=== PATIENT | female | born 1970 | race Caucasian/White ===

== ENCOUNTER 2020-03-10 12:06 | Inpatient (IN) | payer OTHER ==
[2020-03-10] MEDS ORDERED: Sodium Chloride 0.9% 1,000 ML IV SCH (12:30)
--- NOTE | 2020-03-10 12:33 | EDM.PDOC ---
ED HPI GENERAL MEDICAL PROBLEM - General Chief Complaint: Lower Extremity Injury/Pain Stated Complaint: leg swelling, drainage Time Seen by Provider: 03/10/20 12:22 Source of Information: Reports: Patient History Limitations: Reports: No Limitations - History of Present Illness INITIAL COMMENTS - FREE TEXT/NARRATIVE: Patient to the emergency department complaining of increased redness and swelling to both lower extremities the left worse than right. The patient was seen 2 weeks ago and started on antibiotic and antifungal medication. The patient does have chronic lymphedema to both lower extremities. The patient advises since Wednesday the symptoms have become more worse. The patient denies any chest pain pressure heaviness denies any palpitations irregular heartbeat d enies any calf pain. The patient denies any ear, nose, throat symptoms denies any chest pain or shortness of breath denies any abdominal pain no nausea vomiting denies any fever chills Onset: Gradual Duration: Week(s): (Symptoms over the past 2 weeks) Location: Reports: Lower Extremity, Left, Lower Extremity, Right Quality: Reports: Ache Severity: Moderate Improves with: Reports: None Worsens with: Reports: Movement (Symptoms worse with walking) Context: Reports: Other (Patient does have poor vascular circulation and chronic lymphedema of both lower extremities) Associated Symptoms: Denies: Chest Pain, Fever/Chills, Nausea/Vomiting, Shortness of Breath, Weakness Treatments ESTHETICIAN: Reports: Other (see below) (Patient has been on antibiotics and antifungal medications for 2 weeks) Left Lower Leg Pain Score (Numeric/FACES): 7 - Related Data Allergies Allergy/AdvReac Type Severity Reaction Status Date / Time azithromycin [From Zithromax] Allergy Intermediate Diarrhea Verified 03/10/20 12:09 Penicillins Allergy Intermediate Hives Verified 03/10/20 12:09 strawberry Allergy Intermediate Mouth Sores Verified 03/10/20 12:09 Sulfa (Sulfonamide Allergy Intermediate Hives Verified 03/10/20 12:09 Antibiotics) calamine Allergy Blisters Verified 03/10/20 12:32 clindamycin Allergy Rash Verified 03/10/20 12:09 latex Allergy Blisters Verified 03/10/20 12:32 shellfish Allergy Severe Anaphylactic Uncoded 03/10/20 12:09 Shock nuts Allergy Intermediate Mouth Sores Uncoded 03/10/20 12:09 Home Meds: Home Meds Albuterol [IJD: Ventolin HFA] 1 - 2 puff INH Q4H PRN 01/14/16 [History] Albuterol/Ipratropium [DuoNeb 3.0-0.5 MG/3 ML] 3 ml NEB Q4HRRT PRN 01/14/16 [History] Aspirin [Halfprin] 81 mg PO DAILY 01/14/16 [History] Furosemide [Lasix] 40 mg PO BID 01/14/16 [History] Simvastatin 20 mg PO BEDTIME 01/14/16 [History] estradioL [Estradiol] 1 mg PO DAILY 01/14/16 [History] rOPINIRole HCl [Requip] 1 mg PO BID 01/14/16 [History] rOPINIRole HCl [Ropinirole HCl] 4 mg PO BEDTIME 01/14/16 [History] Ferrous Sulfate [Iron] 325 mg PO DAILY 01/23/16 [History] Pantoprazole Sodium 40 mg PO DAILY 01/23/16 [History] Glucosamine/Chondroitn/C/Steve [Glucosamine-Chondr Complex] 1 each PO DAILY 02/16/19 [History] Pregabalin [Lyrica] 75 mg PO BID 02/16/19 [History] Gabapentin [Neurontin] 100 mg PO BID 08/28/19 [History] Gabapentin [Neurontin] 300 mg PO BEDTIME 08/28/19 [History] Past Medical History - Infectious Disease History Infectious Disease History: Reports: None - Past Surgical History HEENT Surgical History: Reports: Eye Surgery Female Surgical History: Reports: D&C, Hysterectomy Musculoskeletal Surgical History: Reports: Arthroscopic Knee Social & Family History - Tobacco Use Smoking Status *Q: Never Smoker - Caffeine Use Caffeine Use: Reports: Soda - Recreational Drug Use Recreational Drug Use: No Review of Systems - Review of Systems Review Of Systems: See Below Constitutional: Reports: No Symptoms. Denies: Chills, Fever Ears: Reports: No Symptoms Nose: Reports: No Symptoms Mouth/Throat: Reports: No Symptoms Respiratory: Reports: No Symptoms. Denies: Shortness of Breath Cardiovascular: Reports: No Symptoms. Denies: Chest Pain GI/Abdominal: Reports: No Symptoms. Denies: Abdominal Pain, Nausea, Vomiting Genitourinary: Reports: No Symptoms Musculoskeletal: Reports: Muscle Pain Skin: Reports: Erythema, Wound Neurological: Denies: Numbness, Tingling Psychiatric: Reports: No Symptoms ED EXAM, GENERAL - Physical Exam Exam: See Below Exam Limited By: No Limitations General Appearance: Alert, WD/WN, No Apparent Distress Ears: Normal External Exam Nose: Normal Inspection Throat/Mouth: Normal Inspection, Normal Voice, No Airway Compromise Head: Atraumatic, Normocephalic Neck: Normal Inspection, Supple, Non-Tender, Full Range of Motion Respiratory/Chest: No Respiratory Distress, Lungs Clear, Normal Breath Sounds, Chest Non-Tender Cardiovascular: Regular Rate, Rhythm Peripheral Pulses: 1+: Posterior Tibial (L) (positive with a doppler), Posterior Tibial (R) (positive with a doppler), 2+: Radial (L), Radial (R) GI/Abdominal: Soft, Non-Tender, Other (obese) Back Exam: Normal Inspection, Full Range of Motion Extremities: Normal Range of Motion, Normal Capillary Refill, Redness, Other (Significant lymphedema to both lower extremities). No: Janet's Sign Neurological: Alert, Oriented, Normal Cognition, No Motor/Sensory Deficits Psychiatric: Normal Affect, Normal Mood Skin Exam: Warm, Dry, Normal Color, Other (Open areas to both lower extremities mainly the left) Course - Vital Signs Text/Narrative:: The patient was evaluated in the emergency department CBC and general chemistri es are essentially negative lactic acid is normal. CRP is mildly elevated. As the patient has failed outpatient treatment, the patient will be admitted observation where she will have her legs elevated and wrapped with Tony wraps she will have dressings applied to her lower extremities before the Tony wraps. See the nursing notes for details. The patient will also be given Rocephin 2 g IV now and 1 g every 24 hours. The patient will also be given Lasix 40 mg IV as she does take 40 mg p.o. at home routinely. The patient will have lab work redrawn in the morning and further assessed in the morning and a disposition and changes to the treatment plan will be made at that time. Last Recorded V/S: Last Vital Signs Temp 36.8 C 03/10/20 12:07 Pulse 96 03/10/20 12:07 Resp 16 03/10/20 12:07 BP 163/82 H 03/10/20 12:07 Pulse Ox 99 03/10/20 12:07 - Orders/Labs/Meds Orders: Active Orders 24 hr Category Date Time Status Patient Status Manage Transfer [TRANSFER] Routine ADT 03/10/20 13:37 Active CULTURE BLOOD [BC] Stat Lab 03/10/20 12:42 Received CULTURE BLOOD [BC] Stat Lab 03/10/20 13:00 Received CULTURE WOUND [RM] Stat Lab 03/10/20 12:25 Ordered UA W/GAYLA RFLX IF INDICATED [URIN] Stat Lab 03/10/20 12:26 Ordered Sodium Chloride 0.9% [Normal Saline] 1,000 ml Med 03/10/20 12:30 Active IV ASDIRECTED cefTRIAXone [Rocephin] Med 03/11/20 14:00 Ordered 1 gm IVPUSH Q24H Blood Culture x2 Reflex Set [OM.PC] Stat Oth 03/10/20 12:26 Ordered Resuscitation Status Routine Resus Stat 03/10/20 13:41 Ordered Medication Orders Ceftriaxone Sodium (Rocephin) 1 gm IVPUSH Q24H [facility] Sodium Chloride (Normal Saline) 1,000 mls @ 75 mls/hr IV ASDIRECTED [facility] Last Admin: 03/10/20 12:46 Dose: 75 mls/hr Documented by: GWEN Labs: Laboratory Tests 03/10/20 03/10/20 03/10/20 Range/Units 12:42 12:42 12:42 WBC 6.3 (5.0-10.0) 10^3/uL RBC 4.92 (4.00-5.50) 10^6/uL Hgb 15.0 (12.0-16.0) g/dL Hct 44.5 (37.0-47.0) % MCV 90.4 (82.0-94.0) fL MCH 30.5 (27.0-32.0) pg MCHC 33.7 (33.0-38.0) g/dL RDW Coeff of Debi 12.9 (11.0-15.0) % Plt Count 305 (150-400) 10^3/uL Add Manual Diff Yes Neutrophils % (Manual) 47 (35-85) % Lymphocytes % (Manual) 38 (21-55) % Monocytes % (Manual) 4 (2-12) % Eosinophils % (Manual) 11 H (0-5) % Absolute Neutrophils 2.96 (1.80-7.00) 10^3/uL Lymphocytes # (Manual) 2.39 (1.00-4.80) 10^3/uL Monocytes # (Manual) 0.25 (0.00-0.80) 10^3/uL Eosinophils # (Manual) 0.69 H (0.00-0.45) 10^3/uL Sodium 143 (136-145) mEq/L Potassium 3.8 (3.5-5.0) mEq/L Chloride 105 (98-106) mEq/L Carbon Dioxide 29 (21-32) mmol/L BUN 23 H (7-18) mg/dL Creatinine 1.0 (0.6-1.0) mg/dL Est Cr Clr Drug Dosing 55.68 mL/min Estimated GFR (MDRD) 59 L (>=60) mL/min Glucose 151 H (75-99) mg/dL Lactic Acid 1.6 (0.4-2.0) mmol/L Calcium 8.5 (8.4-10.1) mg/dL Total Bilirubin 0.2 (0.0-1.0) mg/dL AST 33 (15-37) U/L ALT 44 (12-78) U/L Alkaline Phosphatase 92 (46-116) U/L C-Reactive Protein 1.7 H (0.2-0.8) mg/dL Total Protein 6.6 (6.4-8.2) g/dL Albumin 3.1 L (3.4-5.0) g/dL Meds: Medications Generic Name Dose Route Start Last Admin Trade Name Freq PRN Reason Stop Dose Admin Ceftriaxone Sodium 1 gm 03/11/20 14:00 Rocephin IVPUSH Q24H [facility] Sodium Chloride 1,000 mls @ 75 mls/hr 03/10/20 12:30 03/10/20 12:46 Normal Saline IV 75 mls/hr ASDIRECTED [facility] Administration Discontinued Medications Generic Name Dose Route Start Last Admin Trade Name Freq PRN Reason Stop Dose Admin Ceftriaxone Sodium 2 gm 03/10/20 13:46 Rocephin IVPUSH 03/10/20 13:47 ONETIME ONE Departure - Departure Time of Disposition: 13:49 Disposition: Refer to Observation Condition: Good Clinical Impression: Cellulitis of both lower extremities, Failure of outpatient treatment, Chronic acquired lymphedema - Discharge Information *PRESCRIPTION DRUG MONITORING PROGRAM REVIEWED*: Not Applicable *COPY OF PRESCRIPTION DRUG MONITORING REPORT IN PATIENT NATA: Not Applicable Referrals: PCP,Unknown [Primary Care Provider] - Forms: ED Department Discharge Sepsis Event Note (ED) - Evaluation Sepsis Screening Result: No Definite Risk - Focused Exam Vital Signs: Vital Signs Temp Pulse Resp BP Pulse Ox 03/10/20 12:07 36.8 C 96 16 163/82 H 99 - Problem List & Annotations (1) Cellulitis of both lower extremities SNOMED Code(s): 647927838 Code(s): L03.115 - CELLULITIS OF RIGHT LOWER LIMB; L03.116 - CELLULITIS OF LEFT LOWER LIMB Status: Acute Priority: High Current Visit: Yes (2) Chronic acquired lymphedema SNOMED Code(s): 35820493 Code(s): I89.0 - LYMPHEDEMA, NOT ELSEWHERE CLASSIFIED Status: Acute Priority: High Current Visit: Yes (3) Failure of outpatient treatment SNOMED Code(s): 152747778 Code(s): Z78.9 - OTHER SPECIFIED HEALTH STATUS Status: Acute Priority: Medium Current Visit: Yes - Problem List Review Problem List Initiated/Reviewed/Updated: Yes - My Orders Last 24 Hours: My Active Orders 03/10/20 12:25 CULTURE WOUND [RM] Stat 03/10/20 12:26 UA W/GAYLA RFLX IF INDICATED [URIN] Stat Blood Culture x2 Reflex Set [OM.PC] Stat 03/10/20 12:30 Sodium Chloride 0.9% [Normal Saline] 1,000 ml IV ASDIRECTED 03/10/20 12:42 CULTURE BLOOD [BC] Stat 03/10/20 13:00 CULTURE BLOOD [BC] Stat 03/10/20 13:37 Patient Status Manage Transfer [TRANSFER] Routine 03/10/20 13:41 Resuscitation Status Routine 03/11/20 14:00 cefTRIAXone [Rocephin] 1 gm IVPUSH Q24H - Assessment/Plan Admission H&P: Please use this note as an admission H&P Last 24 Hours: My Active Orders 03/10/20 12:25 CULTURE WOUND [RM] Stat 03/10/20 12:26 UA W/GAYLA RFLX IF INDICATED [URIN] Stat Blood Culture x2 Reflex Set [OM.PC] Stat 03/10/20 12:30 Sodium Chloride 0.9% [Normal Saline] 1,000 ml IV ASDIRECTED 03/10/20 12:42 CULTURE BLOOD [BC] Stat 03/10/20 13:00 CULTURE BLOOD [BC] Stat 03/10/20 13:37 Patient Status Manage Transfer [TRANSFER] Routine 03/10/20 13:41 Resuscitation Status Routine 03/11/20 14:00 cefTRIAXone [Rocephin] 1 gm IVPUSH Q24H Plan: The patient's past medical story, past surgical history, social history and past family medical history is reviewed see the nursing notes for complete details
[2020-03-10] MEDS ORDERED: cefTRIAXone 2 GM Vial IVPUSH ONE (13:46)
[2020-03-10] MEDS ORDERED: Morphine 4 MG/ML VIAL IVPUSH PRN (13:54)
[2020-03-10] MEDS: Sodium Chloride 0.9% 1,000 ML IV SCH (14:05)
[2020-03-10] MEDS ORDERED: Albuterol/Ipratropium 3.0-0.5 MG/3 ML Neb Soln NEB PRN (14:15)
[2020-03-10] MEDS ORDERED: Albuterol 8 GM Inhaler INH PRN (14:15)
[2020-03-10] MEDS ORDERED: Sodium Chloride 0.9% 10 ML Syringe FLUSH PRN (14:15)
[2020-03-10] MEDS: Furosemide 40 MG/4 ML VIAL IVPUSH SCH (14:43)
[2020-03-10] MEDS: Acetaminophen/HYDROcodone 325-5 MG Tab PO PRN ×2 (14:56→19:36)
[2020-03-10] MEDS: Gabapentin 100 MG Cap **OWN MED PO SCH ×2 (18:02→19:31)
[2020-03-10] MEDS: ROPINIROLE 4 MG PO SCH (19:30)
[2020-03-10] MEDS: Simvastatin 20 MG Tab **OWN MED PO SCH (19:32)
[2020-03-10] MEDS: PREGABALIN 75 MG PO SCH (19:32)
[2020-03-11] MEDS: Acetaminophen/HYDROcodone 325-5 MG Tab PO PRN ×4 (00:44→22:04)
[2020-03-11] MEDS: Sodium Chloride 0.9% 1,000 ML IV SCH ×2 (00:47→19:34)
[2020-03-11] MEDS: Furosemide 40 MG/4 ML VIAL IVPUSH SCH ×2 (02:14→14:24)
[2020-03-11] MEDS ORDERED: [UNRECOGNIZED DRUG - OTHER] PO SCH (08:00)
[2020-03-11] MEDS ORDERED: ESCITALOPRAM 10 MG PO SCH (08:00)
[2020-03-11 08:04] LABS: CHLORIDE,CL 106 mEq/L (98-106); SODIUM,NA 142 mEq/L (136-145)
[2020-03-11] MEDS: Gabapentin 100 MG Cap **OWN MED PO SCH ×3 (08:06→19:22)
[2020-03-11] MEDS: ESTRADIOL 1 MG PO SCH (08:06)
[2020-03-11] MEDS: PREGABALIN 75 MG PO SCH ×2 (08:07→19:23)
[2020-03-11] MEDS: Pantoprazole 40 MG Tab.CR PO SCH (08:08)
[2020-03-11] MEDS: Aspirin 81 MG Tab.EC PO SCH (08:15)
[2020-03-11] MEDS: Ferrous Sulfate 324 MG Tab.EC PO SCH (08:18)
[2020-03-11] MEDS ORDERED: Enoxaparin 40 MG/0.4 ML Syringe SUBCUT SCH (09:00)
--- NOTE | 2020-03-11 10:30 | PCM.PN ---
- General Info Date of Service: 03/11/20 Admission Dx/Problem (Free Text): Cellulitis bilateral lower extremities Functional Status: Reports: Pain Controlled (has increased discomfort with palpation of the left lower leg), Tolerating Diet, Ambulating - Review of Systems General: Denies: Fever HEENT: Reports: No Symptoms Pulmonary: Reports: No Symptoms Cardiovascular: Reports: No Symptoms Gastrointestinal: Reports: No Symptoms Musculoskeletal: Reports: Leg Pain Skin: Reports: Other (open ulcerated areas to left leg) Neurological: Reports: No Symptoms - Patient Data Vitals - Most Recent: Last Vital Signs Temp 97.3 F 03/11/20 07:57 Pulse 77 03/11/20 07:57 Resp 18 03/11/20 07:57 BP 141/61 H 03/11/20 07:57 Pulse Ox 98 03/11/20 07:57 Weight - Most Recent: 350 lb 6.4 oz I&O - Last 24 Hours: Intake & Output 03/10/20 03/11/20 03/11/20 22:59 06:59 14:59 Intake Total 803 Balance 803 Lab Results Last 24 Hours: Laboratory Results - last 24 hr 03/10/20 03/10/20 03/10/20 Range/Units 12:42 12:42 12:42 WBC 6.3 (5.0-10.0) 10^3/uL RBC 4.92 (4.00-5.50) 10^6/uL Hgb 15.0 (12.0-16.0) g/dL Hct 44.5 (37.0-47.0) % MCV 90.4 (82.0-94.0) fL MCH 30.5 (27.0-32.0) pg MCHC 33.7 (33.0-38.0) g/dL RDW Coeff of Debi 12.9 (11.0-15.0) % Plt Count 305 (150-400) 10^3/uL Neut % (Auto) (35-85) % Lymph % (Auto) (10-55) % [place] % (Auto) (0-16) % Eos % (Auto) (0-5) % Baso % (Auto) (0-3) % Neut # (Auto) (1.80-7.00) 10^3/uL Lymph # (Auto) (1.00-4.80) 10^3/uL [place] # (Auto) (0.00-0.80) 10^3/uL Eos # (Auto) (0.00-0.45) 10^3/uL Baso # (Auto) 10^3/uL Add Manual Diff Yes Neutrophils % (Manual) 47 (35-85) % Lymphocytes % (Manual) 38 (21-55) % Monocytes % (Manual) 4 (2-12) % Eosinophils % (Manual) 11 H (0-5) % Absolute Neutrophils 2.96 (1.80-7.00) 10^3/uL Lymphocytes # (Manual) 2.39 (1.00-4.80) 10^3/uL Monocytes # (Manual) 0.25 (0.00-0.80) 10^3/uL Eosinophils # (Manual) 0.69 H (0.00-0.45) 10^3/uL Sodium 143 (136-145) mEq/L Potassium 3.8 (3.5-5.0) mEq/L Chloride 105 (98-106) mEq/L Carbon Dioxide 29 (21-32) mmol/L BUN 23 H (7-18) mg/dL Creatinine 1.0 (0.6-1.0) mg/dL Est Cr Clr Drug Dosing 55.68 mL/min Estimated GFR (MDRD) 59 L (>=60) mL/min Glucose 151 H (75-99) mg/dL Lactic Acid 1.6 (0.4-2.0) mmol/L Calcium 8.5 (8.4-10.1) mg/dL Magnesium (1.8-2.4) mg/dL Total Bilirubin 0.2 (0.0-1.0) mg/dL AST 33 (15-37) U/L ALT 44 (12-78) U/L Alkaline Phosphatase 92 (46-116) U/L C-Reactive Protein 1.7 H (0.2-0.8) mg/dL Total Protein 6.6 (6.4-8.2) g/dL Albumin 3.1 L (3.4-5.0) g/dL Urine Color (YELLOW) Urine Appearance (CLEAR) Urine pH (4.5-8.0) Ur Specific [place] (1.003-1.020) Urine Protein (NEGATIVE) mg/dL Urine Glucose (UA) (NEGATIVE) mg/dL Urine Ketones (NEGATIVE) mg/dL Urine Occult Blood (NEGATIVE) Urine Nitrite (NEGATIVE) Urine Bilirubin (NEGATIVE) Urine Urobilinogen (0.2-1.0) EU/dL Ur Leukocyte Esterase (NEGATIVE) 03/10/20 03/11/20 03/11/20 Range/Units 14:00 07:50 07:50 WBC 6.4 (5.0-10.0) 10^3/uL RBC 4.41 (4.00-5.50) 10^6/uL Hgb 13.4 (12.0-16.0) g/dL Hct 40.8 (37.0-47.0) % MCV 92.5 (82.0-94.0) fL MCH 30.4 (27.0-32.0) pg MCHC 32.8 L (33.0-38.0) g/dL RDW Coeff of Debi 13.2 (11.0-15.0) % Plt Count 280 (150-400) 10^3/uL Neut % (Auto) 49.3 (35-85) % Lymph % (Auto) 31.8 (10-55) % [place] % (Auto) 8.8 (0-16) % Eos % (Auto) 9.6 H (0-5) % Baso % (Auto) 0.5 (0-3) % Neut # (Auto) 3.14 (1.80-7.00) 10^3/uL Lymph # (Auto) 2.02 (1.00-4.80) 10^3/uL [place] # (Auto) 0.56 (0.00-0.80) 10^3/uL Eos # (Auto) 0.61 H (0.00-0.45) 10^3/uL Baso # (Auto) 0.03 10^3/uL Add Manual Diff Neutrophils % (Manual) (35-85) % Lymphocytes % (Manual) (21-55) % Monocytes % (Manual) (2-12) % Eosinophils % (Manual) (0-5) % Absolute Neutrophils (1.80-7.00) 10^3/uL Lymphocytes # (Manual) (1.00-4.80) 10^3/uL Monocytes # (Manual) (0.00-0.80) 10^3/uL Eosinophils # (Manual) (0.00-0.45) 10^3/uL Sodium 142 (136-145) mEq/L Potassium 3.5 (3.5-5.0) mEq/L Chloride 106 (98-106) mEq/L Carbon Dioxide 30 (21-32) mmol/L BUN 19 H (7-18) mg/dL Creatinine 0.9 (0.6-1.0) mg/dL Est Cr Clr Drug Dosing 61.86 mL/min Estimated GFR (MDRD) > 60 (>=60) mL/min Glucose 140 H (75-99) mg/dL Lactic Acid (0.4-2.0) mmol/L Calcium 7.8 L (8.4-10.1) mg/dL Magnesium 2.0 (1.8-2.4) mg/dL Total Bilirubin (0.0-1.0) mg/dL AST (15-37) U/L ALT (12-78) U/L Alkaline Phosphatase (46-116) U/L C-Reactive Protein (0.2-0.8) mg/dL Total Protein (6.4-8.2) g/dL Albumin (3.4-5.0) g/dL Urine Color Dark yellow (YELLOW) Urine Appearance Slightly cloudy (CLEAR) Urine pH 6.5 (4.5-8.0) Ur Specific [place] 1.025 H (1.003-1.020) Urine Protein Negative (NEGATIVE) mg/dL Urine Glucose (UA) Negative (NEGATIVE) mg/dL Urine Ketones Negative (NEGATIVE) mg/dL Urine Occult Blood Negative (NEGATIVE) Urine Nitrite Negative (NEGATIVE) Urine Bilirubin Negative (NEGATIVE) Urine Urobilinogen 0.2 (0.2-1.0) EU/dL Ur Leukocyte Esterase Negative (NEGATIVE) Terry Results Last 24 Hours: Microbiology 03/10/20 14:00 Wound Culture - Preliminary Leg, Left Gram Positive Cocci Gram Negative Rods Med Orders - Current: Current Medications Hydrocodone Bitart/Acetaminophen ([place] 325-5 Mg) 1 tab PO Q4H PRN PRN Reason: Pain (moderate 4-6) Last Admin: 03/11/20 00:44 Dose: 1 tab Documented by: Albuterol (Ventolin Hfa) 1 - 2 gm INH Q4H PRN PRN Reason: Shortness of Breath Albuterol/Ipratropium (Duoneb 3.0-0.5 Mg/3 Ml) 3 ml NEB Q4H PRN PRN Reason: Shortness of Breath Aspirin (Halfprin) 81 mg PO DAILY [facility] Last Admin: 03/11/20 08:15 Dose: 81 mg Documented by: Ceftriaxone Sodium (Rocephin) 1 gm IVPUSH Q24H [facility] Enoxaparin Sodium (Lovenox) 40 mg SUBCUT Q24H [facility] Last Admin: 03/11/20 08:15 Dose: 40 mg Documented by: Estradiol (Estradiol) 1 mg PO DAILY [facility] Last Admin: 03/11/20 08:06 Dose: 1 mg Documented by: Ferrous Sulfate (Ferrous Sulfate) 324 mg PO DAILY [facility] Last Admin: 03/11/20 08:18 Dose: 324 mg Documented by: Furosemide (Lasix) 40 mg IVPUSH Q12H [facility] Last Admin: 03/11/20 02:14 Dose: 40 mg Documented by: Gabapentin (Neurontin) 100 mg PO BID@0800,1500 [facility] Last Admin: 03/11/20 08:06 Dose: 100 mg Documented by: Gabapentin (Neurontin) 300 mg PO BEDTIME [facility] Last Admin: 03/10/20 19:31 Dose: 300 mg Documented by: Sodium Chloride (Normal Saline) 1,000 mls @ 75 mls/hr IV ASDIRECTED [facility] Last Admin: 03/11/20 00:47 Dose: 75 mls/hr Documented by: Vancomycin HCl 1.75 gm/ Premix 350 mls @ 175 mls/hr IV Q12H [facility] Morphine Sulfate (Morphine) 4 mg IVPUSH Q4H PRN PRN Reason: Pain (severe 7-10) Non-Formulary Medication (Glucosamine/Chondroitn/C/Steve [Glucosamine-Chondr Complex]) 1 each PO DAILY [facility] Pregabalin 75 Mg (Caps Own Med) 0 each PO BID [facility] Last Admin: 03/11/20 08:07 Dose: 1 each Documented by: Ropinirole 4 Mg (Own Med) 0 mg PO BEDTIME [facility] Last Admin: 03/10/20 19:30 Dose: 4 mg Documented by: Escitalopram 10 Mg * (*Own Med) 0 each PO 0800 [facility] Last Admin: 03/11/20 08:07 Dose: 1 each Documented by: Pantoprazole Sodium (Protonix) 40 mg PO DAILY [facility] Last Admin: 03/11/20 08:08 Dose: 40 mg Documented by: Simvastatin (Zocor) 20 mg PO BEDTIME [facility] Last Admin: 03/10/20 19:32 Dose: 20 mg Documented by: Sodium Chloride (Saline Flush) 10 ml FLUSH ASDIRECTED PRN PRN Reason: Keep Vein Open Vancomycin HCl (Pharmacy To Dose - Vancomycin) 0 dose .XX ASDIRECTED [facility] Discontinued Medications Ceftriaxone Sodium (Rocephin) 2 gm IVPUSH ONETIME ONE Stop: 03/10/20 13:47 Last Admin: 03/10/20 13:54 Dose: 2 gm Documented by: Ceftriaxone Sodium (Rocephin) 1 gm IVPUSH Q24H [facility] Sodium Chloride (Normal Saline) 1,000 mls @ 75 mls/hr IV ASDIRECTED [facility] Last Admin: 03/10/20 12:46 Dose: 75 mls/hr Documented by: Ropinirole 2 Mg Tabs (Own Med) 0 each PO 0800,1200 [facility] - Exam General: Alert, Oriented HEENT: Mucous Membr. Moist/[place] Neck: Supple Lungs: Clear to Auscultation, Normal Respiratory Effort Cardiovascular: Regular Rate, Regular Rhythm GI/Abdominal Exam: Normal Bowel Sounds, Soft, Non-Tender Extremities: Pedal Edema, Leg Pain, Increased Warmth, Other (Patient has increased redness, excoriated areas to left posterior leg. Tender with palpation. Has serosanguinous drainage noted. Bandage from right leg not removed but pictures viewed from area show left leg has more concern) Wound/Incisions: Drainage, Erythema Improving Sepsis Event Note - Evaluation Sepsis Screening Result: No Definite Risk - Focused Exam Vital Signs: Vital Signs Temp Pulse Resp BP Pulse Ox 03/11/20 07:57 97.3 F 77 18 141/61 H 98 03/11/20 00:00 97.7 F 90 20 128/56 L 96 Date Exam was Performed: 03/11/20 Time Exam was Performed: 10:23 - Problem List & Annotations (1) Cellulitis of both lower extremities SNOMED Code(s): 736476436 Code(s): L03.115 - CELLULITIS OF RIGHT LOWER LIMB; L03.116 - CELLULITIS OF LEFT LOWER LIMB Status: Acute Priority: High Current Visit: Yes - Problem List Review Problem List Initiated/Reviewed/Updated: Yes - My Orders Last 24 Hours: My Active Orders 03/11/20 09:36 PT Evaluation and Treatment [CONS] Routine 03/11/20 09:45 Pharmacy to Dose - Vancomycin See Dose Instructions .XX ASDIRECTED 03/11/20 11:00 Vancomycin/Water for INJ (PEG) [Vancomycin 2 GM/400 ML Premix] 1.75 gm Premix Bag 1 bag IV Q12H - Assessment Assessment:: Cellulitis of bilateral lower extremities. - Plan Plan:: Patient continues to have discomfort in LLE, especially with any manipulation of leg and dressing change. Does have moderate amount of serosanguinous drainage noted on the bandage. Excoriated, open lesions to posterior leg. Leg is warm to the touch, tender. Very red. No fevers. Labs remain stable, WBC is normal at 6.3. Will have PT look in to ordering pump compression devices that she can utilize at home for the edema in her legs. Add Vancomycin in addition to the Rocephin. Ambulate. Transfer to acute status.
[2020-03-11] MEDS ORDERED: Vancomycin 1.75 GM in Sodium Chloride 0.9% 500 ML IV SCH (12:00)
[2020-03-11] MEDS ORDERED: cefTRIAXone 1 GM Vial IVPUSH SCH (14:00)
[2020-03-11] MEDS: cefTRIAXone 1 GM Vial IVPUSH SCH (14:24)
[2020-03-11] MEDS: ROPINIROLE 4 MG PO SCH (19:23)
[2020-03-11] MEDS: Simvastatin 20 MG Tab **OWN MED PO SCH (19:24)
[2020-03-11] MEDS: Vancomycin 1.75 GM in Sodium Chloride 0.9% 500 ML IV SCH (20:18)
[2020-03-12] MEDS: Ibuprofen 200 MG Tab PO PRN ×2 (00:04→21:27)
[2020-03-12] MEDS ORDERED: Gabapentin 100 MG Cap PO SCH (07:32)
[2020-03-12] MEDS: Furosemide 40 MG/4 ML VIAL IVPUSH SCH ×2 (07:45→15:26)
[2020-03-12] MEDS: ROPINIROLE 2 MG PO SCH ×4 (07:45→14:51)
[2020-03-12] MEDS: Aspirin 81 MG Tab.EC PO SCH (07:48)
[2020-03-12] MEDS: Ferrous Sulfate 324 MG Tab.EC PO SCH (07:49)
[2020-03-12] MEDS: Pregabalin 25 MG Cap PO SCH ×2 (07:49→19:38)
[2020-03-12] MEDS: Gabapentin 100 MG CAP PO SCH ×2 (07:49→14:51)
[2020-03-12] MEDS: ESTRADIOL 1 MG PO SCH (07:53)
[2020-03-12] MEDS: Enoxaparin 40 MG/0.4 ML Syringe SUBCUT SCH (07:53)
[2020-03-12] MEDS: Citalopram 10 MG Tab PO SCH (08:02)
[2020-03-12 08:03] LABS: CHLORIDE,CL 109 mEq/L (98-106); SODIUM,NA 144 mEq/L (136-145)
[2020-03-12] MEDS: Pantoprazole 40 MG Tab.CR PO SCH (08:03)
--- NOTE | 2020-03-12 08:18 | PCM.PN ---
- General Info Date of Service: 03/12/20 Admission Dx/Problem (Free Text): Cellulitis bilateral lower extremities Functional Status: Reports: Pain Controlled, Tolerating Diet, Ambulating - Review of Systems General: Reports: Malaise. Denies: Fever, Weakness, Fatigue HEENT: Reports: No Symptoms Pulmonary: Denies: Shortness of Breath, Cough Cardiovascular: Reports: Edema. Denies: Chest Pain Gastrointestinal: Denies: Abdominal Pain, Nausea, Vomiting Genitourinary: Reports: No Symptoms Musculoskeletal: Reports: Leg Pain Skin: Reports: Other (redness, warmth and drainage noted to legs. tender) Neurological: Reports: No Symptoms - Patient Data Vitals - Most Recent: Last Vital Signs Temp 96.3 F L 03/12/20 04:00 Pulse 83 03/12/20 04:00 Resp 18 03/12/20 04:00 BP 129/58 L 03/12/20 04:00 Pulse Ox 98 03/12/20 04:00 Weight - Most Recent: 350 lb 6.4 oz Lab Results Last 24 Hours: Laboratory Results - last 24 hr 03/12/20 Range/Units 07:30 WBC 5.6 (5.0-10.0) 10^3/uL RBC 4.25 (4.00-5.50) 10^6/uL Hgb 13.0 (12.0-16.0) g/dL Hct 39.7 (37.0-47.0) % MCV 93.4 (82.0-94.0) fL MCH 30.6 (27.0-32.0) pg MCHC 32.7 L (33.0-38.0) g/dL RDW Coeff of Debi 13.1 (11.0-15.0) % Plt Count 262 (150-400) 10^3/uL Neut % (Auto) 49.0 (35-85) % Lymph % (Auto) 31.9 (10-55) % Zavala % (Auto) 7.7 (0-16) % Eos % (Auto) 10.9 H (0-5) % Baso % (Auto) 0.5 (0-3) % Neut # (Auto) 2.75 (1.80-7.00) 10^3/uL Lymph # (Auto) 1.79 (1.00-4.80) 10^3/uL [place] # (Auto) 0.43 (0.00-0.80) 10^3/uL Eos # (Auto) 0.61 H (0.00-0.45) 10^3/uL Baso # (Auto) 0.03 10^3/uL Terry Results Last 24 Hours: Microbiology 03/10/20 14:00 Wound Culture - Preliminary Leg, Left Streptococcus Group A Gram Negative Rods 03/10/20 13:00 Aerobic Blood Culture - Preliminary Blood - Venous NO GROWTH AFTER 1 DAY Anaerobic Blood Culture - Preliminary NO GROWTH AFTER 1 DAY 03/10/20 12:42 Aerobic Blood Culture - Preliminary Blood - Venous - Lab Draw NO GROWTH AFTER 1 DAY Anaerobic Blood Culture - Preliminary NO GROWTH AFTER 1 DAY Med Orders - Current: Current Medications Hydrocodone Bitart/Acetaminophen ([place] 325-5 Mg) 1 tab PO Q4H PRN PRN Reason: Pain (moderate 4-6) Last Admin: 03/11/20 22:04 Dose: 1 tab Documented by: Albuterol (Ventolin Hfa) 1 - 2 gm INH Q4H PRN PRN Reason: Shortness of Breath Albuterol/Ipratropium (Duoneb 3.0-0.5 Mg/3 Ml) 3 ml NEB Q4H PRN PRN Reason: Shortness of Breath Aspirin (Halfprin) 81 mg PO DAILY [facility] Last Admin: 03/12/20 07:48 Dose: 81 mg Documented by: Ceftriaxone Sodium (Rocephin) 1 gm IVPUSH Q24H [facility] Last Admin: 03/11/20 14:24 Dose: 1 gm Documented by: Citalopram Hydrobromide (Celexa) 20 mg PO DAILY [facility] Last Admin: 03/12/20 08:02 Dose: 20 mg Documented by: Enoxaparin Sodium (Lovenox) 40 mg SUBCUT DAILY [facility] Last Admin: 03/12/20 07:53 Dose: 40 mg Documented by: Estradiol (Estradiol) 1 mg PO DAILY [facility] Last Admin: 03/12/20 07:53 Dose: 1 mg Documented by: Ferrous Sulfate (Ferrous Sulfate) 324 mg PO DAILY [facility] Last Admin: 03/12/20 07:49 Dose: 324 mg Documented by: Furosemide (Lasix) 40 mg IVPUSH BID@0800,1400 [facility] Last Admin: 03/12/20 07:45 Dose: 40 mg Documented by: Gabapentin (Neurontin) 100 mg PO BID@0800,1500 [facility] Last Admin: 03/12/20 07:49 Dose: 100 mg Documented by: Gabapentin (Neurontin) 300 mg PO BEDTIME [facility] Hydroxyzine HCl (Atarax) 50 mg PO Q8H PRN PRN Reason: Itching Sodium Chloride (Normal Saline) 1,000 mls @ 75 mls/hr IV ASDIRECTED [facility] Last Admin: 03/11/20 19:34 Dose: 75 mls/hr Documented by: Vancomycin HCl 1.75 gm/ Sodium (Chloride) 500 mls @ 250 mls/hr IV BID [facility] Last Admin: 03/11/20 20:18 Dose: 250 mls/hr Documented by: Ibuprofen (Motrin) 600 mg PO Q6H PRN PRN Reason: Pain (moderate 4-6) Last Admin: 03/12/20 00:04 Dose: 600 mg Documented by: Morphine Sulfate (Morphine) 4 mg IVPUSH Q4H PRN PRN Reason: Pain (severe 7-10) Glucosamine/Chondroitn/C/Steve [ Glucosamine-Chondr Complex] 1 each PO DAILY [facility] Ropinirole 4 Mg (Own Med) 0 mg PO BEDTIME [facility] Last Admin: 03/11/20 19:23 Dose: 4 mg Documented by: Pantoprazole Sodium (Protonix) 40 mg PO DAILY [facility] Last Admin: 03/12/20 08:03 Dose: 40 mg Documented by: Pregabalin (Lyrica) 75 mg PO BID [facility] Last Admin: 03/12/20 07:49 Dose: 75 mg Documented by: Simvastatin (Zocor) 20 mg PO BEDTIME [facility] Last Admin: 03/11/20 19:24 Dose: 20 mg Documented by: Sodium Chloride (Saline Flush) 10 ml FLUSH ASDIRECTED PRN PRN Reason: Keep Vein Open Vancomycin HCl (Pharmacy To Dose - Vancomycin) 0 dose .XX ASDIRECTED [facility] Discontinued Medications Ceftriaxone Sodium (Rocephin) 2 gm IVPUSH ONETIME ONE Stop: 03/10/20 13:47 Last Admin: 03/10/20 13:54 Dose: 2 gm Documented by: Ceftriaxone Sodium (Rocephin) 1 gm IVPUSH Q24H [facility] Enoxaparin Sodium (Lovenox) 40 mg SUBCUT Q24H [facility] Last Admin: 03/11/20 08:15 Dose: 40 mg Documented by: Furosemide (Lasix) 40 mg IVPUSH Q12H [facility] Last Admin: 03/11/20 02:14 Dose: 40 mg Documented by: Gabapentin (Neurontin) 100 mg PO BID@0800,1500 [facility] Last Admin: 03/11/20 14:24 Dose: 100 mg Documented by: Gabapentin (Neurontin) 300 mg PO BEDTIME [facility] Last Admin: 03/11/20 19:22 Dose: 300 mg Documented by: Sodium Chloride (Normal Saline) 1,000 mls @ 75 mls/hr IV ASDIRECTED [facility] Last Admin: 03/10/20 12:46 Dose: 75 mls/hr Documented by: Vancomycin HCl 1.75 gm/ Premix 350 mls @ 175 mls/hr IV Q12H [facility] Last Admin: 03/11/20 11:30 Dose: Not Given Documented by: Vancomycin HCl 1.75 gm/ Sodium (Chloride) 500 mls @ 250 mls/hr IV Q12H [facility] Last Admin: 03/11/20 11:58 Dose: 250 mls/hr Documented by: Pregabalin 75 Mg (Caps Own Med) 0 each PO BID [facility] Last Admin: 03/11/20 19:23 Dose: 1 each Documented by: Ropinirole 2 Mg Tabs (Own Med) 0 each PO 0800,1200 [facility] Escitalopram 10 Mg * (*Own Med) 0 each PO 0800 [facility] Last Admin: 03/11/20 08:07 Dose: 1 each Documented by: - Exam General: Alert, Oriented HEENT: Mucous Membr. Moist/[place] Neck: Supple Lungs: Clear to Auscultation, Normal Respiratory Effort Cardiovascular: Regular Rate, Regular Rhythm GI/Abdominal Exam: Normal Bowel Sounds, Soft, Non-Tender Extremities: Pedal Edema (3+ edema to LLE, 2+ RLE), Increased Warmth, Redness (redness continues to left lower leg but has improved in regards to excoriation to the wounds. Less swelling. brick tender. Serosanguinous drainage noted on bandage. RLE is laura in color, minimal drainage. Swelling significantly better.) Sepsis Event Note - Evaluation Sepsis Screening Result: No Definite Risk - Focused Exam Vital Signs: Vital Signs Temp Pulse Resp BP Pulse Ox 03/12/20 04:00 96.3 F L 83 18 129/58 L 98 03/11/20 23:46 98.1 F 88 16 137/65 98 Date Exam was Performed: 03/12/20 Time Exam was Performed: 10:35 - Problem List & Annotations (1) Cellulitis of both lower extremities SNOMED Code(s): 021212680 Code(s): L03.115 - CELLULITIS OF RIGHT LOWER LIMB; L03.116 - CELLULITIS OF LEFT LOWER LIMB Status: Acute Priority: High Current Visit: Yes - Problem List Review Problem List Initiated/Reviewed/Updated: Yes - My Orders Last 24 Hours: My Active Orders 03/11/20 09:36 PT Evaluation and Treatment [CONS] Routine 03/11/20 09:45 Pharmacy to Dose - Vancomycin See Dose Instructions .XX ASDIRECTED 03/11/20 10:30 Patient Status [ADT] Routine 03/11/20 14:26 hydrOXYzine HCL [Atarax] 50 mg PO Q8H PRN 03/12/20 05:11 BASIC METABOLIC PANEL,BMP [CHEM] AM C-REACTIVE PROTEIN [CHEM] AM - Assessment Assessment:: Cellulitis of bilateral lower extremities. - Plan Plan:: Patient continues to have discomfort in LLE, especially with any manipulation of leg and dressing change. Does have moderate amount of serosanguinous drainage noted on the bandage. Excoriated, open lesions to posterior leg. Leg is warm to the touch, tender. Very red. No fevers. Labs remain stable, WBC is normal at 6.3. Will have PT look in to ordering pump compression devices that she can utilize at home for the edema in her legs. Add Vancomycin in addition to the Rocephin. Ambulate. Transfer to acute status. 03-12-2020 Patient's legs showing improvement. Has less swelling in both, less redness to left lower extremity and appears less excoriated. Continues to have open areas with drainage. RLE is much improved. Minimal open areas. Both legs are warm to the touch. Afebrile. WBC remains normal at 5.6. CRP 2.2. PT did evaluate yesterday and plans to order pump compression devices. Wound culture shows group A strep so will hold Vancomycin. Awaiting sensitivities with gram negative bacteria. Continue Rocephin. Encourage ambulation. Will continue to evaluate daily, inappropriate yet for discharge as failed outpatient oral meds and is limited with options due to allergies.
[2020-03-12] MEDS: Vancomycin 1.75 GM in Sodium Chloride 0.9% 500 ML IV SCH (08:31)
[2020-03-12] MEDS: Acetaminophen/HYDROcodone 325-5 MG Tab PO PRN ×3 (12:23→22:33)
[2020-03-12] MEDS: Sodium Chloride 0.9% 1,000 ML IV SCH (15:24)
[2020-03-12] MEDS: cefTRIAXone 1 GM Vial IVPUSH SCH (15:29)
[2020-03-12] MEDS: ROPINIROLE 4 MG PO SCH (19:37)
[2020-03-12] MEDS: Simvastatin 20 MG Tab PO SCH (19:38)
[2020-03-12] MEDS: Gabapentin 300 MG Cap PO SCH (19:38)
[2020-03-12] MEDS ORDERED: VANCOMYCIN IV SCH (20:00)
[2020-03-12] MEDS ORDERED: [UNRECOGNIZED DRUG - OTHER] IV SCH (20:00)
[2020-03-12] MEDS: hydrOXYzine HCl 25 MG Tab PO PRN (22:33)
[2020-03-13] MEDS: Pantoprazole 40 MG Tab.CR PO SCH (06:41)
[2020-03-13] MEDS: Furosemide 40 MG/4 ML VIAL IVPUSH SCH ×2 (08:22→13:20)
[2020-03-13] MEDS: Ferrous Sulfate 324 MG Tab.EC PO SCH (08:22)
[2020-03-13] MEDS: Citalopram 10 MG Tab PO SCH (08:22)
[2020-03-13] MEDS: Aspirin 81 MG Tab.EC PO SCH (08:22)
[2020-03-13] MEDS: Enoxaparin 40 MG/0.4 ML Syringe SUBCUT SCH (08:22)
[2020-03-13] MEDS: Pregabalin 25 MG Cap PO SCH ×2 (08:22→19:39)
[2020-03-13] MEDS: Gabapentin 100 MG CAP PO SCH ×2 (08:24→14:00)
[2020-03-13] MEDS: ROPINIROLE 2 MG PO SCH ×2 (08:27→14:01)
[2020-03-13] MEDS: ESTRADIOL 1 MG PO SCH (08:28)
[2020-03-13] MEDS: cefTRIAXone 1 GM Vial IVPUSH SCH (13:20)
[2020-03-13] MEDS: Acetaminophen/HYDROcodone 325-5 MG Tab PO PRN ×2 (13:59→19:39)
[2020-03-13] MEDS: Gabapentin 300 MG Cap PO SCH (19:39)
[2020-03-13] MEDS: ROPINIROLE 4 MG PO SCH (19:40)
[2020-03-13] MEDS: Simvastatin 20 MG Tab PO SCH (19:40)
[2020-03-13] MEDS: hydrOXYzine HCl 25 MG Tab PO PRN (19:51)
--- NOTE | 2020-03-13 20:48 | PCM.PN ---
- General Info Date of Service: 03/13/20 Admission Dx/Problem (Free Text): Cellulitis bilateral lower extremities Functional Status: Reports: Pain Controlled, Tolerating Diet, Ambulating - Review of Systems General: Reports: Malaise. Denies: Fever, Weakness, Fatigue HEENT: Reports: No Symptoms Pulmonary: Reports: Cough. Denies: Shortness of Breath Cardiovascular: Reports: Edema. Denies: Chest Pain, Lightheadedness Gastrointestinal: Denies: Abdominal Pain, Nausea, Vomiting Genitourinary: Reports: No Symptoms Musculoskeletal: Reports: No Symptoms Skin: Reports: Other (laura color skin to legs) Neurological: Reports: No Symptoms - Patient Data Vitals - Most Recent: Last Vital Signs Temp 96.5 F L 03/13/20 20:00 Pulse 68 03/13/20 20:00 Resp 18 03/13/20 20:00 BP 141/72 H 03/13/20 20:00 Pulse Ox 96 03/13/20 20:00 Weight - Most Recent: 350 lb 6.4 oz Terry Results Last 24 Hours: Microbiology 03/10/20 13:00 Aerobic Blood Culture - Preliminary Blood - Venous NO GROWTH AFTER 3 DAYS Anaerobic Blood Culture - Preliminary NO GROWTH AFTER 3 DAYS 03/10/20 12:42 Aerobic Blood Culture - Preliminary Blood - Venous - Lab Draw NO GROWTH AFTER 3 DAYS Anaerobic Blood Culture - Preliminary NO GROWTH AFTER 3 DAYS Med Orders - Current: Current Medications Hydrocodone Bitart/Acetaminophen ([place] 325-5 Mg) 1 tab PO Q4H PRN PRN Reason: Pain (moderate 4-6) Last Admin: 03/13/20 19:39 Dose: 1 tab Documented by: Albuterol (Ventolin Hfa) 1 - 2 gm INH Q4H PRN PRN Reason: Shortness of Breath Albuterol/Ipratropium (Duoneb 3.0-0.5 Mg/3 Ml) 3 ml NEB Q4H PRN PRN Reason: Shortness of Breath Aspirin (Halfprin) 81 mg PO DAILY [facility] Last Admin: 03/13/20 08:22 Dose: 81 mg Documented by: Ceftriaxone Sodium (Rocephin) 1 gm IVPUSH Q24H [facility] Last Admin: 03/13/20 13:20 Dose: 1 gm Documented by: Citalopram Hydrobromide (Celexa) 20 mg PO DAILY [facility] Last Admin: 03/13/20 08:22 Dose: 20 mg Documented by: Enoxaparin Sodium (Lovenox) 40 mg SUBCUT DAILY [facility] Last Admin: 03/13/20 08:22 Dose: 40 mg Documented by: Estradiol (Estradiol) 1 mg PO DAILY [facility] Last Admin: 03/13/20 08:28 Dose: 1 mg Documented by: Ferrous Sulfate (Ferrous Sulfate) 324 mg PO DAILY [facility] Last Admin: 03/13/20 08:22 Dose: 324 mg Documented by: Furosemide (Lasix) 40 mg IVPUSH BID@0800,1400 [facility] Last Admin: 03/13/20 13:20 Dose: 40 mg Documented by: Gabapentin (Neurontin) 100 mg PO BID@0800,1500 [facility] Last Admin: 03/13/20 14:00 Dose: 100 mg Documented by: Gabapentin (Neurontin) 300 mg PO BEDTIME [facility] Last Admin: 03/13/20 19:39 Dose: 300 mg Documented by: Hydroxyzine HCl (Atarax) 50 mg PO Q8H PRN PRN Reason: Itching Last Admin: 03/13/20 19:51 Dose: 50 mg Documented by: Ibuprofen (Motrin) 600 mg PO Q6H PRN PRN Reason: Pain (moderate 4-6) Last Admin: 03/12/20 21:27 Dose: 600 mg Documented by: Morphine Sulfate (Morphine) 4 mg IVPUSH Q4H PRN PRN Reason: Pain (severe 7-10) Glucosamine/Chondroitn/C/Steve [ Glucosamine-Chondr Complex] 1 each PO DAILY [facility] Ropinirole 4 Mg Tab (Own Med) 0 mg PO BEDTIME [facility] Last Admin: 03/13/20 19:40 Dose: 4 mg Documented by: Ropinirole 2 Mg Tabs (Own Med) 0 each PO BID@0800,1400 [facility] Last Admin: 03/13/20 14:01 Dose: 2 each Documented by: Pantoprazole Sodium (Protonix) 40 mg PO DAILY@0700 [facility] Last Admin: 03/13/20 06:41 Dose: 40 mg Documented by: Pregabalin (Lyrica) 75 mg PO BID [facility] Last Admin: 03/13/20 19:39 Dose: 75 mg Documented by: Simvastatin (Zocor) 20 mg PO BEDTIME [facility] Last Admin: 03/13/20 19:40 Dose: 20 mg Documented by: Sodium Chloride (Saline Flush) 10 ml FLUSH ASDIRECTED PRN PRN Reason: Keep Vein Open Discontinued Medications Ceftriaxone Sodium (Rocephin) 2 gm IVPUSH ONETIME ONE Stop: 03/10/20 13:47 Last Admin: 03/10/20 13:54 Dose: 2 gm Documented by: Ceftriaxone Sodium (Rocephin) 1 gm IVPUSH Q24H [facility] Enoxaparin Sodium (Lovenox) 40 mg SUBCUT Q24H [facility] Last Admin: 03/11/20 08:15 Dose: 40 mg Documented by: Furosemide (Lasix) 40 mg IVPUSH Q12H [facility] Last Admin: 03/11/20 02:14 Dose: 40 mg Documented by: Gabapentin (Neurontin) 100 mg PO BID@0800,1500 [facility] Last Admin: 03/11/20 14:24 Dose: 100 mg Documented by: Gabapentin (Neurontin) 300 mg PO BEDTIME [facility] Last Admin: 03/11/20 19:22 Dose: 300 mg Documented by: Gabapentin (Neurontin) 300 mg PO BEDTIME [facility] Sodium Chloride (Normal Saline) 1,000 mls @ 75 mls/hr IV ASDIRECTED [facility] Last Admin: 03/10/20 12:46 Dose: 75 mls/hr Documented by: Sodium Chloride (Normal Saline) 1,000 mls @ 75 mls/hr IV ASDIRECTED [facility] Last Admin: 03/12/20 15:24 Dose: 75 mls/hr Documented by: Vancomycin HCl 1.75 gm/ Premix 350 mls @ 175 mls/hr IV Q12H [facility] Last Admin: 03/11/20 11:30 Dose: Not Given Documented by: Vancomycin HCl 1.75 gm/ Sodium (Chloride) 500 mls @ 250 mls/hr IV Q12H [facility] Last Admin: 03/11/20 11:58 Dose: 250 mls/hr Documented by: Vancomycin HCl 1.75 gm/ Sodium (Chloride) 500 mls @ 250 mls/hr IV BID [facility] Last Admin: 03/12/20 08:31 Dose: Not Given Documented by: Pregabalin 75 Mg (Caps Own Med) 0 each PO BID [facility] Last Admin: 03/11/20 19:23 Dose: 1 each Documented by: Ropinirole 2 Mg Tabs (Own Med) 0 each PO 0800,1200 [facility] Last Admin: 03/12/20 14:49 Dose: Not Given Documented by: Escitalopram 10 Mg * (*Own Med) 0 each PO 0800 [facility] Last Admin: 03/11/20 08:07 Dose: 1 each Documented by: Pantoprazole Sodium (Protonix) 40 mg PO DAILY [facility] Last Admin: 03/12/20 08:03 Dose: 40 mg Documented by: Simvastatin (Zocor) 20 mg PO BEDTIME [facility] Last Admin: 03/11/20 19:24 Dose: 20 mg Documented by: Vancomycin HCl (Pharmacy To Dose - Vancomycin) 0 dose .XX ASDIRECTED [facility] - Exam General: Alert, Oriented HEENT: Mucous Membr. Moist/[place] Neck: Supple Lungs: Clear to Auscultation, Normal Respiratory Effort Cardiovascular: Regular Rate, Regular Rhythm GI/Abdominal Exam: Normal Bowel Sounds, Soft, Non-Tender Extremities: Pedal Edema, Other (open areas to posterior left calf are much less excoriated, less drainage noted. Significant improvement in edema of legs as is elevating daily.) Skin: Warm, Dry Wound/Incisions: Healing Well, Erythema Improving Neurological: No New Focal Deficit Sepsis Event Note - Evaluation Sepsis Screening Result: No Definite Risk - Focused Exam Vital Signs: Vital Signs Temp Pulse Resp BP Pulse Ox 03/13/20 20:00 96.5 F L 68 18 141/72 H 96 03/13/20 16:00 97.7 F 72 18 136/62 97 03/13/20 12:00 97.2 F 84 18 114/52 L 97 Date Exam was Performed: 03/13/20 Time Exam was Performed: 20:41 - Problem List & Annotations (1) Cellulitis of both lower extremities SNOMED Code(s): 991288009 Code(s): L03.115 - CELLULITIS OF RIGHT LOWER LIMB; L03.116 - CELLULITIS OF LEFT LOWER LIMB Status: Acute Priority: High Current Visit: Yes - Problem List Review Problem List Initiated/Reviewed/Updated: Yes - Assessment Assessment:: Cellulitis of bilateral lower extremities. - Plan Plan:: Patient continues to have discomfort in LLE, especially with any manipulation of leg and dressing change. Does have moderate amount of serosanguinous drainage noted on the bandage. Excoriated, open lesions to posterior leg. Leg is warm to the touch, tender. Very red. No fevers. Labs remain stable, WBC is normal at 6.3. Will have PT look in to ordering pump compression devices that she can utilize at home for the edema in her legs. Add Vancomycin in addition to the Rocephin. Ambulate. Transfer to acute status. 03-12-2020 Patient's legs showing improvement. Has less swelling in both, less redness to left lower extremity and appears less excoriated. Continues to have open areas with drainage. RLE is much improved. Minimal open areas. Both legs are warm to the touch. Afebrile. WBC remains normal at 5.6. CRP 2.2. PT did evaluate yesterday and plans to order pump compression devices. Wound culture shows group A strep so will hold Vancomycin. Awaiting sensitivities with gram negative bacteria. Continue Rocephin. Encourage ambulation. Will continue to evaluate daily, inappropriate yet for discharge as failed outpatient oral meds and is limited with options due to allergies. 03-13-2020 Patient continues to have improvement of the edema and drainage of her lower legs. Left leg is much less excoriated with less drainage than on admit. Edema is much improved as has been elevating legs through stay. Appetite is good. Afebrile. wound culture did grow out A Baumanii Haemolyticus, sensitive to Rocephin. Will continue with IV Rocephin. Will plan for IV outpatient antibiotic therapy, likely discharge home tomorrow as she is showing improvement.
[2020-03-13] MEDS: Ibuprofen 200 MG Tab PO PRN (22:30)
[2020-03-14] MEDS: Furosemide 40 MG/4 ML VIAL IVPUSH SCH (08:01)
[2020-03-14] MEDS: Pantoprazole 40 MG Tab.CR PO SCH (08:01)
[2020-03-14] MEDS: Pregabalin 25 MG Cap PO SCH (08:01)
[2020-03-14] MEDS: Gabapentin 100 MG CAP PO SCH (08:01)
[2020-03-14] MEDS: Aspirin 81 MG Tab.EC PO SCH (08:01)
[2020-03-14] MEDS: Ferrous Sulfate 324 MG Tab.EC PO SCH (08:01)
[2020-03-14] MEDS: Citalopram 10 MG Tab PO SCH (08:01)
[2020-03-14] MEDS: ROPINIROLE 2 MG PO SCH (08:02)
[2020-03-14] MEDS: ESTRADIOL 1 MG PO SCH (08:02)
[2020-03-14] MEDS: Enoxaparin 40 MG/0.4 ML Syringe SUBCUT SCH (08:02)
[2020-03-14 08:52] VITALS: BP 132/55; PULSE 72
--- NOTE | 2020-03-14 09:15 | PCM.DCSUM1 ---
Discharge Summary - Hospital Course Free Text/Narrative:: Barbara is a 49 year old female who presented to ER with complaints of increased swelling, redness and discomfort to her lower legs Has chronic history of lymphedema in her legs, has had cellulitis multiple times. Was recently treated with Cephalexin but symptoms are worsening over the last 2 days. Admits left leg is worse than right. Does try to elevate legs at home but has not seen improvement. She denied fever. Does have a fair amount of discomfort. Does apply wraps to her legs at home due to all the drainage. Culture taken of wounds, labs all essentially normal with CRP being mildly high. Admitted for observation for IV antibiotics and wound care. Diagnosis: Stroke: No Modified Sperry Scale: No Symptoms at All Modified Sperry Scale Score: 0 - Discharge Data Discharge Date: 03/14/20 Discharge Disposition: Home, Self-Care 01 Condition: Fair - Referral to Home Health Primary Care Physician: TONY Ferris - Discharge Diagnosis/Problem(s) (1) Cellulitis of both lower extremities SNOMED Code(s): 343347796 ICD Code: L03.115 - CELLULITIS OF RIGHT LOWER LIMB; L03.116 - CELLULITIS OF LEFT LOWER LIMB Status: Acute Priority: High - Patient Summary/Data Complications: none Consults: Consultations 03/11/20 09:36 PT Evaluation and Treatment [CONS] Routine Hospital Course: Patient is showing improvement. Legs are less swollen in the am and if she is compliant with being in bed. Does like to sit in the recliner with her legs down and then develops more edema and pressure to her legs. Drainage and excoriation of open sores has improved. We did initially add Vancomycin for gram positive coverage but final culture received showed a gram positive strep and A Baumannii/Haemolyticus sensitive to Rocephin so Vanco was stopped. Physical therapy was ordered for pump compression stockings but they are unable to provide this care and patient would need to acquire these with wound care. Labs have remained normal. Is ambulating and tolerating dressing changes much better now. Patient will return daily for IV Rocephin for the next 5 days. Follow up with Ariane in clinic. - Patient Instructions Diet: Usual Diet as Tolerated Activity: As Tolerated - Discharge Plan *PRESCRIPTION DRUG MONITORING PROGRAM REVIEWED*: Not Applicable *COPY OF PRESCRIPTION DRUG MONITORING REPORT IN PATIENT NATA: Not Applicable Home Medications: Home Meds Albuterol [IJD: Ventolin HFA] 1 - 2 puff INH Q4H PRN 01/14/16 [History] Albuterol/Ipratropium [DuoNeb 3.0-0.5 MG/3 ML] 3 ml NEB Q4HRRT PRN 01/14/16 [History] Aspirin [Halfprin] 81 mg PO DAILY 01/14/16 [History] Furosemide [Lasix] 40 mg PO BID 01/14/16 [History] Simvastatin 20 mg PO BEDTIME 01/14/16 [History] estradioL [Estradiol] 1 mg PO DAILY 01/14/16 [History] rOPINIRole HCl [Ropinirole HCl] 4 mg PO BEDTIME 01/14/16 [History] Ferrous Sulfate [Iron] 325 mg PO DAILY 01/23/16 [History] Pantoprazole Sodium 40 mg PO DAILY 01/23/16 [History] Glucosamine/Chondroitn/C/Steve [Glucosamine-Chondr Complex] 1 each PO DAILY 02/16/19 [History] Pregabalin [Lyrica] 75 mg PO BID 02/16/19 [History] Escitalopram [Lexapro] 10 mg PO DAILY 03/10/20 [History] Gabapentin [Neurontin] 100 mg PO ASDIRECTED 03/10/20 [History] hydrOXYzine HCL [Hydroxyzine HCl] 50 mg PO TID PRN 03/10/20 [History] rOPINIRole [Requip] 0.5 tab PO ASDIRECTED 03/10/20 [History] Forms: ED Department Discharge Referrals: Apple Mae PA [Primary Care Provider] - (Hospital follow up in one week with ariane) - Discharge Summary/Plan Comment DC Time >30 min.: No - General Info Date of Service: 03/14/20 Admission Dx/Problem (Free Text: Cellulitis bilateral lower extremities Functional Status: Reports: Pain Controlled, Tolerating Diet, Ambulating - Review of Systems General: Reports: Malaise. Denies: Fever, Weakness, Fatigue HEENT: Reports: No Symptoms Pulmonary: Reports: Cough. Denies: Shortness of Breath Cardiovascular: Reports: Edema. Denies: Chest Pain, Lightheadedness Gastrointestinal: Denies: Abdominal Pain, Nausea, Vomiting Genitourinary: Reports: No Symptoms Musculoskeletal: Reports: No Symptoms Skin: Reports: Other (redness, drainage from legs.) Neurological: Reports: No Symptoms - Patient Data Vitals - Most Recent: Last Vital Signs Temp 98.1 F 03/14/20 08:00 Pulse 72 03/14/20 08:00 Resp 18 03/14/20 08:00 BP 132/55 L 03/14/20 08:00 Pulse Ox 97 03/14/20 08:00 Weight - Most Recent: 350 lb 6.4 oz GAYLA Results - Last 24 hrs: Microbiology 03/10/20 13:00 Aerobic Blood Culture - Preliminary Blood - Venous NO GROWTH AFTER 3 DAYS Anaerobic Blood Culture - Preliminary NO GROWTH AFTER 3 DAYS 03/10/20 12:42 Aerobic Blood Culture - Preliminary Blood - Venous - Lab Draw NO GROWTH AFTER 3 DAYS Anaerobic Blood Culture - Preliminary NO GROWTH AFTER 3 DAYS Med Orders - Current: Current Medications Hydrocodone Bitart/Acetaminophen (Leblanc 325-5 Mg) 1 tab PO Q4H PRN PRN Reason: Pain (moderate 4-6) Last Admin: 03/13/20 19:39 Dose: 1 tab Documented by: Albuterol (Ventolin Hfa) 1 - 2 gm INH Q4H PRN PRN Reason: Shortness of Breath Albuterol/Ipratropium (Duoneb 3.0-0.5 Mg/3 Ml) 3 ml NEB Q4H PRN PRN Reason: Shortness of Breath Aspirin (Halfprin) 81 mg PO DAILY [facility] Last Admin: 03/14/20 08:01 Dose: 81 mg Documented by: Ceftriaxone Sodium (Rocephin) 1 gm IVPUSH Q24H [facility] Last Admin: 03/13/20 13:20 Dose: 1 gm Documented by: Citalopram Hydrobromide (Celexa) 20 mg PO DAILY [facility] Last Admin: 03/14/20 08:01 Dose: 20 mg Documented by: Enoxaparin Sodium (Lovenox) 40 mg SUBCUT DAILY [facility] Last Admin: 03/14/20 08:02 Dose: 40 mg Documented by: Estradiol (Estradiol) 1 mg PO DAILY [facility] Last Admin: 03/14/20 08:02 Dose: 1 mg Documented by: Ferrous Sulfate (Ferrous Sulfate) 324 mg PO DAILY [facility] Last Admin: 03/14/20 08:01 Dose: 324 mg Documented by: Furosemide (Lasix) 40 mg IVPUSH BID@0800,1400 [facility] Last Admin: 03/14/20 08:01 Dose: 40 mg Documented by: Gabapentin (Neurontin) 100 mg PO BID@0800,1500 [facility] Last Admin: 03/14/20 08:01 Dose: 100 mg Documented by: Gabapentin (Neurontin) 300 mg PO BEDTIME [facility] Last Admin: 03/13/20 19:39 Dose: 300 mg Documented by: Hydroxyzine HCl (Atarax) 50 mg PO Q8H PRN PRN Reason: Itching Last Admin: 03/13/20 19:51 Dose: 50 mg Documented by: Ibuprofen (Motrin) 600 mg PO Q6H PRN PRN Reason: Pain (moderate 4-6) Last Admin: 03/13/20 22:30 Dose: 600 mg Documented by: Morphine Sulfate (Morphine) 4 mg IVPUSH Q4H PRN PRN Reason: Pain (severe 7-10) Glucosamine/Chondroitn/C/Steve [ Glucosamine-Chondr Complex] 1 each PO DAILY [facility] Ropinirole 4 Mg Tab (Own Med) 0 mg PO BEDTIME [facility] Last Admin: 03/13/20 19:40 Dose: 4 mg Documented by: Ropinirole 2 Mg Tabs (Own Med) 0 each PO BID@0800,1400 [facility] Last Admin: 03/14/20 08:02 Dose: 2 each Documented by: Pantoprazole Sodium (Protonix) 40 mg PO DAILY@0700 [facility] Last Admin: 03/14/20 08:01 Dose: 40 mg Documented by: Pregabalin (Lyrica) 75 mg PO BID [facility] Last Admin: 03/14/20 08:01 Dose: 75 mg Documented by: Simvastatin (Zocor) 20 mg PO BEDTIME [facility] Last Admin: 03/13/20 19:40 Dose: 20 mg Documented by: Sodium Chloride (Saline Flush) 10 ml FLUSH ASDIRECTED PRN PRN Reason: Keep Vein Open Discontinued Medications Ceftriaxone Sodium (Rocephin) 2 gm IVPUSH ONETIME ONE Stop: 03/10/20 13:47 Last Admin: 03/10/20 13:54 Dose: 2 gm Documented by: Ceftriaxone Sodium (Rocephin) 1 gm IVPUSH Q24H [facility] Enoxaparin Sodium (Lovenox) 40 mg SUBCUT Q24H [facility] Last Admin: 03/11/20 08:15 Dose: 40 mg Documented by: Furosemide (Lasix) 40 mg IVPUSH Q12H [facility] Last Admin: 03/11/20 02:14 Dose: 40 mg Documented by: Gabapentin (Neurontin) 100 mg PO BID@0800,1500 [facility] Last Admin: 03/11/20 14:24 Dose: 100 mg Documented by: Gabapentin (Neurontin) 300 mg PO BEDTIME [facility] Last Admin: 03/11/20 19:22 Dose: 300 mg Documented by: Gabapentin (Neurontin) 300 mg PO BEDTIME [facility] Sodium Chloride (Normal Saline) 1,000 mls @ 75 mls/hr IV ASDIRECTED [facility] Last Admin: 03/10/20 12:46 Dose: 75 mls/hr Documented by: Sodium Chloride (Normal Saline) 1,000 mls @ 75 mls/hr IV ASDIRECTED [facility] Last Admin: 03/12/20 15:24 Dose: 75 mls/hr Documented by: Vancomycin HCl 1.75 gm/ Premix 350 mls @ 175 mls/hr IV Q12H [facility] Last Admin: 03/11/20 11:30 Dose: Not Given Documented by: Vancomycin HCl 1.75 gm/ Sodium (Chloride) 500 mls @ 250 mls/hr IV Q12H [facility] Last Admin: 03/11/20 11:58 Dose: 250 mls/hr Documented by: Vancomycin HCl 1.75 gm/ Sodium (Chloride) 500 mls @ 250 mls/hr IV BID [facility] Last Admin: 03/12/20 08:31 Dose: Not Given Documented by: Pregabalin 75 Mg (Caps Own Med) 0 each PO BID [facility] Last Admin: 03/11/20 19:23 Dose: 1 each Documented by: Ropinirole 2 Mg Tabs (Own Med) 0 each PO 0800,1200 [facility] Last Admin: 03/12/20 14:49 Dose: Not Given Documented by: Escitalopram 10 Mg * (*Own Med) 0 each PO 0800 [facility] Last Admin: 03/11/20 08:07 Dose: 1 each Documented by: Pantoprazole Sodium (Protonix) 40 mg PO DAILY [facility] Last Admin: 03/12/20 08:03 Dose: 40 mg Documented by: Simvastatin (Zocor) 20 mg PO BEDTIME [facility] Last Admin: 03/11/20 19:24 Dose: 20 mg Documented by: Vancomycin HCl (Pharmacy To Dose - Vancomycin) 0 dose .XX ASDIRECTED [facility] - Exam General: Reports: Alert, Oriented HEENT: Reports: Mucous Membr. Moist/[place] Neck: Reports: Supple Lungs: Reports: Clear to Auscultation, Normal Respiratory Effort Cardiovascular: Reports: Regular Rate, Regular Rhythm GI/Abdominal Exam: Normal Bowel Sounds, Soft, Non-Tender Wound/Incisions: Reports: Erythema Improving, Other (less drainage and excoriation to posterior lower legs.) Neurological: Reports: No New Focal Deficit
[2020-03-14] MEDS ORDERED: cefTRIAXone 1 GM Vial IVPUSH ONE (10:27)
== END 2020-03-14 12:10 | disposition home or self-care (01) | DRG 603 ==
LOC: CC.ED 12:06 → CC.MS 13:37 → UNDOADMOB 13:46 → CC.MS 13:46 → OBSVTOIN 03-11 10:30
PROVIDERS: ADMIT Nurse Practitioner; ATTEND Family Medicine
DX: L03.115 Cellulitis of right lower limb (principal); L03.116 Cellulitis of left lower limb; I89.0 Lymphedema, not elsewhere classified; B95.0 Streptococcus, group A, as the cause of diseases classified elsewhere; B96.89 Other specified bacterial agents as the cause of diseases classified elsewhere; Z88.1 Allergy status to other antibiotic agents; Z88.0 Allergy status to penicillin; Z88.2 Allergy status to sulfonamides; Z91.040 Latex allergy status; Z91.013 Allergy to seafood; Z91.018 Allergy to other foods; Z79.82 Long term (current) use of aspirin; Z79.899 Other long term (current) drug therapy
CPT/HCPCS: 36415; 80048; 80053; 81003; 83605; 83735; 85025; 86140; 87040; 87070; 87077; 87186; 96361; 96372; 96374; 99284-25; A9270-GY; G0378; J0696; J1650; J1940; J3370; J7030; J7040

== ENCOUNTER 2020-06-01 19:49 | Inpatient (IN) | payer OTHER ==
--- NOTE | 2020-06-01 20:36 | EDM.PDOC ---
ED HPI GENERAL MEDICAL PROBLEM - General Chief Complaint: General Stated Complaint: Leg Redness Time Seen by Provider: 06/01/20 20:00 Source of Information: Reports: Patient History Limitations: Reports: No Limitations - History of Present Illness INITIAL COMMENTS - FREE TEXT/NARRATIVE: Patient presents to ER with complaints of increased left leg redness and swelling. Has chronic venous stasis, lymphedema in her legs. Has to use xeroform gauze and thick pads as drain continuously every day. Does try to elevate her legs when able but has persistent swelling that is not ever controlled. Has had frequent issues with cellulitis in her legs. Hospitalized several times for this. Has noted mild increased redness in her left leg over the last few days but tonight was much worse. Now notes the redness has extended up her thigh and it has not ever done that before. Legs feels very warm, tight and sore. She had a fever on , was 101.9. Is currently in quarantine as her is on day 6 of Covid 19+. She denies any cough. No shortness of breath, chest congestion. Has had a headache. No loss of appetite or loss of taste or smell. Onset: Gradual Duration: Day(s): Location: Reports: Lower Extremity, Left Quality: Reports: Ache, Dull Severity: Moderate Associated Symptoms: Reports: Fever/Chills, Headaches. Denies: Confusion, Chest Pain, Cough, Loss of Appetite, Nausea/Vomiting, Shortness of Breath, Syncope, Weakness Treatments SERVICE ORDER CLERK: Reports: Acetaminophen l leg Pain Score (Numeric/FACES): 6 - Related Data Allergies Allergy/AdvReac Type Severity Reaction Status Date / Time azithromycin [From Zithromax] Allergy Intermediate Diarrhea Verified 06/01/20 20:06 Penicillins Allergy Intermediate Hives Verified 06/01/20 20:06 strawberry Allergy Intermediate Mouth Sores Verified 06/01/20 20:06 Sulfa (Sulfonamide Allergy Intermediate Hives Verified 06/01/20 20:06 Antibiotics) calamine Allergy Blisters Verified 06/01/20 20:06 clindamycin Allergy Rash Verified 06/01/20 20:06 latex Allergy Blisters Verified 06/01/20 20:06 shellfish Allergy Severe Anaphylactic Uncoded 06/01/20 20:06 Shock nuts Allergy Intermediate Mouth Sores Uncoded 06/01/20 20:06 Home Meds: Home Meds Albuterol [IJD: Ventolin HFA] 1 - 2 puff INH Q4H PRN 01/14/16 [History] Albuterol/Ipratropium [DuoNeb 3.0-0.5 MG/3 ML] 3 ml NEB Q4HRRT PRN 01/14/16 [History] Aspirin [Halfprin] 81 mg PO DAILY 01/14/16 [History] Furosemide [Lasix] 40 mg PO BID 01/14/16 [History] Simvastatin 20 mg PO BEDTIME 01/14/16 [History] estradioL [Estradiol] 1 mg PO DAILY 01/14/16 [History] rOPINIRole HCl [Ropinirole HCl] 4 mg PO BEDTIME 01/14/16 [History] Ferrous Sulfate [Iron] 325 mg PO DAILY 01/23/16 [History] Pantoprazole Sodium 40 mg PO DAILY 01/23/16 [History] Glucosamine/Chondroitn/C/Steve [Glucosamine-Chondr Complex] 1 each PO DAILY 02/16/19 [History] Pregabalin [Lyrica] 75 mg PO BID 02/16/19 [History] Escitalopram [Lexapro] 10 mg PO DAILY 03/10/20 [History] Gabapentin [Neurontin] 100 mg PO ASDIRECTED 03/10/20 [History] hydrOXYzine HCL [Hydroxyzine HCl] 50 mg PO TID PRN 03/10/20 [History] rOPINIRole [Requip] 0.5 tab PO ASDIRECTED 03/10/20 [History] Past Medical History Respiratory History: Reports: Asthma - Infectious Disease History Infectious Disease History: Reports: None - Past Surgical History HEENT Surgical History: Reports: Eye Surgery Female Surgical History: Reports: D&C, Hysterectomy Musculoskeletal Surgical History: Reports: Arthroscopic Knee Social & Family History - Family History Family Medical History: Noncontributory - Tobacco Use Smoking Status *Q: Never Smoker Second Hand Smoke Exposure: No - Caffeine Use Caffeine Use: Reports: Soda Other Caffeine Use: occasional - Recreational Drug Use Recreational Drug Use: No ED ROS GENERAL - Review of Systems Review Of Systems: See Below Constitutional: Reports: Fever, Malaise, Fatigue. Denies: Chills, Weakness, Decreased Appetite HEENT: Denies: Ear Pain, Rhinitis, Sinus Problem, Throat Pain, Vertigo Respiratory: Denies: Shortness of Breath, Cough Cardiovascular: Reports: Edema. Denies: Chest Pain, Lightheadedness Endocrine: Reports: Fatigue GI/Abdominal: Denies: Abdominal Pain, Nausea, Vomiting : Reports: No Symptoms Musculoskeletal: Reports: Leg Pain Skin: Reports: Erythema Neurological: Reports: Headache Psychiatric: Reports: No Symptoms ED EXAM, GENERAL - Physical Exam Exam: See Below Exam Limited By: No Limitations General Appearance: Alert, WD/WN, No Apparent Distress Ears: Normal External Exam, Normal TMs Nose: Normal Inspection, Normal Mucosa, No Blood Throat/Mouth: Normal Inspection, Normal Oropharynx Head: Normocephalic Neck: Normal Inspection, Supple, Non-Tender Respiratory/Chest: No Respiratory Distress, Lungs Clear, Normal Breath Sounds Cardiovascular: Regular Rate, Rhythm GI/Abdominal: Normal Bowel Sounds, Soft, Non-Tender Neurological: Alert, Oriented Skin Exam: Erythema, Increased Warmth, Other (Left leg is red, swollen and has multiple open areas draining serous fluid. Very warm. Redness extends up to the mid thigh. Skin marking placed. ) Course - Vital Signs Last Recorded V/S: Last Vital Signs Temp 97.9 F 06/01/20 19:56 Pulse 92 06/01/20 19:56 Resp 16 06/01/20 19:56 BP 141/71 H 06/01/20 19:56 Pulse Ox 98 06/01/20 19:56 - Orders/Labs/Meds Orders: Active Orders 24 hr Category Date Time Status C-REACTIVE PROTEIN [CHEM] Stat Lab 06/01/20 20:05 Received CULTURE BLOOD [BC] Stat Lab 06/01/20 20:05 Received CULTURE BLOOD [BC] Stat Lab 06/01/20 20:15 Received Blood Culture x2 Reflex Set [OM.PC] Stat Oth 06/01/20 19:31 Ordered Labs: Laboratory Tests 06/01/20 06/01/20 06/01/20 Range/Units 20:05 20:05 20:05 WBC 10.5 H (5.0-10.0) 10^3/uL RBC 4.39 (4.00-5.50) 10^6/uL Hgb 13.5 (12.0-16.0) g/dL Hct 40.1 (37.0-47.0) % MCV 91.3 (82.0-94.0) fL MCH 30.8 (27.0-32.0) pg MCHC 33.7 (33.0-38.0) g/dL RDW Coeff of Debi 13.2 (11.0-15.0) % Plt Count 232 (150-400) 10^3/uL Neut % (Auto) 68.6 (35-85) % Lymph % (Auto) 18.9 (10-55) % Garvin % (Auto) 6.3 (0-16) % Eos % (Auto) 6.1 H (0-5) % Baso % (Auto) 0.1 (0-3) % Neut # (Auto) 7.20 H (1.80-7.00) 10^3/uL Lymph # (Auto) 1.98 (1.00-4.80) 10^3/uL Garvin # (Auto) 0.66 (0.00-0.80) 10^3/uL Eos # (Auto) 0.64 H (0.00-0.45) 10^3/uL Baso # (Auto) 0.01 10^3/uL Sodium 141 (136-145) mEq/L Potassium 3.2 L (3.5-5.0) mEq/L Chloride 104 (98-106) mEq/L Carbon Dioxide 24 (21-32) mmol/L BUN 22 H (7-18) mg/dL Creatinine 1.2 H (0.6-1.0) mg/dL Est Cr Clr Drug Dosing 58.61 mL/min Estimated GFR (MDRD) 48 L (>=60) mL/min Glucose 135 H (75-99) mg/dL Lactic Acid 1.6 (0.4-2.0) mmol/L Calcium 8.1 L (8.4-10.1) mg/dL Magnesium 2.1 (1.8-2.4) mg/dL Total Bilirubin 0.3 (0.0-1.0) mg/dL AST 23 (15-37) U/L ALT 31 (12-78) U/L Alkaline Phosphatase 103 (46-116) U/L Total Protein 6.2 L (6.4-8.2) g/dL Albumin 2.4 L (3.4-5.0) g/dL SARS CoV-2 RNA Rapid KAROL (NEGATIVE) 06/01/20 Range/Units 20:35 WBC (5.0-10.0) 10^3/uL RBC (4.00-5.50) 10^6/uL Hgb (12.0-16.0) g/dL Hct (37.0-47.0) % MCV (82.0-94.0) fL MCH (27.0-32.0) pg MCHC (33.0-38.0) g/dL RDW Coeff of Debi (11.0-15.0) % Plt Count (150-400) 10^3/uL Neut % (Auto) (35-85) % Lymph % (Auto) (10-55) % Garvin % (Auto) (0-16) % Eos % (Auto) (0-5) % Baso % (Auto) (0-3) % Neut # (Auto) (1.80-7.00) 10^3/uL Lymph # (Auto) (1.00-4.80) 10^3/uL Garvin # (Auto) (0.00-0.80) 10^3/uL Eos # (Auto) (0.00-0.45) 10^3/uL Baso # (Auto) 10^3/uL Sodium (136-145) mEq/L Potassium (3.5-5.0) mEq/L Chloride (98-106) mEq/L Carbon Dioxide (21-32) mmol/L BUN (7-18) mg/dL Creatinine (0.6-1.0) mg/dL Est Cr Clr Drug Dosing mL/min Estimated GFR (MDRD) (>=60) mL/min Glucose (75-99) mg/dL Lactic Acid (0.4-2.0) mmol/L Calcium (8.4-10.1) mg/dL Magnesium (1.8-2.4) mg/dL Total Bilirubin (0.0-1.0) mg/dL AST (15-37) U/L ALT (12-78) U/L Alkaline Phosphatase (46-116) U/L Total Protein (6.4-8.2) g/dL Albumin (3.4-5.0) g/dL SARS CoV-2 RNA Rapid KAROL Negative (NEGATIVE) - Re-Assessments/Exams Free Text/Narrative Re-Assessment/Exam: 06/01/20 21:03 Labs reviewed. WBC mildly elevated at 10.5. Potassium 3.2. Creatinine 1.2. Covid test negative. Did contact [facility] call and spoke with Dr. Li in regards to any specific precautions needed if patient in quarantine. As her is on day 6 and she tested negative, does not feel any special precautions are needed while here. Departure - Departure Time of Disposition: 21:05 Disposition: Admitted As Inpatient 65 Condition: Fair Clinical Impression: Cellulitis of left leg - Discharge Information *PRESCRIPTION DRUG MONITORING PROGRAM REVIEWED*: No *COPY OF PRESCRIPTION DRUG MONITORING REPORT IN PATIENT NATA: No Forms: ED Department Discharge Sepsis Event Note (ED) - Evaluation Sepsis Screening Result: No Definite Risk - Focused Exam Vital Signs: Vital Signs Temp Pulse Resp BP Pulse Ox 06/01/20 19:56 97.9 F 92 16 141/71 H 98 - Problem List & Annotations (1) Cellulitis of left leg SNOMED Code(s): 325692899 Code(s): L03.116 - CELLULITIS OF LEFT LOWER LIMB Status: Acute Priority: High Current Visit: Yes (2) Chronic acquired lymphedema SNOMED Code(s): 82542091 Code(s): I89.0 - LYMPHEDEMA, NOT ELSEWHERE CLASSIFIED Status: Acute Priority: High Current Visit: Yes - Problem List Review Problem List Initiated/Reviewed/Updated: Yes - My Orders Last 24 Hours: My Active Orders 06/01/20 19:31 Blood Culture x2 Reflex Set [OM.PC] Stat 06/01/20 20:05 C-REACTIVE PROTEIN [CHEM] Stat CULTURE BLOOD [BC] Stat 06/01/20 20:15 CULTURE BLOOD [BC] Stat - Assessment/Plan Admission H&P: Please use this note as an admission H&P Last 24 Hours: My Active Orders 06/01/20 19:31 Blood Culture x2 Reflex Set [OM.PC] Stat 06/01/20 20:05 C-REACTIVE PROTEIN [CHEM] Stat CULTURE BLOOD [BC] Stat 06/01/20 20:15 CULTURE BLOOD [BC] Stat Assessment:: Cellulitis of LLE Plan: Admit inpatient. Start IV lasix to help control edema in legs. Elevate. As she was sensitive to cephalosporins with admission 3 months ago, will start Rocephin 2 gm IV daily. If needed, will consider adding Vancomycin. Culture obtained. Repeat labs in am. Change bandages as needed.
[2020-06-01] MEDS ORDERED: hydrOXYzine HCl 25 MG Tab PO PRN (21:16)
[2020-06-01] MEDS ORDERED: Albuterol 8 GM Inhaler INH PRN (21:16)
[2020-06-01] MEDS ORDERED: Albuterol/Ipratropium 3.0-0.5 MG/3 ML Neb Soln NEB PRN (21:16)
[2020-06-01] MEDS ORDERED: Ondansetron 4 MG Tab.DIS PO PRN (21:22)
[2020-06-01] MEDS ORDERED: Sodium Chloride 0.9% 10 ML Syringe FLUSH PRN (21:22)
[2020-06-01] MEDS ORDERED: Temazepam 15 MG Cap PO PRN (21:22)
[2020-06-01] MEDS ORDERED: ROPINIROLE PO SCH (21:30)
[2020-06-01] MEDS: Enoxaparin 40 MG/0.4 ML Syringe SUBCUT SCH (22:07)
[2020-06-01] MEDS: cefTRIAXone 2 GM Vial IVPUSH SCH (22:07)
[2020-06-01] MEDS: rOPINIRole 1 MG Tab PO SCH (22:39)
[2020-06-01] MEDS: Pregabalin 25 MG Cap PO SCH (22:41)
[2020-06-01] MEDS: Simvastatin 20 MG Tab PO SCH (22:42)
[2020-06-01] MEDS: Gabapentin 300 MG Cap PO SCH (22:44)
[2020-06-02] MEDS: Acetaminophen 325 MG Tab PO PRN ×3 (04:07→21:27)
[2020-06-02 07:51] LABS: CHLORIDE,CL 104 mEq/L (98-106); SODIUM,NA 135 mEq/L (136-145)
[2020-06-02] MEDS ORDERED: Pregabalin 25 MG Cap PO SCH (08:00)
[2020-06-02] MEDS: Estradiol 1 MG Tab PO SCH (08:01)
[2020-06-02] MEDS: Pregabalin 25 MG Cap PO SCH ×2 (08:02→19:42)
[2020-06-02] MEDS: Aspirin 81 MG Tab.EC PO SCH (08:02)
[2020-06-02] MEDS: Citalopram 10 MG Tab PO SCH (08:03)
[2020-06-02] MEDS: rOPINIRole 1 MG Tab PO SCH ×3 (08:03→19:43)
[2020-06-02] MEDS: Pantoprazole 40 MG Tab.CR PO SCH (08:03)
[2020-06-02] MEDS: Gabapentin 100 MG Cap PO SCH ×2 (08:04→15:40)
[2020-06-02] MEDS: Ferrous Sulfate 324 MG Tab.EC PO SCH (08:04)
--- NOTE | 2020-06-02 11:07 | PCM.PN ---
- General Info Date of Service: 06/02/20 Admission Dx/Problem (Free Text): Cellulitis of LLE Functional Status: Reports: Pain Controlled, Tolerating Diet, Ambulating - Review of Systems General: Reports: Fever, Weakness, Fatigue, Malaise HEENT: Reports: Ear Pain, Headaches, Sinus Congestion, Rhinitis Pulmonary: Denies: Shortness of Breath, Cough Cardiovascular: Reports: Edema. Denies: Chest Pain, Lightheadedness Gastrointestinal: Denies: Abdominal Pain, Nausea, Vomiting Genitourinary: Reports: Other (hesitancy) Musculoskeletal: Reports: Leg Pain Skin: Reports: Other (redness and warmth to left leg) Neurological: Reports: Headache, Weakness - Patient Data Vitals - Most Recent: Last Vital Signs Temp 99.3 F 06/02/20 08:00 Pulse 98 06/02/20 08:00 Resp 18 06/02/20 08:00 BP 142/76 H 06/02/20 08:00 Pulse Ox 98 06/02/20 08:00 Weight - Most Recent: 352 lb I&O - Last 24 Hours: Intake & Output 06/01/20 06/02/20 06/02/20 22:59 06:59 14:59 Intake Total 800 Output Total 400 Balance 400 Lab Results Last 24 Hours: Laboratory Results - last 24 hr 06/01/20 06/01/20 06/01/20 Range/Units 20:05 20:05 20:05 WBC 10.5 H (5.0-10.0) 10^3/uL RBC 4.39 (4.00-5.50) 10^6/uL Hgb 13.5 (12.0-16.0) g/dL Hct 40.1 (37.0-47.0) % MCV 91.3 (82.0-94.0) fL MCH 30.8 (27.0-32.0) pg MCHC 33.7 (33.0-38.0) g/dL RDW Coeff of Debi 13.2 (11.0-15.0) % Plt Count 232 (150-400) 10^3/uL Neut % (Auto) 68.6 (35-85) % Lymph % (Auto) 18.9 (10-55) % [place] % (Auto) 6.3 (0-16) % Eos % (Auto) 6.1 H (0-5) % Baso % (Auto) 0.1 (0-3) % Neut # (Auto) 7.20 H (1.80-7.00) 10^3/uL Lymph # (Auto) 1.98 (1.00-4.80) 10^3/uL [place] # (Auto) 0.66 (0.00-0.80) 10^3/uL Eos # (Auto) 0.64 H (0.00-0.45) 10^3/uL Baso # (Auto) 0.01 10^3/uL Sodium 141 (136-145) mEq/L Potassium 3.2 L (3.5-5.0) mEq/L Chloride 104 (98-106) mEq/L Carbon Dioxide 24 (21-32) mmol/L BUN 22 H (7-18) mg/dL Creatinine 1.2 H (0.6-1.0) mg/dL Est Cr Clr Drug Dosing 58.61 mL/min Estimated GFR (MDRD) 48 L (>=60) mL/min Glucose 135 H (75-99) mg/dL Lactic Acid 1.6 (0.4-2.0) mmol/L Calcium 8.1 L (8.4-10.1) mg/dL Magnesium 2.1 (1.8-2.4) mg/dL Total Bilirubin 0.3 (0.0-1.0) mg/dL AST 23 (15-37) U/L ALT 31 (12-78) U/L Alkaline Phosphatase 103 (46-116) U/L C-Reactive Protein (0.2-0.8) mg/dL Total Protein 6.2 L (6.4-8.2) g/dL Albumin 2.4 L (3.4-5.0) g/dL SARS CoV-2 RNA Rapid KAROL (NEGATIVE) 06/01/20 06/01/20 06/02/20 Range/Units 20:05 20:35 07:25 WBC 9.2 (5.0-10.0) 10^3/uL RBC 4.21 (4.00-5.50) 10^6/uL Hgb 12.8 (12.0-16.0) g/dL Hct 38.3 (37.0-47.0) % MCV 91.0 (82.0-94.0) fL MCH 30.4 (27.0-32.0) pg MCHC 33.4 (33.0-38.0) g/dL RDW Coeff of Debi 13.1 (11.0-15.0) % Plt Count 213 (150-400) 10^3/uL Neut % (Auto) 74.2 (35-85) % Lymph % (Auto) 14.5 (10-55) % Dillon % (Auto) 6.9 (0-16) % Eos % (Auto) 4.2 (0-5) % Baso % (Auto) 0.2 (0-3) % Neut # (Auto) 6.83 (1.80-7.00) 10^3/uL Lymph # (Auto) 1.34 (1.00-4.80) 10^3/uL Dillon # (Auto) 0.64 (0.00-0.80) 10^3/uL Eos # (Auto) 0.39 (0.00-0.45) 10^3/uL Baso # (Auto) 0.02 10^3/uL Sodium (136-145) mEq/L Potassium (3.5-5.0) mEq/L Chloride (98-106) mEq/L Carbon Dioxide (21-32) mmol/L BUN (7-18) mg/dL Creatinine (0.6-1.0) mg/dL Est Cr Clr Drug Dosing mL/min Estimated GFR (MDRD) (>=60) mL/min Glucose (75-99) mg/dL Lactic Acid (0.4-2.0) mmol/L Calcium (8.4-10.1) mg/dL Magnesium (1.8-2.4) mg/dL Total Bilirubin (0.0-1.0) mg/dL AST (15-37) U/L ALT (12-78) U/L Alkaline Phosphatase (46-116) U/L C-Reactive Protein 20.9 H (0.2-0.8) mg/dL Total Protein (6.4-8.2) g/dL Albumin (3.4-5.0) g/dL SARS CoV-2 RNA Rapid KAROL Negative (NEGATIVE) 06/02/20 Range/Units 07:25 WBC (5.0-10.0) 10^3/uL RBC (4.00-5.50) 10^6/uL Hgb (12.0-16.0) g/dL Hct (37.0-47.0) % MCV (82.0-94.0) fL MCH (27.0-32.0) pg MCHC (33.0-38.0) g/dL RDW Coeff of Debi (11.0-15.0) % Plt Count (150-400) 10^3/uL Neut % (Auto) (35-85) % Lymph % (Auto) (10-55) % Dillon % (Auto) (0-16) % Eos % (Auto) (0-5) % Baso % (Auto) (0-3) % Neut # (Auto) (1.80-7.00) 10^3/uL Lymph # (Auto) (1.00-4.80) 10^3/uL Dillon # (Auto) (0.00-0.80) 10^3/uL Eos # (Auto) (0.00-0.45) 10^3/uL Baso # (Auto) 10^3/uL Sodium 135 L (136-145) mEq/L Potassium 3.6 (3.5-5.0) mEq/L Chloride 104 (98-106) mEq/L Carbon Dioxide 23 (21-32) mmol/L BUN 17 (7-18) mg/dL Creatinine 0.8 (0.6-1.0) mg/dL Est Cr Clr Drug Dosing 87.92 mL/min Estimated GFR (MDRD) > 60 (>=60) mL/min Glucose 133 H (75-99) mg/dL Lactic Acid (0.4-2.0) mmol/L Calcium 7.8 L (8.4-10.1) mg/dL Magnesium (1.8-2.4) mg/dL Total Bilirubin (0.0-1.0) mg/dL AST (15-37) U/L ALT (12-78) U/L Alkaline Phosphatase (46-116) U/L C-Reactive Protein 20.8 H (0.2-0.8) mg/dL Total Protein (6.4-8.2) g/dL Albumin (3.4-5.0) g/dL SARS CoV-2 RNA Rapid KAROL (NEGATIVE) Med Orders - Current: Current Medications Acetaminophen (Tylenol) 650 mg PO Q4H PRN PRN Reason: Pain (Mild 1-3)/fever Last Admin: 06/02/20 04:07 Dose: 650 mg Documented by: Albuterol (Ventolin Hfa) 1 - 2 gm INH Q4H PRN PRN Reason: Shortness of Breath Albuterol/Ipratropium (Duoneb 3.0-0.5 Mg/3 Ml) 3 ml NEB Q4H PRN PRN Reason: Shortness of Breath Aspirin (Halfprin) 81 mg PO DAILY [facility] Last Admin: 06/02/20 08:02 Dose: 81 mg Documented by: Ceftriaxone Sodium (Rocephin) 2 gm IVPUSH Q24H [facility] Last Admin: 06/01/20 22:07 Dose: 2 gm Documented by: Citalopram Hydrobromide (Celexa) 10 mg PO DAILY [facility] Last Admin: 06/02/20 08:03 Dose: 10 mg Documented by: Enoxaparin Sodium (Lovenox) 40 mg SUBCUT Q24H [facility] Last Admin: 06/01/20 22:07 Dose: 40 mg Documented by: Estradiol (Estradiol) 1 mg PO DAILY [facility] Last Admin: 06/02/20 08:01 Dose: 1 mg Documented by: Ferrous Sulfate (Ferrous Sulfate) 324 mg PO DAILY [facility] Last Admin: 06/02/20 08:04 Dose: 324 mg Documented by: Gabapentin (Neurontin) 100 mg PO BID@0800,1600 [facility] Last Admin: 06/02/20 08:04 Dose: 100 mg Documented by: Gabapentin (Neurontin) 300 mg PO BEDTIME [facility] Last Admin: 06/01/20 22:44 Dose: 300 mg Documented by: Hydroxyzine HCl (Atarax) 50 mg PO TID PRN PRN Reason: Itching Non-Formulary Medication (Glucosamine/Chondroitn/C/Steve [Glucosamine-Chondr Complex]) 1 each PO DAILY [facility] Non-Formulary Medication (Ropinirole [Requip]) 0.5 tab PO ASDIRECTED [facility] Ondansetron HCl (Zofran Odt) 4 mg PO Q4H PRN PRN Reason: nausea, able to take PO Pantoprazole Sodium (Protonix) 40 mg PO ACBREAKFAST [facility] Last Admin: 06/02/20 08:03 Dose: 40 mg Documented by: Pregabalin (Lyrica) 75 mg PO BID [facility] Last Admin: 06/02/20 08:02 Dose: 75 mg Documented by: Ropinirole HCl (Requip) 1 mg PO BID@0800,1600 [facility] Last Admin: 06/02/20 08:03 Dose: 1 mg Documented by: Ropinirole HCl (Requip) 4 mg PO BEDTIME [facility] Last Admin: 06/01/20 22:39 Dose: 4 mg Documented by: Simvastatin (Zocor) 20 mg PO BEDTIME [facility] Last Admin: 06/01/20 22:42 Dose: 20 mg Documented by: Sodium Chloride (Saline Flush) 10 ml FLUSH ASDIRECTED PRN PRN Reason: Keep Vein Open Temazepam (Restoril) 15 mg PO BEDTIME PRN PRN Reason: Sleep Vancomycin HCl (Pharmacy To Dose - Vancomycin) 1 dose .XX ASDIRECTED [facility] Discontinued Medications Pregabalin (Lyrica) 75 mg PO BID [facility] Ropinirole HCl (Requip) 4 mg PO BEDTIME [facility] Simvastatin (Zocor) 20 mg PO BEDTIME [facility] - Exam General: Alert, Oriented HEENT: Mucous Membr. Moist/[place] Neck: Supple Lungs: Clear to Auscultation, Normal Respiratory Effort Cardiovascular: Regular Rate, Regular Rhythm GI/Abdominal Exam: Normal Bowel Sounds, Soft, Non-Tender Extremities: Pedal Edema (3-4+ edema to lower extremities), Increased Warmth, Redness Wound/Incisions: Erythema, Other (serous drainage noted to left leg. REdness extends up to left thigh. Warm to the touch. ) Sepsis Event Note - Evaluation Sepsis Screening Result: No Definite Risk - Focused Exam Vital Signs: Vital Signs Temp Pulse Resp BP Pulse Ox 06/02/20 08:00 99.3 F 98 18 142/76 H 98 06/02/20 04:00 98.4 F 87 16 129/74 96 06/02/20 00:00 98.4 F 87 16 133/78 98 - Problem List & Annotations (1) Cellulitis of left leg SNOMED Code(s): 611119341 Code(s): L03.116 - CELLULITIS OF LEFT LOWER LIMB Status: Acute Priority: High Current Visit: Yes (2) Chronic acquired lymphedema SNOMED Code(s): 01401047 Code(s): I89.0 - LYMPHEDEMA, NOT ELSEWHERE CLASSIFIED Status: Acute Priority: High Current Visit: Yes - Problem List Review Problem List Initiated/Reviewed/Updated: Yes - My Orders Last 24 Hours: My Active Orders 06/01/20 20:05 CULTURE BLOOD [BC] Stat 06/01/20 20:15 CULTURE BLOOD [BC] Stat 06/01/20 21:00 CULTURE WOUND [RM] Stat 06/01/20 21:10 Resuscitation Status Routine 06/01/20 21:16 Albuterol [Ventolin HFA] 1 - 2 gm INH Q4H PRN Albuterol/Ipratropium [DuoNeb 3.0-0.5 MG/3 ML] 3 ml NEB Q4H PRN hydrOXYzine HCL [Atarax] 50 mg PO TID PRN 06/01/20 21:19 RT Aerosol Therapy [RC] .PRN 06/01/20 21:22 Acetaminophen [TylenoL] 650 mg PO Q4H PRN Enoxaparin [Lovenox] 40 mg SUBCUT Q24H Ondansetron [Zofran ODT] 4 mg PO Q4H PRN Sodium Chloride 0.9% [Saline Flush] 10 ml FLUSH ASDIRECTED PRN Temazepam [Restoril] 15 mg PO BEDTIME PRN 06/01/20 21:22 Patient Status [ADT] Routine Oxygen Therapy [RC] .PRN Up to Chair [RC] .PRN Vital Signs [RC] 0000,0400,0800,1200,1600,2000 PT Evaluation and Treatment [CONS] Routine Saline Lock Insert [OM.PC] Routine 06/01/20 21:30 rOPINIRole [Requip] 0.5 tab PO ASDIRECTED 06/01/20 22:00 cefTRIAXone [Rocephin] 2 gm IVPUSH Q24H 06/01/20 22:14 Pregabalin [Lyrica] 75 mg PO BID Simvastatin [Zocor] 20 mg PO BEDTIME rOPINIRole [Requip] 4 mg PO BEDTIME 06/01/20 22:30 Gabapentin [Neurontin] 300 mg PO BEDTIME 06/02/20 06:07 K Pad [Heat Therapy] [OM.PC] Routine 06/02/20 07:00 Pantoprazole [ProTONIX] 40 mg PO ACBREAKFAST 06/02/20 08:00 Aspirin [Halfprin] 81 mg PO DAILY Citalopram [Celexa] 10 mg PO DAILY Ferrous Sulfate 324 mg PO DAILY Gabapentin [Neurontin] 100 mg PO BID@0800,1600 Glucosamine/Chondroitn/C/Steve [Glucosamine-Chondr Complex] 1 each PO DAILY estradioL 1 mg PO DAILY rOPINIRole [Requip] 1 mg PO BID@0800,1600 06/02/20 10:45 Pharmacy to Dose - Vancomycin 1 dose .XX ASDIRECTED - Assessment Assessment:: LLE Cellulitis - Plan Plan:: Patient's leg unchanged since last evening. Continues to be red, warm and draining serous fluid. "does ache". Complains of a headache and sinus congestion today. Did have negative COVID test last night that was negative. Labs today show normal WBC. CRP is still high at 20.8. Low grade temp. 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 Will add Vancomycin this am. Ibuprofen for her headache, Toradol if needed. Repeat labs in am.
[2020-06-02] MEDS ORDERED: Ketorolac 30 MG/ML SDV IVPUSH PRN (11:11)
[2020-06-02] MEDS: Ibuprofen 200 MG Tab PO PRN (11:22)
[2020-06-02] MEDS: Vancomycin/Water for INJ (PEG) 2 GM in Premix Bag 1 BAG IV SCH ×2 (11:25→23:48)
[2020-06-02] MEDS ORDERED: Furosemide 40 MG/4 ML VIAL IVPUSH SCH (12:30)
[2020-06-02] MEDS: Gabapentin 300 MG Cap PO SCH (19:43)
[2020-06-02] MEDS: Simvastatin 20 MG Tab PO SCH (19:44)
[2020-06-02] MEDS ORDERED: rOPINIRole 1 MG Tab PO SCH (20:00)
[2020-06-02] MEDS ORDERED: Simvastatin 20 MG Tab PO SCH (20:00)
[2020-06-02] MEDS: Enoxaparin 40 MG/0.4 ML Syringe SUBCUT SCH (20:40)
[2020-06-02] MEDS: cefTRIAXone 2 GM Vial IVPUSH SCH (21:23)
[2020-06-03] MEDS: Acetaminophen 325 MG Tab PO PRN ×3 (05:53→23:48)
[2020-06-03] MEDS: Pantoprazole 40 MG Tab.CR PO SCH (06:06)
[2020-06-03 07:23] LABS: CHLORIDE,CL 105 mEq/L (98-106); SODIUM,NA 140 mEq/L (136-145)
[2020-06-03] MEDS: Furosemide 40 MG/4 ML VIAL IVPUSH SCH (07:43)
[2020-06-03] MEDS: Pregabalin 25 MG Cap PO SCH ×2 (07:44→19:41)
[2020-06-03] MEDS: Ferrous Sulfate 324 MG Tab.EC PO SCH (07:45)
[2020-06-03] MEDS: Aspirin 81 MG Tab.EC PO SCH (07:45)
[2020-06-03] MEDS: Estradiol 1 MG Tab PO SCH (07:45)
[2020-06-03] MEDS: Gabapentin 100 MG Cap PO SCH ×2 (07:46→15:38)
[2020-06-03] MEDS: Citalopram 10 MG Tab PO SCH (07:46)
[2020-06-03] MEDS: rOPINIRole 1 MG Tab PO SCH ×3 (07:47→19:40)
--- NOTE | 2020-06-03 09:14 | PCM.PN ---
- General Info Date of Service: 06/03/20 Admission Dx/Problem (Free Text): Cellulitis of LLE Functional Status: Reports: Pain Controlled, Tolerating Diet, Ambulating - Review of Systems General: Reports: Fever, Fatigue, Malaise HEENT: Reports: Headaches, Sinus Congestion Pulmonary: Denies: Shortness of Breath, Cough Cardiovascular: Reports: Edema. Denies: Chest Pain, Lightheadedness Gastrointestinal: Denies: Abdominal Pain, Nausea, Vomiting Genitourinary: Reports: No Symptoms Musculoskeletal: Reports: Leg Pain Skin: Reports: Other (redness and warmth to left leg) Neurological: Reports: Headache Psychiatric: Reports: No Symptoms - Patient Data Vitals - Most Recent: Last Vital Signs Temp 99.3 F 06/03/20 07:41 Pulse 79 06/03/20 07:41 Resp 20 06/03/20 07:41 BP 119/62 06/03/20 07:41 Pulse Ox 94 L 06/03/20 07:41 Weight - Most Recent: 352 lb I&O - Last 24 Hours: Intake & Output 06/02/20 06/03/20 06/03/20 22:59 06:59 14:59 Intake Total 640 400 Output Total 1300 1350 Balance -660 -950 Lab Results Last 24 Hours: Laboratory Results - last 24 hr 06/03/20 06/03/20 Range/Units 05:11 05:11 WBC 8.0 (5.0-10.0) 10^3/uL RBC 3.96 L (4.00-5.50) 10^6/uL Hgb 12.1 (12.0-16.0) g/dL Hct 36.5 L (37.0-47.0) % MCV 92.2 (82.0-94.0) fL MCH 30.6 (27.0-32.0) pg MCHC 33.2 (33.0-38.0) g/dL RDW Coeff of Debi 13.2 (11.0-15.0) % Plt Count 229 (150-400) 10^3/uL Neut % (Auto) 66.3 (35-85) % Lymph % (Auto) 16.9 (10-55) % [place] % (Auto) 10.4 (0-16) % Eos % (Auto) 6.1 H (0-5) % Baso % (Auto) 0.3 (0-3) % Neut # (Auto) 5.29 (1.80-7.00) 10^3/uL Lymph # (Auto) 1.35 (1.00-4.80) 10^3/uL [place] # (Auto) 0.83 H (0.00-0.80) 10^3/uL Eos # (Auto) 0.49 H (0.00-0.45) 10^3/uL Baso # (Auto) 0.02 10^3/uL Sodium 140 (136-145) mEq/L Potassium 3.5 (3.5-5.0) mEq/L Chloride 105 (98-106) mEq/L Carbon Dioxide 27 (21-32) mmol/L BUN 17 (7-18) mg/dL Creatinine 0.9 (0.6-1.0) mg/dL Est Cr Clr Drug Dosing 78.15 mL/min Estimated GFR (MDRD) > 60 (>=60) mL/min Glucose 119 H (75-99) mg/dL Calcium 8.0 L (8.4-10.1) mg/dL C-Reactive Protein 20.2 H (0.2-0.8) mg/dL Terry Results Last 24 Hours: Microbiology 06/01/20 20:15 Aerobic Blood Culture - Preliminary Blood - Venous - Lab Draw NO GROWTH AFTER 1 DAY Anaerobic Blood Culture - Preliminary NO GROWTH AFTER 1 DAY 06/01/20 20:05 Aerobic Blood Culture - Preliminary Blood - Venous NO GROWTH AFTER 1 DAY Anaerobic Blood Culture - Preliminary NO GROWTH AFTER 1 DAY Med Orders - Current: Current Medications Acetaminophen (Tylenol) 650 mg PO Q4H PRN PRN Reason: Pain (Mild 1-3)/fever Last Admin: 06/03/20 05:53 Dose: 650 mg Documented by: Albuterol (Ventolin Hfa) 1 - 2 gm INH Q4H PRN PRN Reason: Shortness of Breath Albuterol/Ipratropium (Duoneb 3.0-0.5 Mg/3 Ml) 3 ml NEB Q4H PRN PRN Reason: Shortness of Breath Aspirin (Halfprin) 81 mg PO DAILY [facility] Last Admin: 06/03/20 07:45 Dose: 81 mg Documented by: Ceftriaxone Sodium (Rocephin) 2 gm IVPUSH Q24H [facility] Last Admin: 06/02/20 21:23 Dose: 2 gm Documented by: Citalopram Hydrobromide (Celexa) 10 mg PO DAILY [facility] Last Admin: 06/03/20 07:46 Dose: 10 mg Documented by: Enoxaparin Sodium (Lovenox) 40 mg SUBCUT Q24H [facility] Last Admin: 06/02/20 20:40 Dose: 40 mg Documented by: Estradiol (Estradiol) 1 mg PO DAILY [facility] Last Admin: 06/03/20 07:45 Dose: 1 mg Documented by: Ferrous Sulfate (Ferrous Sulfate) 324 mg PO DAILY [facility] Last Admin: 06/03/20 07:45 Dose: 324 mg Documented by: Furosemide (Lasix) 40 mg IVPUSH Q24H [facility] Last Admin: 06/03/20 07:43 Dose: 40 mg Documented by: Gabapentin (Neurontin) 100 mg PO BID@0800,1600 [facility] Last Admin: 06/03/20 07:46 Dose: 100 mg Documented by: Gabapentin (Neurontin) 300 mg PO BEDTIME [facility] Last Admin: 06/02/20 19:43 Dose: 300 mg Documented by: Hydroxyzine HCl (Atarax) 50 mg PO TID PRN PRN Reason: Itching Vancomycin HCl 2 gm/ Premix 400 mls @ 200 mls/hr IV Q12H [facility] Last Admin: 06/02/20 23:48 Dose: 200 mls/hr Documented by: Ibuprofen (Motrin) 400 mg PO Q6H PRN PRN Reason: Headache Last Admin: 06/02/20 11:22 Dose: 400 mg Documented by: Ketorolac Tromethamine (Toradol) 30 mg IVPUSH Q6H PRN PRN Reason: Headache Stop: 06/07/20 11:12 Last Admin: 06/02/20 22:31 Dose: 30 mg Documented by: Non-Formulary Medication (Glucosamine/Chondroitn/C/Steve [Glucosamine-Chondr Complex]) 1 each PO DAILY [facility] Non-Formulary Medication (Ropinirole [Requip]) 0.5 tab PO ASDIRECTED [facility] Ondansetron HCl (Zofran Odt) 4 mg PO Q4H PRN PRN Reason: nausea, able to take PO Pantoprazole Sodium (Protonix) 40 mg PO ACBREAKFAST [facility] Last Admin: 06/03/20 06:06 Dose: 40 mg Documented by: Pregabalin (Lyrica) 75 mg PO BID [facility] Last Admin: 06/03/20 07:44 Dose: 75 mg Documented by: Ropinirole HCl (Requip) 1 mg PO BID@0800,1600 [facility] Last Admin: 06/03/20 07:47 Dose: 1 mg Documented by: Ropinirole HCl (Requip) 4 mg PO BEDTIME [facility] Last Admin: 06/02/20 19:43 Dose: 4 mg Documented by: Simvastatin (Zocor) 20 mg PO BEDTIME [facility] Last Admin: 06/02/20 19:44 Dose: 20 mg Documented by: Sodium Chloride (Saline Flush) 10 ml FLUSH ASDIRECTED PRN PRN Reason: Keep Vein Open Temazepam (Restoril) 15 mg PO BEDTIME PRN PRN Reason: Sleep Vancomycin HCl (Pharmacy To Dose - Vancomycin) 1 dose .XX ASDIRECTED [facility] Discontinued Medications Furosemide (Lasix) 40 mg IVPUSH Q24H [facility] Last Admin: 06/02/20 12:53 Dose: 40 mg Documented by: Pregabalin (Lyrica) 75 mg PO BID [facility] Ropinirole HCl (Requip) 4 mg PO BEDTIME [facility] Simvastatin (Zocor) 20 mg PO BEDTIME [facility] - Exam General: Alert, Oriented HEENT: Mucous Membr. Moist/[place] Neck: Supple Lungs: Clear to Auscultation, Normal Respiratory Effort Cardiovascular: Regular Rate, Regular Rhythm GI/Abdominal Exam: Normal Bowel Sounds, Soft, Non-Tender Extremities: Pedal Edema (edema 4+ to left leg. Redness extends to left thigh. Warm to the touch), Leg Pain, Increased Warmth, Redness Wound/Incisions: Drainage, Erythema Neurological: No New Focal Deficit Sepsis Event Note - Evaluation Sepsis Screening Result: No Definite Risk - Focused Exam Vital Signs: Vital Signs Temp Pulse Resp BP Pulse Ox 06/03/20 07:41 99.3 F 79 20 119/62 94 L 06/03/20 04:00 99.0 F 80 20 122/60 95 06/03/20 02:24 98.7 F 06/02/20 23:56 101.5 F H 96 20 123/55 L 94 L 06/02/20 22:30 102.4 F H 06/02/20 21:30 101.0 F H - Problem List & Annotations (1) Cellulitis of left leg SNOMED Code(s): 172132872 Code(s): L03.116 - CELLULITIS OF LEFT LOWER LIMB Status: Acute Priority: High Current Visit: Yes (2) Chronic acquired lymphedema SNOMED Code(s): 91161998 Code(s): I89.0 - LYMPHEDEMA, NOT ELSEWHERE CLASSIFIED Status: Acute Priority: High Current Visit: Yes - Problem List Review Problem List Initiated/Reviewed/Updated: Yes - My Orders Last 24 Hours: My Active Orders 06/02/20 10:45 Pharmacy to Dose - Vancomycin 1 dose .XX ASDIRECTED 06/02/20 11:07 Ibuprofen [Motrin] 400 mg PO Q6H PRN 06/02/20 11:11 Ketorolac [Toradol] 30 mg IVPUSH Q6H PRN 06/02/20 12:00 Vancomycin/Water for INJ (PEG) [Vancomycin 2 GM/400 ML Premix] 2 gm Premix Bag 1 bag IV Q12H 06/03/20 08:00 Furosemide [Lasix] 40 mg IVPUSH Q24H 06/04/20 05:11 BASIC METABOLIC PANEL,BMP [CHEM] DAILY C-REACTIVE PROTEIN [CHEM] DAILY CBC WITH AUTO DIFF [HEME] DAILY 06/05/20 05:11 BASIC METABOLIC PANEL,BMP [CHEM] DAILY C-REACTIVE PROTEIN [CHEM] DAILY CBC WITH AUTO DIFF [HEME] DAILY - Assessment Assessment:: LLE Cellulitis - Plan Plan:: Patient's leg unchanged since last evening. Continues to be red, warm and draining serous fluid. "does ache". Complains of a headache and sinus congestion today. Did have negative COVID test last night that was negative. Labs today show normal WBC. CRP is still high at 20.8. Low grade temp. 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 Will add Vancomycin this am. Ibuprofen for her headache, Toradol if needed. Repeat labs in am. 06-03-2020 Patient states leg feeling better this am, less discomfort. Redness is somewhat improved from yesterday in comparison to the skin markings. Still draining a large amount of serous drainage. Edema still 4+. Still complaining of a headache yet. Did spike a fever last night. Patient has been resistant to IV Lasix, concerned about "not getting to the bathroom in time". Explained importance of this for the patient due to significant edema in her legs and inability to control the infection and recurrence of it without reducing the edema. WBC is still normal. CRP high at 20.2. wound culture is negative on day 1. Again talked about the compression devices. had been advised to discuss those with public health after her last admission in February as PT is unable to provide those for her. She admits she had the note but forgot to discuss it with them. Will continue IV vancomycin and Rocephin. Repeat labs in am.
[2020-06-03] MEDS: [UNRECOGNIZED DRUG - OTHER] PO SCH (11:14)
[2020-06-03] MEDS: Vancomycin/Water for INJ (PEG) 2 GM in Premix Bag 1 BAG IV SCH (14:54)
[2020-06-03] MEDS: Simvastatin 20 MG Tab PO SCH (19:42)
[2020-06-03] MEDS: Gabapentin 300 MG Cap PO SCH (19:42)
[2020-06-03] MEDS: cefTRIAXone 2 GM Vial IVPUSH SCH (21:24)
[2020-06-03] MEDS: Enoxaparin 40 MG/0.4 ML Syringe SUBCUT SCH (21:28)
[2020-06-04] MEDS: Vancomycin/Water for INJ (PEG) 2 GM in Premix Bag 1 BAG IV SCH ×2 (02:56→17:14)
[2020-06-04] MEDS: Pantoprazole 40 MG Tab.CR PO SCH (06:34)
[2020-06-04] MEDS: Pregabalin 25 MG Cap PO SCH ×2 (07:34→19:49)
[2020-06-04] MEDS: Aspirin 81 MG Tab.EC PO SCH (07:35)
[2020-06-04] MEDS: Ferrous Sulfate 324 MG Tab.EC PO SCH (07:36)
[2020-06-04] MEDS: rOPINIRole 1 MG Tab PO SCH ×3 (07:36→19:48)
[2020-06-04] MEDS: Citalopram 10 MG Tab PO SCH (07:36)
[2020-06-04] MEDS: Estradiol 1 MG Tab PO SCH (07:36)
[2020-06-04] MEDS: Gabapentin 100 MG Cap PO SCH ×2 (07:37→17:13)
[2020-06-04] MEDS: Furosemide 40 MG/4 ML VIAL IVPUSH SCH (07:37)
[2020-06-04 07:52] LABS: CHLORIDE,CL 105 mEq/L (98-106); SODIUM,NA 140 mEq/L (136-145)
--- NOTE | 2020-06-04 09:19 | PCM.PN ---
- General Info Date of Service: 06/04/20 Admission Dx/Problem (Free Text): Cellulitis of LLE Functional Status: Reports: Pain Controlled, Tolerating Diet, Ambulating, Urinating - Review of Systems General: Reports: Weakness, Malaise. Denies: Fatigue, Chills HEENT: Reports: Headaches. Denies: Sinus Congestion (admits is improved now) Pulmonary: Denies: Shortness of Breath, Cough Cardiovascular: Reports: Edema. Denies: Chest Pain, Lightheadedness Gastrointestinal: Denies: Abdominal Pain, Nausea, Vomiting Genitourinary: Reports: No Symptoms Musculoskeletal: Reports: Leg Pain Skin: Reports: Other (redness, warmth and blistering to left leg) Neurological: Reports: Weakness - Patient Data Vitals - Most Recent: Last Vital Signs Temp 98.8 F 06/04/20 07:32 Pulse 80 06/04/20 07:32 Resp 20 06/04/20 07:32 BP 127/66 06/04/20 07:32 Pulse Ox 96 06/04/20 07:32 Weight - Most Recent: 352 lb I&O - Last 24 Hours: Intake & Output 06/03/20 06/04/20 06/04/20 22:59 06:59 14:59 Intake Total 1400 1000 Output Total 1600 800 Balance -200 200 Lab Results Last 24 Hours: Laboratory Results - last 24 hr 06/04/20 06/04/20 Range/Units 07:20 07:20 WBC 8.2 (5.0-10.0) 10^3/uL RBC 3.89 L (4.00-5.50) 10^6/uL Hgb 11.7 L (12.0-16.0) g/dL Hct 36.0 L (37.0-47.0) % MCV 92.5 (82.0-94.0) fL MCH 30.1 (27.0-32.0) pg MCHC 32.5 L (33.0-38.0) g/dL RDW Coeff of Debi 13.1 (11.0-15.0) % Plt Count 265 (150-400) 10^3/uL Neut % (Auto) 58.5 (35-85) % Lymph % (Auto) 24.1 (10-55) % [place] % (Auto) 11.6 (0-16) % Eos % (Auto) 5.6 H (0-5) % Baso % (Auto) 0.2 (0-3) % Neut # (Auto) 4.79 (1.80-7.00) 10^3/uL Lymph # (Auto) 1.97 (1.00-4.80) 10^3/uL [place] # (Auto) 0.95 H (0.00-0.80) 10^3/uL Eos # (Auto) 0.46 H (0.00-0.45) 10^3/uL Baso # (Auto) 0.02 10^3/uL Sodium 140 (136-145) mEq/L Potassium 3.8 (3.5-5.0) mEq/L Chloride 105 (98-106) mEq/L Carbon Dioxide 27 (21-32) mmol/L BUN 15 (7-18) mg/dL Creatinine 0.8 (0.6-1.0) mg/dL Est Cr Clr Drug Dosing 87.92 mL/min Estimated GFR (MDRD) > 60 (>=60) mL/min Glucose 118 H (75-99) mg/dL Calcium 8.2 L (8.4-10.1) mg/dL C-Reactive Protein 12.6 H (0.2-0.8) mg/dL Terry Results Last 24 Hours: Microbiology 06/01/20 20:15 Aerobic Blood Culture - Preliminary Blood - Venous - Lab Draw NO GROWTH AFTER 2 DAYS Anaerobic Blood Culture - Preliminary NO GROWTH AFTER 2 DAYS 06/01/20 20:05 Aerobic Blood Culture - Preliminary Blood - Venous NO GROWTH AFTER 2 DAYS Anaerobic Blood Culture - Preliminary NO GROWTH AFTER 2 DAYS 06/01/20 21:00 Wound Culture - Preliminary Skin / Skin Scrapings - Leg, Left Gram Negative Rods Streptococcus Group C Gram Positive Cocci Med Orders - Current: Current Medications Acetaminophen (Tylenol) 650 mg PO Q4H PRN PRN Reason: Pain (Mild 1-3)/fever Last Admin: 06/03/20 23:48 Dose: 650 mg Documented by: Albuterol (Ventolin Hfa) 1 - 2 gm INH Q4H PRN PRN Reason: Shortness of Breath Albuterol/Ipratropium (Duoneb 3.0-0.5 Mg/3 Ml) 3 ml NEB Q4H PRN PRN Reason: Shortness of Breath Aspirin (Halfprin) 81 mg PO DAILY [facility] Last Admin: 06/04/20 07:35 Dose: 81 mg Documented by: Ceftriaxone Sodium (Rocephin) 2 gm IVPUSH Q24H [facility] Last Admin: 06/03/20 21:24 Dose: 2 gm Documented by: Citalopram Hydrobromide (Celexa) 10 mg PO DAILY [facility] Last Admin: 06/04/20 07:36 Dose: 10 mg Documented by: Enoxaparin Sodium (Lovenox) 40 mg SUBCUT Q24H [facility] Last Admin: 06/03/20 21:28 Dose: 40 mg Documented by: Estradiol (Estradiol) 1 mg PO DAILY [facility] Last Admin: 06/04/20 07:36 Dose: 1 mg Documented by: Ferrous Sulfate (Ferrous Sulfate) 324 mg PO DAILY [facility] Last Admin: 06/04/20 07:36 Dose: 324 mg Documented by: Furosemide (Lasix) 40 mg IVPUSH Q24H [facility] Last Admin: 06/04/20 07:37 Dose: 40 mg Documented by: Gabapentin (Neurontin) 100 mg PO BID@0800,1600 [facility] Last Admin: 06/04/20 07:37 Dose: 100 mg Documented by: Gabapentin (Neurontin) 300 mg PO BEDTIME [facility] Last Admin: 06/03/20 19:42 Dose: 300 mg Documented by: Hydroxyzine HCl (Atarax) 50 mg PO TID PRN PRN Reason: Itching Vancomycin HCl 2 gm/ Premix 400 mls @ 200 mls/hr IV Q12H [facility] Last Admin: 06/04/20 02:56 Dose: 200 mls/hr Documented by: Ibuprofen (Motrin) 400 mg PO Q6H PRN PRN Reason: Headache Last Admin: 06/02/20 11:22 Dose: 400 mg Documented by: Ketorolac Tromethamine (Toradol) 30 mg IVPUSH Q6H PRN PRN Reason: Headache Stop: 06/07/20 11:12 Last Admin: 06/02/20 22:31 Dose: 30 mg Documented by: Ondansetron HCl (Zofran Odt) 4 mg PO Q4H PRN PRN Reason: nausea, able to take PO Pantoprazole Sodium (Protonix) 40 mg PO ACBREAKFAST [facility] Last Admin: 06/04/20 06:34 Dose: 40 mg Documented by: Pregabalin (Lyrica) 75 mg PO BID [facility] Last Admin: 06/04/20 07:34 Dose: 75 mg Documented by: Ropinirole HCl (Requip) 1 mg PO BID@0800,1600 [facility] Last Admin: 06/04/20 07:36 Dose: 1 mg Documented by: Ropinirole HCl (Requip) 4 mg PO BEDTIME [facility] Last Admin: 06/03/20 19:40 Dose: 4 mg Documented by: Simvastatin (Zocor) 20 mg PO BEDTIME [facility] Last Admin: 06/03/20 19:42 Dose: 20 mg Documented by: Sodium Chloride (Saline Flush) 10 ml FLUSH ASDIRECTED PRN PRN Reason: Keep Vein Open Temazepam (Restoril) 15 mg PO BEDTIME PRN PRN Reason: Sleep Vancomycin HCl (Pharmacy To Dose - Vancomycin) 1 dose .XX ASDIRECTED [facility] Discontinued Medications Furosemide (Lasix) 40 mg IVPUSH Q24H [facility] Last Admin: 06/02/20 12:53 Dose: 40 mg Documented by: Non-Formulary Medication (Glucosamine/Chondroitn/C/Steve [Glucosamine-Chondr Complex]) 1 each PO DAILY [facility] Last Admin: 06/03/20 11:14 Dose: Not Given Documented by: Non-Formulary Medication (Ropinirole [Requip]) 0.5 tab PO ASDIRECTED [facility] Pregabalin (Lyrica) 75 mg PO BID [facility] Ropinirole HCl (Requip) 4 mg PO BEDTIME [facility] Simvastatin (Zocor) 20 mg PO BEDTIME [facility] - Exam General: Alert, Oriented HEENT: Mucous Membr. Moist/[place] Neck: Supple Lungs: Clear to Auscultation, Normal Respiratory Effort Cardiovascular: Regular Rate, Regular Rhythm GI/Abdominal Exam: Normal Bowel Sounds, Soft, Non-Tender Extremities: Leg Pain, Increased Warmth, Redness, Other (Left leg remains red but has improved slightly. Skin is rough, blisters now have formed to the left groin. Edema is improved as she has been more compliant with laying in bed and keeping her legs up. Still draining a large amount of fluid ) Wound/Incisions: Drainage, Erythema Improving Neurological: No New Focal Deficit Sepsis Event Note - Evaluation Sepsis Screening Result: No Definite Risk - Focused Exam Vital Signs: Vital Signs Temp Temp Pulse Pulse Resp BP BP 06/04/20 07:32 98.8 F 80 20 127/66 06/04/20 04:00 97.9 F 80 18 114/53 L 06/04/20 00:00 99.9 F 97 18 126/57 L Pulse Ox 06/04/20 07:32 96 06/04/20 04:00 94 L 06/04/20 00:00 94 L - Problem List & Annotations (1) Cellulitis of left leg SNOMED Code(s): 313534408 Code(s): L03.116 - CELLULITIS OF LEFT LOWER LIMB Status: Acute Priority: High Current Visit: Yes (2) Chronic acquired lymphedema SNOMED Code(s): 21309144 Code(s): I89.0 - LYMPHEDEMA, NOT ELSEWHERE CLASSIFIED Status: Acute Priority: High Current Visit: Yes - Problem List Review Problem List Initiated/Reviewed/Updated: Yes - My Orders Last 24 Hours: My Active Orders 06/05/20 05:11 BASIC METABOLIC PANEL,BMP [CHEM] DAILY C-REACTIVE PROTEIN [CHEM] DAILY CBC WITH AUTO DIFF [HEME] DAILY - Assessment Assessment:: LLE Cellulitis - Plan Plan:: Patient's leg unchanged since last evening. Continues to be red, warm and antonio ining serous fluid. "does ache". Complains of a headache and sinus congestion today. Did have negative COVID test last night that was negative. Labs today show normal WBC. CRP is still high at 20.8. Low grade temp. 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 Will add Vancomycin this am. Ibuprofen for her headache, Toradol if needed. Repeat labs in am. 06-03-2020 Patient states leg feeling better this am, less discomfort. Redness is somewhat improved from yesterday in comparison to the skin markings. Still draining a large amount of serous drainage. Edema still 4+. Still complaining of a headache yet. Did spike a fever last night. Patient has been resistant to IV Lasix, concerned about "not getting to the bathroom in time". Explained importance of this for the patient due to significant edema in her legs and inability to control the infection and recurrence of it without reducing the edema. WBC is still normal. CRP high at 20.2. wound culture is negative on day 1. Again talked about the compression devices. had been advised to discuss those with public health after her last admission in February as PT is unable to provide those for her. She admits she had the note but forgot to discuss it with them. Will continue IV vancomycin and Rocephin. Repeat labs in am. 06-04-2020 Patient's leg is slowly improving. She has been more compliant with lying in bed, edema is improved. Upper thigh is noting blisters now. Still remains warm and red. Only low grade fevers the last 24 hours. Labs are improving. WBC normal, CRP down to 12. Culture is growing gram negative rods, gram positive cocci, streptococcus group C. 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 Encouraged to continue to keep legs elevated. Await full culture sensitivities, continue IV Rocephin and Vancomycin at this time.
[2020-06-04] MEDS: Simvastatin 20 MG Tab PO SCH (19:50)
[2020-06-04] MEDS: Gabapentin 300 MG Cap PO SCH (19:50)
[2020-06-04] MEDS: cefTRIAXone 2 GM Vial IVPUSH SCH (21:16)
[2020-06-04] MEDS: Enoxaparin 40 MG/0.4 ML Syringe SUBCUT SCH (21:19)
[2020-06-04] MEDS: Acetaminophen 325 MG Tab PO PRN (23:12)
[2020-06-05] MEDS: Vancomycin/Water for INJ (PEG) 2 GM in Premix Bag 1 BAG IV SCH (03:52)
[2020-06-05] MEDS: Pantoprazole 40 MG Tab.CR PO SCH (06:00)
[2020-06-05 07:27] LABS: CHLORIDE,CL 105 mEq/L (98-106); SODIUM,NA 140 mEq/L (136-145)
[2020-06-05] MEDS: Furosemide 40 MG/4 ML VIAL IVPUSH SCH (07:37)
[2020-06-05] MEDS: Citalopram 10 MG Tab PO SCH (07:37)
[2020-06-05] MEDS: rOPINIRole 1 MG Tab PO SCH ×3 (07:37→19:37)
[2020-06-05] MEDS: Ferrous Sulfate 324 MG Tab.EC PO SCH (07:38)
[2020-06-05] MEDS: Gabapentin 100 MG Cap PO SCH ×2 (07:38→15:35)
[2020-06-05] MEDS: Aspirin 81 MG Tab.EC PO SCH (07:38)
[2020-06-05] MEDS: Pregabalin 25 MG Cap PO SCH ×2 (07:39→19:36)
[2020-06-05] MEDS: Estradiol 1 MG Tab PO SCH (07:39)
[2020-06-05] MEDS: Levofloxacin/Dextrose 5%-Water 500 MG in Premix Bag 1 BAG IV SCH (11:01)
--- NOTE | 2020-06-05 13:41 | PCM.PN ---
- General Info Date of Service: 06/05/20 Admission Dx/Problem (Free Text): Cellulitis of LLE Functional Status: Reports: Pain Controlled, Tolerating Diet, Ambulating - Review of Systems General: Reports: Fever, Weakness, Fatigue, Malaise HEENT: Reports: Headaches Pulmonary: Denies: Shortness of Breath, Cough Cardiovascular: Reports: Edema. Denies: Chest Pain, Lightheadedness Gastrointestinal: Denies: Abdominal Pain, Nausea, Vomiting Genitourinary: Reports: No Symptoms Musculoskeletal: Reports: Leg Pain Skin: Reports: Other (redness, warmth and drainage) Neurological: Reports: Headache - Patient Data Vitals - Most Recent: Last Vital Signs Temp 98.3 F 06/05/20 12:00 Pulse 90 06/05/20 12:00 Resp 20 06/05/20 12:00 BP 139/71 06/05/20 12:00 Pulse Ox 94 L 06/05/20 12:00 Weight - Most Recent: 352 lb I&O - Last 24 Hours: Intake & Output 06/04/20 06/05/20 06/05/20 22:59 06:59 14:59 Intake Total 1400 300 Output Total 400 850 Balance 1000 -550 Lab Results Last 24 Hours: Laboratory Results - last 24 hr 06/04/20 06/05/20 06/05/20 Range/Units 15:30 07:05 07:05 WBC 7.3 (5.0-10.0) 10^3/uL RBC 3.88 L (4.00-5.50) 10^6/uL Hgb 11.9 L (12.0-16.0) g/dL Hct 35.7 L (37.0-47.0) % MCV 92.0 (82.0-94.0) fL MCH 30.7 (27.0-32.0) pg MCHC 33.3 (33.0-38.0) g/dL RDW Coeff of Debi 13.1 (11.0-15.0) % Plt Count 281 (150-400) 10^3/uL Neut % (Auto) 56.7 (35-85) % Lymph % (Auto) 26.9 (10-55) % [place] % (Auto) 10.7 (0-16) % Eos % (Auto) 5.3 H (0-5) % Baso % (Auto) 0.4 (0-3) % Neut # (Auto) 4.14 (1.80-7.00) 10^3/uL Lymph # (Auto) 1.97 (1.00-4.80) 10^3/uL [place] # (Auto) 0.78 (0.00-0.80) 10^3/uL Eos # (Auto) 0.39 (0.00-0.45) 10^3/uL Baso # (Auto) 0.03 10^3/uL Sodium 140 (136-145) mEq/L Potassium 3.7 (3.5-5.0) mEq/L Chloride 105 (98-106) mEq/L Carbon Dioxide 26 (21-32) mmol/L BUN 13 (7-18) mg/dL Creatinine 0.7 (0.6-1.0) mg/dL Est Cr Clr Drug Dosing 100.48 mL/min Estimated GFR (MDRD) > 60 (>=60) mL/min Glucose 129 H (75-99) mg/dL Calcium 8.3 L (8.4-10.1) mg/dL C-Reactive Protein 7.1 H (0.2-0.8) mg/dL Vancomycin Trough 15.3 (10-20) ug/mL Terry Results Last 24 Hours: Microbiology 06/01/20 21:00 Wound Culture - Final Skin / Skin Scrapings - Leg, Left A Baumannii/Haemolyticus Streptococcus Group C Staphylococcus Aureus 06/01/20 20:15 Aerobic Blood Culture - Preliminary Blood - Venous - Lab Draw NO GROWTH AFTER 3 DAYS Anaerobic Blood Culture - Preliminary NO GROWTH AFTER 3 DAYS 06/01/20 20:05 Aerobic Blood Culture - Preliminary Blood - Venous NO GROWTH AFTER 3 DAYS Anaerobic Blood Culture - Preliminary NO GROWTH AFTER 3 DAYS Med Orders - Current: Current Medications Acetaminophen (Tylenol) 650 mg PO Q4H PRN PRN Reason: Pain (Mild 1-3)/fever Last Admin: 06/04/20 23:12 Dose: 650 mg Documented by: Albuterol (Ventolin Hfa) 1 - 2 gm INH Q4H PRN PRN Reason: Shortness of Breath Albuterol/Ipratropium (Duoneb 3.0-0.5 Mg/3 Ml) 3 ml NEB Q4H PRN PRN Reason: Shortness of Breath Aspirin (Halfprin) 81 mg PO DAILY [facility] Last Admin: 06/05/20 07:38 Dose: 81 mg Documented by: Citalopram Hydrobromide (Celexa) 10 mg PO DAILY [facility] Last Admin: 06/05/20 07:37 Dose: 10 mg Documented by: Enoxaparin Sodium (Lovenox) 40 mg SUBCUT Q24H [facility] Last Admin: 06/04/20 21:19 Dose: 40 mg Documented by: Estradiol (Estradiol) 1 mg PO DAILY [facility] Last Admin: 06/05/20 07:39 Dose: 1 mg Documented by: Ferrous Sulfate (Ferrous Sulfate) 324 mg PO DAILY [facility] Last Admin: 06/05/20 07:38 Dose: 324 mg Documented by: Furosemide (Lasix) 40 mg IVPUSH Q24H [facility] Last Admin: 06/05/20 07:37 Dose: 40 mg Documented by: Gabapentin (Neurontin) 100 mg PO BID@0800,1600 [facility] Last Admin: 06/05/20 07:38 Dose: 100 mg Documented by: Gabapentin (Neurontin) 300 mg PO BEDTIME [facility] Last Admin: 06/04/20 19:50 Dose: 300 mg Documented by: Heparin Sodium (Porcine) (Heparin Lock Flush 100 Units/Ml) 300 units FLUSH DAILY PRN PRN Reason: Other Last Admin: 06/05/20 08:48 Dose: 300 units Documented by: Heparin Sodium (Porcine) (Heparin Lock Flush 100 Units/Ml) 300 units FLUSH DAILY@0800 [facility] Last Admin: 06/05/20 11:00 Dose: 300 units Documented by: Hydroxyzine HCl (Atarax) 50 mg PO TID PRN PRN Reason: Itching Levofloxacin/Dextrose 500 mg/ (Premix) 100 mls @ 100 mls/hr IV DAILY@0800 [facility] Last Admin: 06/05/20 11:01 Dose: 100 mls/hr Documented by: Ibuprofen (Motrin) 400 mg PO Q6H PRN PRN Reason: Headache Last Admin: 06/02/20 11:22 Dose: 400 mg Documented by: Ketorolac Tromethamine (Toradol) 30 mg IVPUSH Q6H PRN PRN Reason: Headache Stop: 06/07/20 11:12 Last Admin: 06/02/20 22:31 Dose: 30 mg Documented by: Ondansetron HCl (Zofran Odt) 4 mg PO Q4H PRN PRN Reason: nausea, able to take PO Pantoprazole Sodium (Protonix) 40 mg PO ACBREAKFAST [facility] Last Admin: 06/05/20 06:00 Dose: 40 mg Documented by: Pregabalin (Lyrica) 75 mg PO BID [facility] Last Admin: 06/05/20 07:39 Dose: 75 mg Documented by: Ropinirole HCl (Requip) 1 mg PO BID@0800,1600 [facility] Last Admin: 06/05/20 07:37 Dose: 1 mg Documented by: Ropinirole HCl (Requip) 4 mg PO BEDTIME [facility] Last Admin: 06/04/20 19:48 Dose: 4 mg Documented by: Simvastatin (Zocor) 20 mg PO BEDTIME [facility] Last Admin: 06/04/20 19:50 Dose: 20 mg Documented by: Sodium Chloride (Saline Flush) 10 ml FLUSH ASDIRECTED PRN PRN Reason: Keep Vein Open Temazepam (Restoril) 15 mg PO BEDTIME PRN PRN Reason: Sleep Discontinued Medications Ceftriaxone Sodium (Rocephin) 2 gm IVPUSH Q24H [facility] Last Admin: 06/04/20 21:16 Dose: 2 gm Documented by: Furosemide (Lasix) 40 mg IVPUSH Q24H [facility] Last Admin: 06/02/20 12:53 Dose: 40 mg Documented by: Heparin Sodium (Porcine) (Heparin Lock Flush 100 Units/Ml) 300 units FLUSH 0400,1600 [facility] Last Admin: 06/05/20 03:54 Dose: 300 units Documented by: Vancomycin HCl 2 gm/ Premix 400 mls @ 200 mls/hr IV Q12H [facility] Last Admin: 06/04/20 02:56 Dose: 200 mls/hr Documented by: Vancomycin HCl 2 gm/ Premix 400 mls @ 200 mls/hr IV Q12H [facility] Last Admin: 06/05/20 03:52 Dose: 200 mls/hr Documented by: Non-Formulary Medication (Glucosamine/Chondroitn/C/Steve [Glucosamine-Chondr Complex]) 1 each PO DAILY [facility] Last Admin: 06/03/20 11:14 Dose: Not Given Documented by: Non-Formulary Medication (Ropinirole [Requip]) 0.5 tab PO ASDIRECTED [facility] Pregabalin (Lyrica) 75 mg PO BID [facility] Ropinirole HCl (Requip) 4 mg PO BEDTIME [facility] Simvastatin (Zocor) 20 mg PO BEDTIME [facility] Vancomycin HCl (Pharmacy To Dose - Vancomycin) 1 dose .XX ASDIRECTED [facility] - Exam General: Alert, Oriented HEENT: Mucous Membr. Moist/[place] Neck: Supple Lungs: Clear to Auscultation, Normal Respiratory Effort Cardiovascular: Regular Rate, Regular Rhythm GI/Abdominal Exam: Normal Bowel Sounds, Soft, Non-Tender Extremities: Pedal Edema, Leg Pain, Increased Warmth (patient does continue to have redness to leg, warm to the touch. Is improving. Edema is improved. Still continues to have large amount of serous drainage from leg. ), Redness Wound/Incisions: Drainage, Erythema Improving Neurological: No New Focal Deficit Sepsis Event Note - Evaluation Sepsis Screening Result: No Definite Risk - Focused Exam Vital Signs: Vital Signs Temp Temp Pulse Pulse Resp BP BP 06/05/20 12:00 98.3 F 90 20 139/71 06/05/20 07:43 98.5 F 78 16 129/79 06/05/20 04:00 98.0 F 90 18 135/80 Pulse Ox 06/05/20 12:00 94 L 06/05/20 07:43 95 06/05/20 04:00 95 - Problem List & Annotations (1) Cellulitis of left leg SNOMED Code(s): 925298838 Code(s): L03.116 - CELLULITIS OF LEFT LOWER LIMB Status: Acute Priority: High Current Visit: Yes (2) Chronic acquired lymphedema SNOMED Code(s): 69268608 Code(s): I89.0 - LYMPHEDEMA, NOT ELSEWHERE CLASSIFIED Status: Acute Priority: High Current Visit: Yes - Problem List Review Problem List Initiated/Reviewed/Updated: Yes - My Orders Last 24 Hours: My Active Orders 06/05/20 09:15 Levofloxacin/Dextrose 5%-Water [Levaquin in D5W 500 MG/100 ML] 500 mg Premix Bag 1 bag IV DAILY@0800 06/06/20 05:11 BASIC METABOLIC PANEL,BMP [CHEM] AM C-REACTIVE PROTEIN [CHEM] AM CBC WITH AUTO DIFF [HEME] AM - Assessment Assessment:: LLE Cellulitis - Plan Plan:: Patient's leg unchanged since last evening. Continues to be red, warm and draining serous fluid. "does ache". Complains of a headache and sinus congestion today. Did have negative COVID test last night that was negative. Labs today show normal WBC. CRP is still high at 20.8. Low grade temp. 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 Will add Vancomycin this am. Ibuprofen for her headache, Toradol if needed. Repeat labs in am. 06-03-2020 Patient states leg feeling better this am, less discomfort. Redness is somewhat improved from yesterday in comparison to the skin markings. Still draining a large amount of serous drainage. Edema still 4+. Still complaining of a headache yet. Did spike a fever last night. Patient has been resistant to IV Lasix, concerned about "not getting to the bathroom in time". Explained importance of this for the patient due to significant edema in her legs and inability to control the infection and recurrence of it without reducing the edema. WBC is still normal. CRP high at 20.2. wound culture is negative on day 1. Again talked about the compression devices. had been advised to discuss those with [facility] after her last admission in February as PT is unable to provide those for her. She admits she had the note but forgot to discuss it with them. Will continue IV vancomycin and Rocephin. Repeat labs in am. 06-04-2020 Patient's leg is slowly improving. She has been more compliant with lying in bed, edema is improved. Upper thigh is noting blisters now. Still remains warm and red. Only low grade fevers the last 24 hours. Labs are improving. WBC normal, CRP down to 12. Culture is growing gram negative rods, gram positive cocci, streptococcus group C. Patient will go to [facility] to have a PICC line placed today due to manager speech need of IV antibiotics for this and difficulty maintaining an IV line. Encouraged to continue to keep legs elevated. Await full culture sensitivities, continue IV Rocephin and Vancomycin at this time. 06-05-2020 Patient is resting in chair eating breakfast. Appetite has been good. Low grade temp of 99.8 yesterday afternoon. Overall, leg redness, warmth and swelling have improved. Patient has been advised by myself, nursing staff and PT that she needs to be resting more in the bed and keeping legs elevated versus sitting in the recliner. Labs are improving. WBC is normal, CRP is 7.1. PICC line was placed yesterday in [place]. wound culture grows out A Baumanii Haemolyticus, Streptococcus Group C and staph aureus, all sensitive to Levaquin. Will switch to IV Levaquin daily. Stop Vancomycin and Rocephin. As patient historically has not been compliant at home with her Lasix use and keeping legs elevated to control the edema, do feel it would be best to keep her here to monitor edema status, infection status and continue IV antibiotics. Reevaluate in am.
[2020-06-05] MEDS: Acetaminophen 325 MG Tab PO PRN (17:14)
[2020-06-05] MEDS: Gabapentin 300 MG Cap PO SCH (19:36)
[2020-06-05] MEDS: Simvastatin 20 MG Tab PO SCH (19:37)
[2020-06-05] MEDS: Enoxaparin 40 MG/0.4 ML Syringe SUBCUT SCH (20:38)
[2020-06-05] MEDS: Ibuprofen 200 MG Tab PO PRN (20:39)
[2020-06-06] MEDS: Ibuprofen 200 MG Tab PO PRN (02:27)
[2020-06-06] MEDS: Pantoprazole 40 MG Tab.CR PO SCH (06:13)
[2020-06-06 07:14] LABS: CHLORIDE,CL 107 mEq/L (98-106); SODIUM,NA 142 mEq/L (136-145)
[2020-06-06] MEDS: Pregabalin 25 MG Cap PO SCH (07:43)
[2020-06-06] MEDS: rOPINIRole 1 MG Tab PO SCH (07:44)
[2020-06-06] MEDS: Estradiol 1 MG Tab PO SCH (07:44)
[2020-06-06] MEDS: Aspirin 81 MG Tab.EC PO SCH (07:44)
[2020-06-06] MEDS: Gabapentin 100 MG Cap PO SCH (07:44)
[2020-06-06] MEDS: Furosemide 40 MG/4 ML VIAL IVPUSH SCH (07:44)
[2020-06-06] MEDS: Citalopram 10 MG Tab PO SCH (07:44)
[2020-06-06] MEDS: Ferrous Sulfate 324 MG Tab.EC PO SCH (07:44)
[2020-06-06] MEDS: Levofloxacin/Dextrose 5%-Water 500 MG in Premix Bag 1 BAG IV SCH (07:46)
[2020-06-06 08:44] VITALS: BP 132/57; PULSE 78
--- NOTE | 2020-06-06 11:27 | PCM.DCSUM1 ---
Discharge Summary - Hospital Course Free Text/Narrative:: Barbara is a 49 year old female who presented to ER with complaints of increased redness and warmth to left leg. Has history of venous stasis and has had cellulitis many times. She has had low grade fevers. States noted the redness to get much worse over the course of the day and is spreading up her thigh, which it has not done in the past. Has chronic drainage from her legs. Ongoing chronic edema. Wraps her legs daily. Was hospitalized in February for same. Was advised to have wound care address possibility of compression devices but has not yet done so. WBC 10.5. CRP 20.9. Admitted and started on IV Rocephin as culture in February was sensitive to that. Diagnosis: Stroke: No Modified [place] Scale: No Symptoms at All Modified [place] Scale Score: 0 - Discharge Data Discharge Date: 06/06/20 Discharge Disposition: DC/Tfer W/I Hosp To Swing [facility] Condition: Good - Referral to Home Health Primary Care Physician: TONY Ferris - Discharge Diagnosis/Problem(s) (1) Cellulitis of left leg SNOMED Code(s): 345871794 ICD Code: L03.116 - CELLULITIS OF LEFT LOWER LIMB Status: Acute Priority: High (2) Chronic acquired lymphedema SNOMED Code(s): 37372898 ICD Code: I89.0 - LYMPHEDEMA, NOT ELSEWHERE CLASSIFIED Status: Acute Priority: High - Patient Summary/Data Complications: none Consults: Consultations 06/01/20 21:22 PT Evaluation and Treatment [CONS] Routine Hospital Course: Patient is slowly showing improvement. Leg had significant edema, redness and warmth up to her left groin on admit. Areas of redness are improving, much less warmth and edema is down. Has been strongly encouraged to be in bed with legs elevated versus sitting much of the day in recliner. Continues to have burning sensation to inner left thigh and knee region. Did spike temps up to 101 but has been afebrile now for greater than 24 hours. WBC is normal. CRP is trending down, today 4.5. Did add Vancomycin on day 1 for better gram positive coverage. Culture did show A Baumannii/Haemolyticus, streptococcus group C, staph aureus. Vancomycin and Rocephin stopped as all sensitive for Levaquin. Due to history of noncompliance with Lasix and leg elevation at home, will transfer to [facility] for IV antibiotics and wound cares. - Patient Instructions Diet: Usual Diet as Tolerated Activity: As Tolerated - Discharge Plan *PRESCRIPTION DRUG MONITORING PROGRAM REVIEWED*: No *COPY OF PRESCRIPTION DRUG MONITORING REPORT IN PATIENT NATA: No Home Medications: Home Meds Albuterol [IJD: Ventolin HFA] 1 - 2 puff INH Q4H PRN 01/14/16 [History] Albuterol/Ipratropium [DuoNeb 3.0-0.5 MG/3 ML] 3 ml NEB Q4HRRT PRN 01/14/16 [History] Aspirin [Halfprin] 81 mg PO DAILY 01/14/16 [History] Furosemide [Lasix] 40 mg PO BID 01/14/16 [History] Simvastatin 20 mg PO BEDTIME 01/14/16 [History] estradioL [Estradiol] 1 mg PO DAILY 01/14/16 [History] rOPINIRole HCl [Ropinirole HCl] 4 mg PO BEDTIME 01/14/16 [History] Ferrous Sulfate [Iron] 325 mg PO DAILY 01/23/16 [History] Pantoprazole Sodium 40 mg PO DAILY 01/23/16 [History] Glucosamine/Chondroitn/C/Steve [Glucosamine-Chondr Complex] 1 each PO DAILY 02/16/19 [History] Pregabalin [Lyrica] 75 mg PO BID 02/16/19 [History] Escitalopram [Lexapro] 10 mg PO DAILY 03/10/20 [History] Gabapentin [Neurontin] 100 mg PO ASDIRECTED 03/10/20 [History] hydrOXYzine HCL [Hydroxyzine HCl] 50 mg PO TID PRN 03/10/20 [History] rOPINIRole [Requip] 0.5 tab PO ASDIRECTED 03/10/20 [History] Forms: ED Department Discharge Referrals: Apple Mae PA [Primary Care Provider] - - Discharge Summary/Plan Comment DC Time >30 min.: No - General Info Date of Service: 06/06/20 Admission Dx/Problem (Free Text: Cellulitis of LLE Functional Status: Reports: Pain Controlled, Tolerating Diet, Ambulating - Review of Systems General: Reports: Malaise. Denies: Fever, Chills HEENT: Reports: No Symptoms Pulmonary: Denies: Shortness of Breath, Cough Cardiovascular: Reports: Edema. Denies: Chest Pain, Lightheadedness Gastrointestinal: Denies: Abdominal Pain, Decreased Appetite, Nausea, Vomiting Genitourinary: Reports: No Symptoms Musculoskeletal: Reports: Leg Pain Skin: Reports: Other (redness, open areas with serous drainage ) Neurological: Reports: No Symptoms - Patient Data Vitals - Most Recent: Last Vital Signs Temp 97.3 F 06/06/20 08:00 Pulse 78 06/06/20 08:00 Resp 20 06/06/20 08:00 BP 132/57 L 06/06/20 08:00 Pulse Ox 97 06/06/20 08:00 Weight - Most Recent: 352 lb I&O - Last 24 hours: Intake & Output 06/05/20 06/06/20 06/06/20 22:59 06:59 14:59 Intake Total 2186 440 Output Total 2500 650 Balance -314 -210 Lab Results - Last 24 hrs: Laboratory Results - last 24 hr 06/06/20 06/06/20 Range/Units 06:55 06:55 WBC 6.3 (5.0-10.0) 10^3/uL RBC 3.84 L (4.00-5.50) 10^6/uL Hgb 11.7 L (12.0-16.0) g/dL Hct 35.7 L (37.0-47.0) % MCV 93.0 (82.0-94.0) fL MCH 30.5 (27.0-32.0) pg MCHC 32.8 L (33.0-38.0) g/dL RDW Coeff of Debi 13.1 (11.0-15.0) % Plt Count 287 (150-400) 10^3/uL Neut % (Auto) 51.9 (35-85) % Lymph % (Auto) 29.9 (10-55) % [place] % (Auto) 11.7 (0-16) % Eos % (Auto) 6.0 H (0-5) % Baso % (Auto) 0.5 (0-3) % Neut # (Auto) 3.28 (1.80-7.00) 10^3/uL Lymph # (Auto) 1.89 (1.00-4.80) 10^3/uL [place] # (Auto) 0.74 (0.00-0.80) 10^3/uL Eos # (Auto) 0.38 (0.00-0.45) 10^3/uL Baso # (Auto) 0.03 10^3/uL Sodium 142 (136-145) mEq/L Potassium 3.8 (3.5-5.0) mEq/L Chloride 107 H (98-106) mEq/L Carbon Dioxide 28 (21-32) mmol/L BUN 14 (7-18) mg/dL Creatinine 0.7 (0.6-1.0) mg/dL Est Cr Clr Drug Dosing 100.48 mL/min Estimated GFR (MDRD) > 60 (>=60) mL/min Glucose 121 H (75-99) mg/dL Calcium 8.2 L (8.4-10.1) mg/dL C-Reactive Protein 4.5 H (0.2-0.8) mg/dL GAYLA Results - Last 24 hrs: Microbiology 06/01/20 20:15 Aerobic Blood Culture - Preliminary Blood - Venous - Lab Draw NO GROWTH AFTER 4 DAYS Anaerobic Blood Culture - Preliminary NO GROWTH AFTER 4 DAYS 06/01/20 20:05 Aerobic Blood Culture - Preliminary Blood - Venous NO GROWTH AFTER 4 DAYS Anaerobic Blood Culture - Preliminary NO GROWTH AFTER 4 DAYS 06/01/20 21:00 Wound Culture - Final Skin / Skin Scrapings - Leg, Left A Baumannii/Haemolyticus Streptococcus Group C Staphylococcus Aureus Med Orders - Current: Current Medications Acetaminophen (Tylenol) 650 mg PO Q4H PRN PRN Reason: Pain (Mild 1-3)/fever Last Admin: 06/05/20 17:14 Dose: 650 mg Documented by: Albuterol (Ventolin Hfa) 1 - 2 gm INH Q4H PRN PRN Reason: Shortness of Breath Albuterol/Ipratropium (Duoneb 3.0-0.5 Mg/3 Ml) 3 ml NEB Q4H PRN PRN Reason: Shortness of Breath Aspirin (Halfprin) 81 mg PO DAILY [facility] Last Admin: 06/06/20 07:44 Dose: 81 mg Documented by: Citalopram Hydrobromide (Celexa) 10 mg PO DAILY [facility] Last Admin: 06/06/20 07:44 Dose: 10 mg Documented by: Enoxaparin Sodium (Lovenox) 40 mg SUBCUT Q24H [facility] Last Admin: 06/05/20 20:38 Dose: 40 mg Documented by: Estradiol (Estradiol) 1 mg PO DAILY [facility] Last Admin: 06/06/20 07:44 Dose: 1 mg Documented by: Ferrous Sulfate (Ferrous Sulfate) 324 mg PO DAILY [facility] Last Admin: 06/06/20 07:44 Dose: 324 mg Documented by: Furosemide (Lasix) 40 mg IVPUSH Q24H [facility] Last Admin: 06/06/20 07:44 Dose: 40 mg Documented by: Gabapentin (Neurontin) 100 mg PO BID@0800,1600 [facility] Last Admin: 06/06/20 07:44 Dose: 100 mg Documented by: Gabapentin (Neurontin) 300 mg PO BEDTIME [facility] Last Admin: 06/05/20 19:36 Dose: 300 mg Documented by: Heparin Sodium (Porcine) (Heparin Lock Flush 100 Units/Ml) 300 units FLUSH DAILY PRN PRN Reason: Other Last Admin: 06/05/20 08:48 Dose: 300 units Documented by: Heparin Sodium (Porcine) (Heparin Lock Flush 100 Units/Ml) 300 units FLUSH DAILY@0800 [facility] Last Admin: 06/06/20 07:45 Dose: 300 units Documented by: Hydroxyzine HCl (Atarax) 50 mg PO TID PRN PRN Reason: Itching Levofloxacin/Dextrose 500 mg/ (Premix) 100 mls @ 100 mls/hr IV DAILY@0800 [facility] Last Admin: 06/06/20 07:46 Dose: 100 mls/hr Documented by: Ibuprofen (Motrin) 400 mg PO Q6H PRN PRN Reason: Headache Last Admin: 06/06/20 02:27 Dose: 400 mg Documented by: Ketorolac Tromethamine (Toradol) 30 mg IVPUSH Q6H PRN PRN Reason: Headache Stop: 06/07/20 11:12 Last Admin: 06/02/20 22:31 Dose: 30 mg Documented by: Ondansetron HCl (Zofran Odt) 4 mg PO Q4H PRN PRN Reason: nausea, able to take PO Pantoprazole Sodium (Protonix) 40 mg PO ACBREAKFAST [facility] Last Admin: 06/06/20 06:13 Dose: 40 mg Documented by: Pregabalin (Lyrica) 75 mg PO BID [facility] Last Admin: 06/06/20 07:43 Dose: 75 mg Documented by: Ropinirole HCl (Requip) 1 mg PO BID@0800,1600 [facility] Last Admin: 06/06/20 07:44 Dose: 1 mg Documented by: Ropinirole HCl (Requip) 4 mg PO BEDTIME [facility] Last Admin: 06/05/20 19:37 Dose: 4 mg Documented by: Simvastatin (Zocor) 20 mg PO BEDTIME [facility] Last Admin: 06/05/20 19:37 Dose: 20 mg Documented by: Sodium Chloride (Saline Flush) 10 ml FLUSH ASDIRECTED PRN PRN Reason: Keep Vein Open Temazepam (Restoril) 15 mg PO BEDTIME PRN PRN Reason: Sleep Discontinued Medications Ceftriaxone Sodium (Rocephin) 2 gm IVPUSH Q24H [facility] Last Admin: 06/04/20 21:16 Dose: 2 gm Documented by: Furosemide (Lasix) 40 mg IVPUSH Q24H [facility] Last Admin: 06/02/20 12:53 Dose: 40 mg Documented by: Heparin Sodium (Porcine) (Heparin Lock Flush 100 Units/Ml) 300 units FLUSH 0400,1600 [facility] Last Admin: 06/05/20 03:54 Dose: 300 units Documented by: Vancomycin HCl 2 gm/ Premix 400 mls @ 200 mls/hr IV Q12H [facility] Last Admin: 06/04/20 02:56 Dose: 200 mls/hr Documented by: Vancomycin HCl 2 gm/ Premix 400 mls @ 200 mls/hr IV Q12H [facility] Last Admin: 06/05/20 03:52 Dose: 200 mls/hr Documented by: Non-Formulary Medication (Glucosamine/Chondroitn/C/Steve [Glucosamine-Chondr Complex]) 1 each PO DAILY [facility] Last Admin: 06/03/20 11:14 Dose: Not Given Documented by: Non-Formulary Medication (Ropinirole [Requip]) 0.5 tab PO ASDIRECTED [facility] Pregabalin (Lyrica) 75 mg PO BID [facility] Ropinirole HCl (Requip) 4 mg PO BEDTIME [facility] Simvastatin (Zocor) 20 mg PO BEDTIME [facility] Vancomycin HCl (Pharmacy To Dose - Vancomycin) 1 dose .XX ASDIRECTED [facility] - Exam General: Reports: Alert, Oriented HEENT: Reports: Mucous Membr. Moist/[place] Neck: Reports: Supple Lungs: Reports: Clear to Auscultation, Normal Respiratory Effort Cardiovascular: Reports: Regular Rate, Regular Rhythm GI/Abdominal Exam: Normal Bowel Sounds, Soft, Non-Tender Extremities: Pedal Edema (edema 3+ to LLE, redness to thigh is improving with less warmth. Continues to drain a large amount of serous drainage. )
== END 2020-06-06 11:29 | disposition swing bed (61) | DRG 603 ==
LOC: CC.ED 19:49 → CC.MS 21:00 → UNDOADMIN 21:00 → CC.MS 21:10
PROVIDERS: ADMIT Physician Assistant Medical; ATTEND Family Medicine
DX: L03.116 Cellulitis of left lower limb (principal); I89.0 Lymphedema, not elsewhere classified; J45.909 Unspecified asthma, uncomplicated; B95.4 Other streptococcus as the cause of diseases classified elsewhere; B96.89 Other specified bacterial agents as the cause of diseases classified elsewhere; R51.9 Headache, unspecified; Z20.828 Contact with and (suspected) exposure to other viral communicable diseases; Z88.1 Allergy status to other antibiotic agents; Z88.0 Allergy status to penicillin; Z88.2 Allergy status to sulfonamides; Z91.040 Latex allergy status; Z91.013 Allergy to seafood; Z91.018 Allergy to other foods; Z79.82 Long term (current) use of aspirin; Z79.899 Other long term (current) drug therapy; Z90.710 Acquired absence of both cervix and uterus; Z91.14 Patient's other noncompliance with medication regimen
CPT/HCPCS: 36415; 80048; 80053; 80202; 83605; 83735; 85025; 86140; 87040; 87070; 87077; 87186; 97161-GP; 97597-GP; 99284; A0425; A0428; A9270-GY; J0696; J1642; J1650; J1885; J1940; J1956; J3370; U0002

== ENCOUNTER 2020-06-06 11:21 | Inpatient (IN) | payer OTHER ==
[2020-06-06] MEDS ORDERED: Albuterol 8 GM Inhaler INH PRN (11:42)
[2020-06-06] MEDS ORDERED: Ketorolac 30 MG/ML SDV IVPUSH PRN (11:42)
[2020-06-06] MEDS ORDERED: Albuterol/Ipratropium 3.0-0.5 MG/3 ML Neb Soln NEB PRN (11:42)
[2020-06-06] MEDS ORDERED: Sodium Chloride 0.9% 10 ML Syringe FLUSH PRN ×2 (11:42)
[2020-06-06] MEDS ORDERED: Acetaminophen 325 MG Tab PO PRN (11:42)
[2020-06-06] MEDS ORDERED: hydrOXYzine HCl 25 MG Tab PO PRN (11:42)
[2020-06-06] MEDS ORDERED: Ondansetron 4 MG Tab.DIS PO PRN (11:42)
[2020-06-06] MEDS: rOPINIRole 1 MG Tab PO SCH ×2 (16:56→19:58)
[2020-06-06] MEDS: Gabapentin 100 MG Cap PO SCH (16:56)
[2020-06-06] MEDS: Pregabalin 25 MG Cap PO SCH (19:59)
[2020-06-06] MEDS: Enoxaparin 40 MG/0.4 ML Syringe SUBCUT SCH (20:00)
[2020-06-06] MEDS: Simvastatin 20 MG Tab PO SCH (20:00)
[2020-06-06] MEDS: Gabapentin 300 MG Cap PO SCH (20:00)
[2020-06-06] MEDS: Temazepam 15 MG Cap PO PRN (22:30)
[2020-06-06] MEDS: Ibuprofen 200 MG Tab PO PRN (22:30)
[2020-06-07] MEDS: Pantoprazole 40 MG Tab.CR PO SCH (06:46)
[2020-06-07] MEDS: Estradiol 1 MG Tab PO SCH (07:49)
[2020-06-07] MEDS: rOPINIRole 1 MG Tab PO SCH ×3 (07:49→19:26)
[2020-06-07] MEDS: Levofloxacin/Dextrose 5%-Water 500 MG in Premix Bag 1 BAG IV SCH (07:49)
[2020-06-07] MEDS: Aspirin 81 MG Tab.EC PO SCH (07:49)
[2020-06-07] MEDS: Citalopram 10 MG Tab PO SCH (07:50)
[2020-06-07] MEDS: Furosemide 40 MG/4 ML VIAL IVPUSH SCH (07:50)
[2020-06-07] MEDS: Gabapentin 100 MG Cap PO SCH ×2 (07:50→16:12)
[2020-06-07] MEDS: Ferrous Sulfate 324 MG Tab.EC PO SCH (07:50)
[2020-06-07] MEDS: Pregabalin 25 MG Cap PO SCH ×2 (07:50→19:26)
[2020-06-07] MEDS: Ibuprofen 200 MG Tab PO PRN (14:11)
[2020-06-07] MEDS: Enoxaparin 40 MG/0.4 ML Syringe SUBCUT SCH (19:26)
[2020-06-07] MEDS: Gabapentin 300 MG Cap PO SCH (19:26)
[2020-06-07] MEDS: Simvastatin 20 MG Tab PO SCH (19:27)
[2020-06-08] MEDS: Temazepam 15 MG Cap PO PRN ×2 (00:08→20:01)
[2020-06-08] MEDS: Ibuprofen 200 MG Tab PO PRN ×3 (00:08→20:00)
[2020-06-08] MEDS: Estradiol 1 MG Tab PO SCH (08:53)
[2020-06-08] MEDS: Pregabalin 25 MG Cap PO SCH ×2 (08:53→19:55)
[2020-06-08] MEDS: Citalopram 10 MG Tab PO SCH (08:53)
[2020-06-08] MEDS: Gabapentin 100 MG Cap PO SCH ×2 (08:53→16:59)
[2020-06-08] MEDS: Aspirin 81 MG Tab.EC PO SCH (08:53)
[2020-06-08] MEDS: rOPINIRole 1 MG Tab PO SCH ×3 (08:54→19:55)
[2020-06-08] MEDS: Ferrous Sulfate 324 MG Tab.EC PO SCH (08:54)
[2020-06-08] MEDS: Pantoprazole 40 MG Tab.CR PO SCH (08:54)
[2020-06-08] MEDS: Furosemide 40 MG/4 ML VIAL IVPUSH SCH (08:55)
[2020-06-08] MEDS: Levofloxacin/Dextrose 5%-Water 500 MG in Premix Bag 1 BAG IV SCH (08:57)
[2020-06-08] MEDS: Enoxaparin 40 MG/0.4 ML Syringe SUBCUT SCH (19:55)
[2020-06-08] MEDS: Simvastatin 20 MG Tab PO SCH (19:55)
[2020-06-08] MEDS: Gabapentin 300 MG Cap PO SCH (19:55)
[2020-06-09] MEDS: Ibuprofen 200 MG Tab PO PRN ×3 (04:17→20:13)
[2020-06-09] MEDS: Furosemide 40 MG/4 ML VIAL IVPUSH SCH (07:43)
[2020-06-09] MEDS: Estradiol 1 MG Tab PO SCH (07:43)
[2020-06-09] MEDS: Ferrous Sulfate 324 MG Tab.EC PO SCH (07:43)
[2020-06-09] MEDS: Pregabalin 25 MG Cap PO SCH ×2 (07:43→19:57)
[2020-06-09] MEDS: Gabapentin 100 MG Cap PO SCH ×2 (07:43→16:34)
[2020-06-09] MEDS: Citalopram 10 MG Tab PO SCH (07:43)
[2020-06-09] MEDS: Aspirin 81 MG Tab.EC PO SCH (07:43)
[2020-06-09] MEDS: Pantoprazole 40 MG Tab.CR PO SCH (07:43)
[2020-06-09] MEDS: rOPINIRole 1 MG Tab PO SCH ×3 (07:43→19:57)
[2020-06-09] MEDS: Levofloxacin/Dextrose 5%-Water 500 MG in Premix Bag 1 BAG IV SCH (07:44)
[2020-06-09] MEDS: Gabapentin 300 MG Cap PO SCH (19:58)
[2020-06-09] MEDS: Enoxaparin 40 MG/0.4 ML Syringe SUBCUT SCH (19:58)
[2020-06-09] MEDS: Simvastatin 20 MG Tab PO SCH (19:58)
[2020-06-09] MEDS: Temazepam 15 MG Cap PO PRN (20:14)
[2020-06-10] MEDS: Ferrous Sulfate 324 MG Tab.EC PO SCH (08:29)
[2020-06-10] MEDS: Pregabalin 25 MG Cap PO SCH ×2 (08:30→19:37)
[2020-06-10] MEDS: Aspirin 81 MG Tab.EC PO SCH (08:30)
[2020-06-10] MEDS: Citalopram 10 MG Tab PO SCH (08:30)
[2020-06-10] MEDS: Gabapentin 100 MG Cap PO SCH ×2 (08:31→16:45)
[2020-06-10] MEDS: Estradiol 1 MG Tab PO SCH (08:32)
[2020-06-10] MEDS: Pantoprazole 40 MG Tab.CR PO SCH (08:32)
[2020-06-10] MEDS: rOPINIRole 1 MG Tab PO SCH ×3 (08:32→19:36)
[2020-06-10] MEDS: Furosemide 40 MG/4 ML VIAL IVPUSH SCH (08:32)
[2020-06-10] MEDS: Levofloxacin/Dextrose 5%-Water 500 MG in Premix Bag 1 BAG IV SCH (08:33)
[2020-06-10] MEDS: Ibuprofen 200 MG Tab PO PRN (16:43)
[2020-06-10] MEDS: Simvastatin 20 MG Tab PO SCH (19:36)
[2020-06-10] MEDS: Gabapentin 300 MG Cap PO SCH (19:36)
[2020-06-10] MEDS: Enoxaparin 40 MG/0.4 ML Syringe SUBCUT SCH (19:37)
[2020-06-10] MEDS: Temazepam 15 MG Cap PO PRN (21:30)
[2020-06-11] MEDS: Ibuprofen 200 MG Tab PO PRN (02:08)
[2020-06-11] MEDS: Furosemide 40 MG/4 ML VIAL IVPUSH SCH (07:57)
[2020-06-11] MEDS: Citalopram 10 MG Tab PO SCH (07:57)
[2020-06-11] MEDS: Estradiol 1 MG Tab PO SCH (07:57)
[2020-06-11] MEDS: Aspirin 81 MG Tab.EC PO SCH (07:57)
[2020-06-11] MEDS: rOPINIRole 1 MG Tab PO SCH (07:57)
[2020-06-11] MEDS: Pantoprazole 40 MG Tab.CR PO SCH (07:57)
[2020-06-11] MEDS: Pregabalin 25 MG Cap PO SCH (07:57)
[2020-06-11] MEDS: Gabapentin 100 MG Cap PO SCH (07:57)
[2020-06-11] MEDS: Levofloxacin/Dextrose 5%-Water 500 MG in Premix Bag 1 BAG IV SCH (07:58)
[2020-06-11] MEDS: Ferrous Sulfate 324 MG Tab.EC PO SCH (07:58)
[2020-06-11 08:02] VITALS: BP 131/69; PULSE 75
--- NOTE | 2020-06-11 21:15 | PCM.DCSUM1 ---
Discharge Summary - Hospital Course Free Text/Narrative:: Barbara is a 49 year old female who initially presented to the ER with complaints of increasing redness, warmth and pain in the left leg. She had noted significant increase in swelling and drainage. Had been experiencing low grade fevers. WBC was mildly elevated at 10.5 on admit to acute, has normalized. CRP did peak at 20.9, has improved a great deal down to 4. Wound culture did grow A Baumaunii/haemolyticus, streptococcus C and staph aureus. Was initially started on Rocephin and Vancomycin. As all strains were covered with Levaquin, switched to IV Levaquin. Due to meds and elevation, her leg has improved significantly. Was transferred to swing bed for ongoing IV antibiotics and wound cares. Diagnosis: Stroke: No Modified [place] Scale: No Symptoms at All Modified [place] Scale Score: 0 - Discharge Data Discharge Date: 06/11/20 Discharge Disposition: Home, Self-Care 01 Condition: Fair - Referral to Home Health Primary Care Physician: Danita Mojica PA-C - Patient Summary/Data Complications: none Consults: Consultations 06/06/20 11:42 PT Evaluation and Treatment [CONS] Routine Hospital Course: Patient has shown significant improvement with her cellulitis. Leg is much less red, less warmth. Edema has improved. Afebrile. CRP has continued to improve. Is ambulating about, tolerating well. Elevating legs to contain edema. Was to [place] to have a PICC line placed and has tolerated well. Will be removed today as we will discharge her home on oral Levaquin. Discussed compression devices again with patient and advised to discuss with her wound care clinic. - Patient Instructions Diet: Usual Diet as Tolerated Activity: As Tolerated - Discharge Plan *PRESCRIPTION DRUG MONITORING PROGRAM REVIEWED*: No *COPY OF PRESCRIPTION DRUG MONITORING REPORT IN PATIENT NATA: No Prescriptions/Med Rec: Levofloxacin [Levaquin] 500 mg PO DAILY #7 tablet Home Medications: Home Meds Albuterol [IJD: Ventolin HFA] 1 - 2 puff INH Q4H PRN 01/14/16 [History] Albuterol/Ipratropium [DuoNeb 3.0-0.5 MG/3 ML] 3 ml NEB Q4HRRT PRN 01/14/16 [History] Aspirin [Halfprin] 81 mg PO DAILY 01/14/16 [History] Furosemide [Lasix] 40 mg PO BID 01/14/16 [History] Simvastatin 20 mg PO BEDTIME 01/14/16 [History] estradioL [Estradiol] 1 mg PO DAILY 01/14/16 [History] rOPINIRole HCl [Ropinirole HCl] 4 mg PO BEDTIME 01/14/16 [History] Ferrous Sulfate [Iron] 325 mg PO DAILY 01/23/16 [History] Pantoprazole Sodium 40 mg PO DAILY 01/23/16 [History] Glucosamine/Chondroitn/C/Steve [Glucosamine-Chondr Complex] 1 each PO DAILY 02/16/19 [History] Pregabalin [Lyrica] 75 mg PO BID 02/16/19 [History] Escitalopram [Lexapro] 10 mg PO DAILY 03/10/20 [History] Gabapentin [Neurontin] 100 mg PO ASDIRECTED 03/10/20 [History] hydrOXYzine HCL [Hydroxyzine HCl] 50 mg PO TID PRN 03/10/20 [History] rOPINIRole [Requip] 0.5 tab PO ASDIRECTED 03/10/20 [History] Levofloxacin [Levaquin] 500 mg PO DAILY #7 tablet 06/11/20 [Rx] Referrals: Apple Mae PA [ED Midlevel Provider] - (Follow up with [facility] in 10 days) - Discharge Summary/Plan Comment DC Time >30 min.: No - General Info Date of Service: 06/11/20 Admission Dx/Problem (Free Text: Cellulitis Functional Status: Reports: Pain Controlled, Ambulating - Review of Systems General: Reports: Malaise. Denies: Fever, Weakness, Fatigue HEENT: Reports: No Symptoms Pulmonary: Denies: Shortness of Breath, Cough Cardiovascular: Reports: Edema. Denies: Chest Pain, Lightheadedness Gastrointestinal: Reports: No Symptoms Genitourinary: Reports: No Symptoms Musculoskeletal: Reports: Leg Pain Skin: Reports: Other (redness, warmth and edema is much improved ) Neurological: Reports: No Symptoms - Patient Data Vitals - Most Recent: Last Vital Signs Temp 98 F 06/11/20 08:00 Pulse 75 06/11/20 08:00 Resp 16 06/11/20 08:00 BP 131/69 06/11/20 08:00 Pulse Ox 95 06/11/20 08:00 Weight - Most Recent: 352 lb Med Orders - Current: Current Medications Discontinued Medications Acetaminophen (Tylenol) 650 mg PO Q4H PRN PRN Reason: Pain (Mild 1-3)/fever Albuterol (Ventolin Hfa) 1 - 2 gm INH Q4H PRN PRN Reason: Shortness of Breath Albuterol/Ipratropium (Duoneb 3.0-0.5 Mg/3 Ml) 3 ml NEB Q4H PRN PRN Reason: Shortness of Breath Aspirin (Halfprin) 81 mg PO DAILY [facility] Last Admin: 06/11/20 07:57 Dose: 81 mg Documented by: Citalopram Hydrobromide (Celexa) 10 mg PO DAILY [facility] Last Admin: 06/11/20 07:57 Dose: 10 mg Documented by: Enoxaparin Sodium (Lovenox) 40 mg SUBCUT DAILY@2000 [facility] Last Admin: 06/10/20 19:37 Dose: 40 mg Documented by: Estradiol (Estradiol) 1 mg PO DAILY [facility] Last Admin: 06/11/20 07:57 Dose: 1 mg Documented by: Ferrous Sulfate (Ferrous Sulfate) 324 mg PO DAILY [facility] Last Admin: 06/11/20 07:58 Dose: 324 mg Documented by: Furosemide (Lasix) 40 mg IVPUSH Q24H [facility] Last Admin: 06/11/20 07:57 Dose: 40 mg Documented by: Gabapentin (Neurontin) 100 mg PO BID@0800,1600 [facility] Last Admin: 06/11/20 07:57 Dose: 100 mg Documented by: Gabapentin (Neurontin) 300 mg PO BEDTIME [facility] Last Admin: 06/10/20 19:36 Dose: 300 mg Documented by: Heparin Sodium (Porcine) (Heparin Lock Flush 100 Units/Ml) 300 units FLUSH DAILY PRN PRN Reason: Other Heparin Sodium (Porcine) (Heparin Lock Flush 100 Units/Ml) 300 units FLUSH DAILY@0800 [facility] Last Admin: 06/11/20 07:58 Dose: 300 units Documented by: Hydroxyzine HCl (Atarax) 50 mg PO TID PRN PRN Reason: Itching Levofloxacin/Dextrose 500 mg/ (Premix) 100 mls @ 100 mls/hr IV DAILY@0800 [facility] Last Admin: 06/11/20 07:58 Dose: 100 mls/hr Documented by: Ibuprofen (Motrin) 400 mg PO Q6H PRN PRN Reason: Headache Last Admin: 06/11/20 02:08 Dose: 400 mg Documented by: Ketorolac Tromethamine (Toradol) 30 mg IVPUSH Q6H PRN PRN Reason: Headache Stop: 06/07/20 11:12 Ondansetron HCl (Zofran Odt) 4 mg PO Q4H PRN PRN Reason: nausea, able to take PO Pantoprazole Sodium (Protonix) 40 mg PO ACBREAKFAST [facility] Last Admin: 06/11/20 07:57 Dose: 40 mg Documented by: Pregabalin (Lyrica) 75 mg PO BID [facility] Last Admin: 06/11/20 07:57 Dose: 75 mg Documented by: Ropinirole HCl (Requip) 1 mg PO BID@0800,1600 [facility] Last Admin: 06/11/20 07:57 Dose: 1 mg Documented by: Ropinirole HCl (Requip) 4 mg PO BEDTIME [facility] Last Admin: 06/10/20 19:36 Dose: 4 mg Documented by: Simvastatin (Zocor) 20 mg PO BEDTIME [facility] Last Admin: 06/10/20 19:36 Dose: 20 mg Documented by: Sodium Chloride (Saline Flush) 10 ml FLUSH ASDIRECTED PRN PRN Reason: Keep Vein Open Sodium Chloride (Saline Flush) 10 ml FLUSH ASDIRECTED PRN PRN Reason: Keep Vein Open Last Admin: 06/10/20 08:32 Dose: 10 ml Documented by: Temazepam (Restoril) 15 mg PO BEDTIME PRN PRN Reason: Sleep Last Admin: 06/10/20 21:30 Dose: 15 mg Documented by: - Exam General: Reports: Alert, Oriented HEENT: Reports: Mucous Membr. Moist/[place] Neck: Reports: Supple Lungs: Reports: Clear to Auscultation, Normal Respiratory Effort Cardiovascular: Reports: Regular Rate, Regular Rhythm GI/Abdominal Exam: Normal Bowel Sounds, Soft, Non-Tender Extremities: Pedal Edema, Leg Pain, Increased Warmth, Redness Skin: Reports: Warm, Dry Neurological: Reports: No New Focal Deficit
== END 2020-06-11 14:10 | disposition home or self-care (01) | DRG 603 ==
LOC: CC.MS 11:23 → UNDOADMIN 11:36
PROVIDERS: ADMIT Physician Assistant Medical; ATTEND Family Medicine
PROC: 02HV33Z Insertion of Infusion Device into Superior Vena Cava, Percutaneous Approach (ICD-10-PCS; principal; 2020-06-06)
DX: L03.116 Cellulitis of left lower limb (principal); I89.0 Lymphedema, not elsewhere classified; Z79.899 Other long term (current) drug therapy; Z79.82 Long term (current) use of aspirin; Z91.19 Patient's noncompliance with other medical treatment and regimen; B95.61 Methicillin susceptible Staphylococcus aureus infection as the cause of diseases classified elsewhere; B95.4 Other streptococcus as the cause of diseases classified elsewhere
CPT/HCPCS: A9270-GY; J1642; J1650; J1940; J1956

== ENCOUNTER 2020-09-02 19:10 | Inpatient (IN) | payer OTHER ==
--- NOTE | 2020-09-02 19:51 | EDM.PDOC ---
ED HPI GENERAL MEDICAL PROBLEM - General Chief Complaint: Fever Stated Complaint: fever Time Seen by Provider: 09/02/20 19:50 Source of Information: Reports: Patient History Limitations: Reports: No Limitations - History of Present Illness INITIAL COMMENTS - FREE TEXT/NARRATIVE: Barbara is a 49 year old female who presents to the ED with c/o generalized malaise and fever. Reports she was feeling fine this morning when she woke up. As the day progressed she reports she started to feel "lousy". This evening she had temperature of 102. Upon arrival to ED temp is 103.7. She reports she is nauseated and has the chills. Reports she aches all over. Has some sinus congestion, which she has chronically. Does have some mild bilateral lower quadrant abdominal pain and low back pain. Otherwise no other symptoms. Denies any chest pain, shortness of breath, vomiting, diarrhea, urinary symptoms. She has chronic lymphedema and venous stasis of BLE. Has chronic weeping edema. Has been wrapping them and changing dressings twice daily. She does admit that her left leg hurts a little more than normal. Did not notice any changes this morning when she last changed dressings. She has been hospitalized numerous times with cellulitis. Onset: Today Onset Date: 09/02/20 Duration: Getting Worse Location: Reports: Generalized Quality: Reports: Ache Severity: Severe Associated Symptoms: Reports: Fever/Chills, Loss of Appetite, Malaise, Nausea/Vomiting (nausea, no vomiting). Denies: Confusion, Chest Pain, Cough, cough w sputum, Diaphoresis, Headaches, Rash, Seizure, Shortness of Breath, Syncope, Weakness Bilateral Lower Back Pain Score (Numeric/FACES): 7 - Related Data Allergies Allergy/AdvReac Type Severity Reaction Status Date / Time azithromycin [From Zithromax] Allergy Intermediate Diarrhea Verified 09/02/20 20:49 Penicillins Allergy Intermediate Hives Verified 09/02/20 20:49 strawberry Allergy Intermediate Mouth Sores Verified 09/02/20 20:49 Sulfa (Sulfonamide Allergy Intermediate Hives Verified 09/02/20 20:49 Antibiotics) calamine Allergy Blisters Verified 09/02/20 20:49 clindamycin Allergy Rash Verified 09/02/20 20:49 latex Allergy Blisters Verified 09/02/20 20:49 shellfish Allergy Severe Anaphylactic Uncoded 09/02/20 20:49 Shock nuts Allergy Intermediate Mouth Sores Uncoded 09/02/20 20:49 Home Meds: Home Meds Albuterol [IJD: Ventolin HFA] 1 - 2 puff INH Q4H PRN 01/14/16 [History] Albuterol/Ipratropium [DuoNeb 3.0-0.5 MG/3 ML] 3 ml NEB Q4HRRT PRN 01/14/16 [History] Aspirin [Halfprin] 81 mg PO DAILY 01/14/16 [History] Furosemide [Lasix] 40 mg PO BID 01/14/16 [History] Simvastatin 20 mg PO BEDTIME 01/14/16 [History] estradioL [Estradiol] 1 mg PO DAILY 01/14/16 [History] rOPINIRole HCl [Ropinirole HCl] 4 mg PO BEDTIME 01/14/16 [History] Ferrous Sulfate [Iron] 325 mg PO DAILY 01/23/16 [History] Pantoprazole Sodium 40 mg PO DAILY 01/23/16 [History] Glucosamine/Chondroitn/C/Steve [Glucosamine-Chondr Complex] 1 each PO DAILY 02/16/19 [History] Pregabalin [Lyrica] 75 mg PO BID 02/16/19 [History] Escitalopram [Lexapro] 10 mg PO DAILY 03/10/20 [History] Gabapentin [Neurontin] 100 mg PO ASDIRECTED 03/10/20 [History] hydrOXYzine HCL [Hydroxyzine HCl] 50 mg PO TID PRN 03/10/20 [History] rOPINIRole [Requip] 0.5 tab PO ASDIRECTED 03/10/20 [History] Levofloxacin [Levaquin] 500 mg PO DAILY #7 tablet 06/11/20 [Rx] Ibuprofen [Advil] 200 mg PO ASDIRECTED PRN 09/02/20 [History] Past Medical History Respiratory History: Reports: Asthma - Infectious Disease History Infectious Disease History: Reports: None - Past Surgical History HEENT Surgical History: Reports: Eye Surgery Female Surgical History: Reports: D&C, Hysterectomy Musculoskeletal Surgical History: Reports: Arthroscopic Knee Social & Family History - Family History Family Medical History: No Pertinent Family History - Tobacco Use Tobacco Use Status *Q: Never Tobacco User - Caffeine Use Caffeine Use: Reports: Soda Other Caffeine Use: occasional ED ROS GENERAL - Review of Systems Review Of Systems: See Below Constitutional: Reports: Fever, Chills, Malaise, Decreased Appetite HEENT: Reports: Rhinitis Respiratory: Denies: Shortness of Breath, Wheezing, Pleuritic Chest Pain, Cough, Sputum, Hemoptysis Cardiovascular: Reports: Edema (chronic BLE). Denies: Chest Pain, Dyspnea on Exertion, Lightheadedness, Syncope Endocrine: Reports: Fatigue GI/Abdominal: Reports: Abdominal Pain, Decreased Appetite, Nausea. Denies: Black Stool, Bloody Stool, Diarrhea, Vomiting : Reports: No Symptoms. Denies: Dysuria, Flank Pain, Frequency, Urgency Musculoskeletal: Reports: Leg Pain Skin: Reports: Wound, Change in Color (BLE more erythematous than baseline) Neurological: Reports: No Symptoms Psychiatric: Reports: No Symptoms Hematologic/Lymphatic: Reports: No Symptoms Immunologic: Reports: No Symptoms ED EXAM, SEPSIS - Physical Exam Exam: See Below Exam Limited By: No Limitations General Appearance: Alert, WD/WN, Mild Distress Eye Exam: Bilateral Eye: EOMI, Normal Fundi, Normal Inspection, PERRL Throat/Mouth: Normal Inspection, Normal Lips, Normal Teeth, Normal Gums, Normal Oropharynx, Normal Voice, No Airway Compromise Head: Atraumatic, Normocephalic Neck: Normal Inspection, Supple, Non-Tender, Full Range of Motion Respiratory/Chest: No Respiratory Distress, Lungs Clear, Normal Breath Sounds, No Accessory Muscle Use, Chest Non-Tender Cardiovascular: Normal Peripheral Pulses, No Gallop, No JVD, No Murmur, No Rub, Tachycardia Peripheral Pulses: 1+: Dorsalis Pedis (L), Dorsalis Pedis (R) GI/Abdominal Exam: Normal Bowel Sounds, Soft, Non-Tender, No Distention Back: Normal Inspection, Full Range of Motion. No: CVA Tenderness (L), CVA Tenderness (R) Extremities: Normal Capillary Refill, Leg Pain, Redness, Other (scattered open areas to BLE, edema, tenderness, moderate calor to BLE, weeping edema ) Neurological: Alert, Oriented, CN II-XII Intact, Normal Cognition, Normal Gait, Normal Reflexes, No Motor/Sensory Deficits Skin: Erythema (BLE, L>R), Increased Warmth (BLE, L>R) Course - Vital Signs Last Recorded V/S: Last Vital Signs Temp 100.6 F 09/02/20 20:49 Pulse 123 H 01/11/21 19:18 Resp 20 09/02/20 19:18 BP 143/65 H 09/02/20 19:18 Pulse Ox 95 09/02/20 19:18 - Orders/Labs/Meds Orders: Active Orders 24 hr Category Date Time Status Patient Status Manage Transfer [TRANSFER] Routine ADT 09/02/20 20:42 Active CULTURE BLOOD [BC] Stat Lab 09/02/20 20:09 Received UA W/MICROSCOPIC [URIN] Stat Lab 09/02/20 19:27 Ordered Lactated Ringers [Ringers, Lactated] 1,000 ml Med 09/02/20 20:30 Active IV ASDIRECTED Levofloxacin/Dextrose 5%-Water [Levaquin in D5W 500 MG/ Med 09/02/20 20:30 Active 100 ML] 500 mg Premix Bag 1 bag IV Q24H Blood Culture x2 Reflex Set [OM.PC] Stat Oth 09/02/20 19:27 Ordered Resuscitation Status Routine Resus Stat 09/02/20 20:42 Ordered Medication Orders Levofloxacin/Dextrose 500 mg/ (Premix) 100 mls @ 100 mls/hr IV Q24H ELVIA Last Admin: 09/02/20 20:32 Dose: 100 mls/hr Documented by: CLIFF Lactated Ringer's (Ringers, Lactated) 1,000 mls @ 125 mls/hr IV ASDIRECTED ELVIA Stop: 09/03/20 04:29 Last Admin: 09/02/20 20:32 Dose: 125 mls/hr Documented by: CLIFF Labs: Laboratory Tests 09/02/20 09/02/20 09/02/20 Range/Units 19:27 20:09 20:09 WBC 13.3 H (5.0-10.0) 10^3/uL RBC 4.71 (4.00-5.50) 10^6/uL Hgb 14.2 (12.0-16.0) g/dL Hct 42.7 (37.0-47.0) % MCV 90.7 (82.0-94.0) fL MCH 30.1 (27.0-32.0) pg MCHC 33.3 (33.0-38.0) g/dL RDW Coeff of Debi 12.2 (11.0-15.0) % Plt Count 273 (150-400) 10^3/uL Neut % (Auto) 90.1 H (35-85) % Lymph % (Auto) 5.3 L (10-55) % [place] % (Auto) 3.9 (0-16) % Eos % (Auto) 0.5 (0-5) % Baso % (Auto) 0.2 (0-3) % Neut # (Auto) 11.97 H (1.80-7.00) 10^3/uL Lymph # (Auto) 0.70 L (1.00-4.80) 10^3/uL [place] # (Auto) 0.52 (0.00-0.80) 10^3/uL Eos # (Auto) 0.06 (0.00-0.45) 10^3/uL Baso # (Auto) 0.02 10^3/uL PT 10.1 (9.3-11.4) SEC INR 1.00 (0.92-1.18) APTT 21.0 L (23.2-32.3) SEC D-Dimer, Quantitative 1.35 H (0.00-0.50) Sodium (136-145) mEq/L Potassium (3.5-5.0) mEq/L Chloride (98-106) mEq/L Carbon Dioxide (21-32) mmol/L BUN (7-18) mg/dL Creatinine (0.6-1.0) mg/dL Est Cr Clr Drug Dosing mL/min Estimated GFR (MDRD) (>=60) mL/min Glucose (75-99) mg/dL Lactic Acid (0.4-2.0) mmol/L Calcium (8.4-10.1) mg/dL Total Bilirubin (0.0-1.0) mg/dL AST (15-37) U/L ALT (12-78) U/L Alkaline Phosphatase (46-116) U/L Creatine Kinase (21-215) U/L Troponin I (0.00-0.06) ng/mL C-Reactive Protein (0.2-0.8) mg/dL NT-Pro-B Natriuret Pep (0-1000) pg/mL Total Protein (6.4-8.2) g/dL Albumin (3.4-5.0) g/dL SARS CoV-2 RNA Rapid KAROL Negative (NEGATIVE) 09/02/20 09/02/20 09/02/20 Range/Units 20:09 20:09 20:52 WBC (5.0-10.0) 10^3/uL RBC (4.00-5.50) 10^6/uL Hgb (12.0-16.0) g/dL Hct (37.0-47.0) % MCV (82.0-94.0) fL MCH (27.0-32.0) pg MCHC (33.0-38.0) g/dL RDW Coeff of Debi (11.0-15.0) % Plt Count (150-400) 10^3/uL Neut % (Auto) (35-85) % Lymph % (Auto) (10-55) % [place] % (Auto) (0-16) % Eos % (Auto) (0-5) % Baso % (Auto) (0-3) % Neut # (Auto) (1.80-7.00) 10^3/uL Lymph # (Auto) (1.00-4.80) 10^3/uL [place] # (Auto) (0.00-0.80) 10^3/uL Eos # (Auto) (0.00-0.45) 10^3/uL Baso # (Auto) 10^3/uL PT (9.3-11.4) SEC INR (0.92-1.18) APTT (23.2-32.3) SEC D-Dimer, Quantitative (0.00-0.50) Sodium 138 (136-145) mEq/L Potassium 4.3 (3.5-5.0) mEq/L Chloride 102 (98-106) mEq/L Carbon Dioxide 28 (21-32) mmol/L BUN 16 (7-18) mg/dL Creatinine 1.1 H D (0.6-1.0) mg/dL Est Cr Clr Drug Dosing 52.84 mL/min Estimated GFR (MDRD) 53 L (>=60) mL/min Glucose 152 H D (75-99) mg/dL Lactic Acid 1.6 (0.4-2.0) mmol/L Calcium 8.7 (8.4-10.1) mg/dL Total Bilirubin 0.4 (0.0-1.0) mg/dL AST 29 (15-37) U/L ALT 47 (12-78) U/L Alkaline Phosphatase 74 (46-116) U/L Creatine Kinase 63 (21-215) U/L Troponin I < 0.017 (0.00-0.06) ng/mL C-Reactive Protein 4.5 H (0.2-0.8) mg/dL NT-Pro-B Natriuret Pep 113 (0-1000) pg/mL Total Protein 6.7 (6.4-8.2) g/dL Albumin 2.9 L (3.4-5.0) g/dL SARS CoV-2 RNA Rapid KAROL (NEGATIVE) Meds: Medications Generic Name Dose Route Start Last Admin Trade Name Freq PRN Reason Stop Dose Admin Levofloxacin/Dextrose 500 mg/ 100 mls @ 100 mls/hr 09/02/20 20:30 09/02/20 20:32 Premix IV 100 mls/hr Q24H ELVIA Administration Lactated Ringer's 1,000 mls @ 125 mls/hr 09/02/20 20:30 09/02/20 20:32 Ringers, Lactated IV 09/03/20 04:29 125 mls/hr ASDIRECTED ELVIA Administration - Re-Assessments/Exams Free Text/Narrative Re-Assessment/Exam: Patient a difficult lab draw. 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 Departure - Departure Time of Disposition: 20:51 Disposition: Admitted As Inpatient 65 Condition: Fair Clinical Impression: Cellulitis of both lower extremities Sepsis Qualifiers: Sepsis type: sepsis due to unspecified organism Sepsis acute organ dysfunction status: without acute organ dysfunction Qualified Code(s): A41.9 - Sepsis, unspecified organism - Discharge Information *PRESCRIPTION DRUG MONITORING PROGRAM REVIEWED*: Not Applicable *COPY OF PRESCRIPTION DRUG MONITORING REPORT IN PATIENT NATA: Not Applicable Referrals: PCP,None [Primary Care Provider] - Forms: ED Department Discharge Sepsis Event Note (ED) - Evaluation Sepsis Screening Result: Possible Sepsis Risk - Focused Exam Vital Signs: Vital Signs Temp Pulse Resp BP Pulse Ox 09/02/20 20:49 100.6 F 09/02/20 19:18 103.7 F H 123 H 20 143/65 H 95 - My Orders Last 24 Hours: My Active Orders 09/02/20 19:27 UA W/MICROSCOPIC [URIN] Stat Blood Culture x2 Reflex Set [OM.PC] Stat 09/02/20 20:09 CULTURE BLOOD [BC] Stat 09/02/20 20:30 Lactated Ringers [Ringers, Lactated] 1,000 ml IV ASDIRECTED Levofloxacin/Dextrose 5%-Water [Levaquin in D5W 500 MG/100 ML] 500 mg Premix Bag 1 bag IV Q24H 09/02/20 20:42 Patient Status Manage Transfer [TRANSFER] Routine Resuscitation Status Routine - Assessment/Plan Admission H&P: Please use this note as an admission H&P Last 24 Hours: My Active Orders 09/02/20 19:27 UA W/MICROSCOPIC [URIN] Stat Blood Culture x2 Reflex Set [OM.PC] Stat 09/02/20 20:09 CULTURE BLOOD [BC] Stat 09/02/20 20:30 Lactated Ringers [Ringers, Lactated] 1,000 ml IV ASDIRECTED Levofloxacin/Dextrose 5%-Water [Levaquin in D5W 500 MG/100 ML] 500 mg Premix Bag 1 bag IV Q24H 09/02/20 20:42 Patient Status Manage Transfer [TRANSFER] Routine Resuscitation Status Routine Assessment:: Cellulitis of bilateral lower extremities Chronic Venous Stasis Sepsis Plan: Patient presents to the ED with c/o malaise and fever. Temp 103.7 upon arrival. Lab work significant for WBC 13.3, CRP 4.5, Lactic acid 1.6. Bilateral lower extremities with chronic weeping edema and venous stasis. Does have scattered open area to BLE. BLE with increased redness and warmth, left worse than right. Concerns for sepsis from these lower extremity wounds/cellulitis. Patient will be admitted acute with telemetry for IV antibiotics. Will start IV Levaquin as previous wound cultures have been sensitive to this in the past. 1 set of blood cultures obtained. Patient very difficult lab draw and after multiple attempts lab unable to draw second set. HR tachy but BP normotensive. Will give patient 1 L LR. D-Dimer elevated. Will get lower extremity US to r/o DVT. PT consult for wound cares and wound culture. Nursing to change dressings twice daily. She did take ibuprofen prior to ED presentation. Temperature improved to 100.6 at time of admission. Patient transferred to floor in satisfactory condition.
[2020-09-02] MEDS ORDERED: Lactated Ringers 1,000 ML IV SCH (20:30)
[2020-09-02] MEDS: Levofloxacin/Dextrose 5%-Water 500 MG in Premix Bag 1 BAG IV SCH (20:32)
[2020-09-02 20:36] LABS: CHLORIDE,CL 102 mEq/L (98-106); SODIUM,NA 138 mEq/L (136-145)
[2020-09-02] MEDS ORDERED: Polyethylene Glycol 3350 Powder 17 GM Packet PO PRN (22:24)
[2020-09-02] MEDS ORDERED: hydrOXYzine HCl 25 MG Tab PO PRN (22:24)
[2020-09-02] MEDS ORDERED: Docusate Sodium 100 MG Cap PO PRN (22:24)
[2020-09-02] MEDS ORDERED: Albuterol 8 GM Inhaler INH PRN (22:24)
[2020-09-02] MEDS ORDERED: Albuterol/Ipratropium 3.0-0.5 MG/3 ML Neb Soln NEB PRN (22:24)
[2020-09-02] MEDS ORDERED: Temazepam 15 MG Cap PO PRN (22:24)
[2020-09-02] MEDS ORDERED: Ondansetron 4 MG/2 ML SDV IV PRN (22:24)
[2020-09-02] MEDS: Acetaminophen 325 MG Tab PO PRN (22:32)
[2020-09-02] MEDS: Pantoprazole 40 MG Vial IVPUSH SCH (23:40)
[2020-09-02] MEDS: Enoxaparin 40 MG/0.4 ML Syringe SUBCUT SCH (23:40)
[2020-09-02] MEDS: rOPINIRole 1 MG Tab PO SCH (23:41)
[2020-09-03] MEDS: Ibuprofen 200 MG Tab PO PRN ×2 (00:14→18:13)
[2020-09-03] MEDS: Acetaminophen 325 MG Tab PO PRN ×3 (05:46→19:17)
[2020-09-03] MEDS: Pregabalin 25 MG Cap PO SCH ×2 (07:53→19:15)
[2020-09-03] MEDS: Ferrous Sulfate 324 MG Tab.EC PO SCH (07:53)
[2020-09-03] MEDS: Citalopram 10 MG Tab PO SCH (07:53)
[2020-09-03] MEDS: Furosemide 40 MG Tab PO SCH ×2 (07:54→15:37)
[2020-09-03] MEDS: Estradiol 1 MG Tab PO SCH (07:54)
[2020-09-03] MEDS: Aspirin 81 MG Tab.EC PO SCH (07:54)
[2020-09-03] MEDS: rOPINIRole 1 MG Tab PO SCH ×3 (07:54→19:16)
[2020-09-03] MEDS: Gabapentin 100 MG Cap PO SCH ×2 (07:58→15:37)
[2020-09-03] MEDS ORDERED: [UNRECOGNIZED DRUG - OTHER] PO SCH (08:00)
[2020-09-03] MEDS: Fluconazole 100 MG Tab PO SCH (09:30)
--- NOTE | 2020-09-03 09:44 | PCM.PN ---
- General Info Date of Service: 09/03/20 Admission Dx/Problem (Free Text): Cellulitis Bilateral Lower Extremities Sepsis Subjective Update: Barbara is a 49 year old female who presented to the ED yesterday eveing with c/o generalized malaise and fever. Reports she was feeling fine yesterday morning when she woke up. As the day progressed she reports she started to feel "lousy". Last night she had a temperature of 102. Upon arrival to ED her temperature was 103.7. Patient complained of generalized achiness. Patient did have some bilateral lower abdominal pain as well with low back pain but denied any urinary complaints. Patient has chronic lymphedema and venous stasis to both lower extremities with weeping edema. Admits she goes to [facility] for treatments. Has been wrapping them and changing dressings twice daily. She did admit that her left leg was hurting a little more than normal. Patient has been hospitalized numerous times with cellulitis. 09/03/2020 Barbara states she is feeling a lot better today from yesterday. Fever broke last night and states she doesn't have any discomfort at this time. States she is drinking fine. Denies any further abdominal discomfort or back pain. Functional Status: Reports: Pain Controlled. Denies: New Symptoms - Review of Systems General: Reports: Fever (resolved). Denies: Chills, Night Sweats HEENT: Reports: No Symptoms Pulmonary: Reports: No Symptoms Cardiovascular: Reports: Edema. Denies: Chest Pain Gastrointestinal: Reports: No Symptoms. Denies: Abdominal Pain, Constipation, Diarrhea, Nausea, Vomiting Genitourinary: Reports: No Symptoms Musculoskeletal: Reports: No Symptoms Skin: Reports: Rash Neurological: Reports: No Symptoms Psychiatric: Reports: No Symptoms - Patient Data Vitals - Most Recent: Last Vital Signs Temp 98.2 F 09/03/20 07:45 Pulse 86 09/03/20 07:45 Resp 18 09/03/20 07:45 BP 137/63 09/03/20 07:45 Pulse Ox 95 09/03/20 07:45 Weight - Most Recent: 359 lb 8 oz Lab Results Last 24 Hours: Laboratory Results - last 24 hr 09/02/20 09/02/20 09/02/20 Range/Units 19:27 19:27 20:09 WBC 13.3 H (5.0-10.0) 10^3/uL RBC 4.71 (4.00-5.50) 10^6/uL Hgb 14.2 (12.0-16.0) g/dL Hct 42.7 (37.0-47.0) % MCV 90.7 (82.0-94.0) fL MCH 30.1 (27.0-32.0) pg MCHC 33.3 (33.0-38.0) g/dL RDW Coeff of Debi 12.2 (11.0-15.0) % Plt Count 273 (150-400) 10^3/uL Neut % (Auto) 90.1 H (35-85) % Lymph % (Auto) 5.3 L (10-55) % [place] % (Auto) 3.9 (0-16) % Eos % (Auto) 0.5 (0-5) % Baso % (Auto) 0.2 (0-3) % Neut # (Auto) 11.97 H (1.80-7.00) 10^3/uL Lymph # (Auto) 0.70 L (1.00-4.80) 10^3/uL [place] # (Auto) 0.52 (0.00-0.80) 10^3/uL Eos # (Auto) 0.06 (0.00-0.45) 10^3/uL Baso # (Auto) 0.02 10^3/uL PT (9.3-11.4) SEC INR (0.92-1.18) APTT (23.2-32.3) SEC D-Dimer, Quantitative (0.00-0.50) Sodium (136-145) mEq/L Potassium (3.5-5.0) mEq/L Chloride (98-106) mEq/L Carbon Dioxide (21-32) mmol/L BUN (7-18) mg/dL Creatinine (0.6-1.0) mg/dL Est Cr Clr Drug Dosing mL/min Estimated GFR (MDRD) (>=60) mL/min Glucose (75-99) mg/dL Lactic Acid (0.4-2.0) mmol/L Calcium (8.4-10.1) mg/dL Total Bilirubin (0.0-1.0) mg/dL AST (15-37) U/L ALT (12-78) U/L Alkaline Phosphatase (46-116) U/L Creatine Kinase (21-215) U/L Troponin I (0.00-0.06) ng/mL C-Reactive Protein (0.2-0.8) mg/dL NT-Pro-B Natriuret Pep (0-1000) pg/mL Total Protein (6.4-8.2) g/dL Albumin (3.4-5.0) g/dL Urine Color Yellow (YELLOW) Urine Appearance Slightly cloudy (CLEAR) Urine pH 5.5 (4.5-8.0) Ur Specific [place] 1.025 H (1.003-1.020) Urine Protein Negative (NEGATIVE) mg/dL Urine Glucose (UA) Negative (NEGATIVE) mg/dL Urine Ketones Negative (NEGATIVE) mg/dL Urine Occult Blood Negative (NEGATIVE) Urine Nitrite Negative (NEGATIVE) Urine Bilirubin Negative (NEGATIVE) Urine Urobilinogen 0.2 (0.2-1.0) EU/dL Ur Leukocyte Esterase Trace H (NEGATIVE) Urine RBC 0-5 (0-5) /HPF Urine WBC 10-20 H (0-5) /HPF Ur Squamous Epith Cells Moderate H (NOT SEEN) /HPF Urine Bacteria Few H (NOT SEEN) /HPF Urine Yeast Few H (NOT SEEN) /HPF SARS CoV-2 RNA Rapid KAROL Negative (NEGATIVE) 09/02/20 09/02/20 09/02/20 Range/Units 20:09 20:09 20:09 WBC (5.0-10.0) 10^3/uL RBC (4.00-5.50) 10^6/uL Hgb (12.0-16.0) g/dL Hct (37.0-47.0) % MCV (82.0-94.0) fL MCH (27.0-32.0) pg MCHC (33.0-38.0) g/dL RDW Coeff of Debi (11.0-15.0) % Plt Count (150-400) 10^3/uL Neut % (Auto) (35-85) % Lymph % (Auto) (10-55) % [place] % (Auto) (0-16) % Eos % (Auto) (0-5) % Baso % (Auto) (0-3) % Neut # (Auto) (1.80-7.00) 10^3/uL Lymph # (Auto) (1.00-4.80) 10^3/uL [place] # (Auto) (0.00-0.80) 10^3/uL Eos # (Auto) (0.00-0.45) 10^3/uL Baso # (Auto) 10^3/uL PT 10.1 (9.3-11.4) SEC INR 1.00 (0.92-1.18) APTT 21.0 L (23.2-32.3) SEC D-Dimer, Quantitative 1.35 H (0.00-0.50) Sodium 138 (136-145) mEq/L Potassium 4.3 (3.5-5.0) mEq/L Chloride 102 (98-106) mEq/L Carbon Dioxide 28 (21-32) mmol/L BUN 16 (7-18) mg/dL Creatinine 1.1 H D (0.6-1.0) mg/dL Est Cr Clr Drug Dosing 52.84 mL/min Estimated GFR (MDRD) 53 L (>=60) mL/min Glucose 152 H D (75-99) mg/dL Lactic Acid 1.6 (0.4-2.0) mmol/L Calcium 8.7 (8.4-10.1) mg/dL Total Bilirubin 0.4 (0.0-1.0) mg/dL AST 29 (15-37) U/L ALT 47 (12-78) U/L Alkaline Phosphatase 74 (46-116) U/L Creatine Kinase 63 (21-215) U/L Troponin I < 0.017 (0.00-0.06) ng/mL C-Reactive Protein (0.2-0.8) mg/dL NT-Pro-B Natriuret Pep 113 (0-1000) pg/mL Total Protein 6.7 (6.4-8.2) g/dL Albumin 2.9 L (3.4-5.0) g/dL Urine Color (YELLOW) Urine Appearance (CLEAR) Urine pH (4.5-8.0) Ur Specific [place] (1.003-1.020) Urine Protein (NEGATIVE) mg/dL Urine Glucose (UA) (NEGATIVE) mg/dL Urine Ketones (NEGATIVE) mg/dL Urine Occult Blood (NEGATIVE) Urine Nitrite (NEGATIVE) Urine Bilirubin (NEGATIVE) Urine Urobilinogen (0.2-1.0) EU/dL Ur Leukocyte Esterase (NEGATIVE) Urine RBC (0-5) /HPF Urine WBC (0-5) /HPF Ur Squamous Epith Cells (NOT SEEN) /HPF Urine Bacteria (NOT SEEN) /HPF Urine Yeast (NOT SEEN) /HPF SARS CoV-2 RNA Rapid KAROL (NEGATIVE) 09/02/20 09/03/20 09/03/20 Range/Units 20:52 07:36 07:36 WBC 13.2 H (5.0-10.0) 10^3/uL RBC 4.23 (4.00-5.50) 10^6/uL Hgb 12.6 (12.0-16.0) g/dL Hct 38.2 (37.0-47.0) % MCV 90.3 (82.0-94.0) fL MCH 29.8 (27.0-32.0) pg MCHC 33.0 (33.0-38.0) g/dL RDW Coeff of Debi 12.3 (11.0-15.0) % Plt Count 230 (150-400) 10^3/uL Neut % (Auto) 88.9 H (35-85) % Lymph % (Auto) 8.1 L (10-55) % [place] % (Auto) 2.7 (0-16) % Eos % (Auto) 0.2 (0-5) % Baso % (Auto) 0.1 (0-3) % Neut # (Auto) 11.73 H (1.80-7.00) 10^3/uL Lymph # (Auto) 1.07 (1.00-4.80) 10^3/uL [place] # (Auto) 0.35 (0.00-0.80) 10^3/uL Eos # (Auto) 0.02 (0.00-0.45) 10^3/uL Baso # (Auto) 0.01 10^3/uL PT (9.3-11.4) SEC INR (0.92-1.18) APTT (23.2-32.3) SEC D-Dimer, Quantitative (0.00-0.50) Sodium 137 (136-145) mEq/L Potassium 3.9 (3.5-5.0) mEq/L Chloride 103 (98-106) mEq/L Carbon Dioxide 25 (21-32) mmol/L BUN 14 (7-18) mg/dL Creatinine 1.1 H (0.6-1.0) mg/dL Est Cr Clr Drug Dosing 51.72 mL/min Estimated GFR (MDRD) 53 L (>=60) mL/min Glucose 124 H (75-99) mg/dL Lactic Acid (0.4-2.0) mmol/L Calcium 8.1 L (8.4-10.1) mg/dL Total Bilirubin (0.0-1.0) mg/dL AST (15-37) U/L ALT (12-78) U/L Alkaline Phosphatase (46-116) U/L Creatine Kinase (21-215) U/L Troponin I (0.00-0.06) ng/mL C-Reactive Protein 4.5 H 13.1 H (0.2-0.8) mg/dL NT-Pro-B Natriuret Pep (0-1000) pg/mL Total Protein (6.4-8.2) g/dL Albumin (3.4-5.0) g/dL Urine Color (YELLOW) Urine Appearance (CLEAR) Urine pH (4.5-8.0) Ur Specific [place] (1.003-1.020) Urine Protein (NEGATIVE) mg/dL Urine Glucose (UA) (NEGATIVE) mg/dL Urine Ketones (NEGATIVE) mg/dL Urine Occult Blood (NEGATIVE) Urine Nitrite (NEGATIVE) Urine Bilirubin (NEGATIVE) Urine Urobilinogen (0.2-1.0) EU/dL Ur Leukocyte Esterase (NEGATIVE) Urine RBC (0-5) /HPF Urine WBC (0-5) /HPF Ur Squamous Epith Cells (NOT SEEN) /HPF Urine Bacteria (NOT SEEN) /HPF Urine Yeast (NOT SEEN) /HPF SARS CoV-2 RNA Rapid KAROL (NEGATIVE) Med Orders - Current: Current Medications Acetaminophen (Tylenol) 650 mg PO Q4H PRN PRN Reason: Pain (Mild 1-3)/fever Last Admin: 09/03/20 05:46 Dose: 650 mg Documented by: Hydrocodone Bitart/Acetaminophen ([place] 325-5 Mg) 1 tab PO Q6H PRN PRN Reason: Pain (moderate 4-6) Albuterol (Ventolin Hfa) 0 gm INH Q4H PRN PRN Reason: Shortness of Breath Albuterol/Ipratropium (Duoneb 3.0-0.5 Mg/3 Ml) 3 ml NEB Q4H PRN PRN Reason: Shortness of Breath Aspirin (Halfprin) 81 mg PO DAILY [facility] Last Admin: 09/03/20 07:54 Dose: 81 mg Documented by: Citalopram Hydrobromide (Celexa) 20 mg PO DAILY [facility] Last Admin: 09/03/20 07:53 Dose: 20 mg Documented by: Docusate Sodium (Colace) 100 mg PO BID PRN PRN Reason: Constipation Enoxaparin Sodium (Lovenox) 40 mg SUBCUT Q24H [facility] Last Admin: 09/02/20 23:40 Dose: 40 mg Documented by: Estradiol (Estradiol) 1 mg PO DAILY [facility] Last Admin: 09/03/20 07:54 Dose: 1 mg Documented by: Ferrous Sulfate (Ferrous Sulfate) 324 mg PO DAILY [facility] Last Admin: 09/03/20 07:53 Dose: 324 mg Documented by: Fluconazole (Diflucan) 100 mg PO DAILY [facility] Last Admin: 09/03/20 09:30 Dose: 100 mg Documented by: Furosemide (Lasix) 40 mg PO BIDDIURETIC [facility] Last Admin: 09/03/20 07:54 Dose: 40 mg Documented by: Gabapentin (Neurontin) 100 mg PO 0800,1500 [facility] Last Admin: 09/03/20 07:58 Dose: 100 mg Documented by: Gabapentin (Neurontin) 300 mg PO BEDTIME [facility] Hydroxyzine HCl (Atarax) 50 mg PO TID PRN PRN Reason: Itching Levofloxacin/Dextrose 500 mg/ (Premix) 100 mls @ 100 mls/hr IV Q24H [facility] Last Admin: 09/02/20 20:32 Dose: 100 mls/hr Documented by: Ibuprofen (Motrin) 600 mg PO Q6H PRN PRN Reason: Pain (mild 1-3) Last Admin: 09/03/20 00:14 Dose: 600 mg Documented by: Ondansetron HCl (Zofran) 4 mg IV Q6H PRN PRN Reason: Nausea/Vomiting Pantoprazole Sodium (Protonix Iv) 40 mg IVPUSH Q24H [facility] Last Admin: 09/02/20 23:40 Dose: 40 mg Documented by: Polyethylene Glycol (Miralax) 17 gm PO DAILY PRN PRN Reason: Constipation Pregabalin (Lyrica) 75 mg PO BID [facility] Last Admin: 09/03/20 07:53 Dose: 75 mg Documented by: Ropinirole HCl (Requip) 1 mg PO 0800,1200 [facility] Last Admin: 09/03/20 07:54 Dose: 1 mg Documented by: Ropinirole HCl (Requip) 4 mg PO BEDTIME [facility] Last Admin: 09/02/20 23:41 Dose: 4 mg Documented by: Simvastatin (Zocor) 20 mg PO BEDTIME [facility] Temazepam (Restoril) 15 mg PO BEDTIME PRN PRN Reason: Sleep Discontinued Medications Lactated Ringer's (Ringers, Lactated) 1,000 mls @ 125 mls/hr IV ASDIRECTED [facility] Stop: 09/03/20 04:29 Last Admin: 09/02/20 20:32 Dose: 125 mls/hr Documented by: Non-Formulary Medication (Glucosamine/Chondroitn/C/Steve [Glucosamine-Chondr Complex]) 1 each PO DAILY [facility] Last Admin: 09/03/20 09:31 Dose: Not Given Documented by: - Exam General: Alert, Oriented, Cooperative, No Acute Distress Lungs: Clear to Auscultation, Normal Respiratory Effort Cardiovascular: Regular Rate, Regular Rhythm, No Murmurs GI/Abdominal Exam: Normal Bowel Sounds, Soft, Non-Tender, No Distention, Other (morbid obesity) Extremities: Pedal Edema, Increased Warmth, Redness Skin: Other (bilateral lower extremities show stasis dermatitis with lymphedema. Moderate bilateral weeping edema noted. Erthema extends from feet up to proximal [place] area. Areas are warmth to touch. ) Wound/Incisions: Drainage, Erythema Neurological: No New Focal Deficit Psy/Mental Status: Alert, Normal Affect, Normal Mood Sepsis Event Note - Evaluation Sepsis Screening Result: No Definite Risk Current Stage of Sepsis: Sepsis Possible Source of Sepsis: Skin/Soft Tissue - Focused Exam Sepsis Event Note Statement: Focused Sepsis Exam Completed Vital Signs: Vital Signs Temp Temp Pulse Resp BP Pulse Ox 09/03/20 07:45 98.2 F 86 18 137/63 95 09/03/20 04:00 98.2 F 96 20 104/49 L 96 09/03/20 01:14 98.2 F 09/03/20 00:14 101.9 F H 09/03/20 00:00 101.9 F H 112 H 20 118/49 L 95 09/02/20 22:00 101.3 F H 108 H 20 147/47 H 95 - Problem List & Annotations (1) Cellulitis of both lower extremities SNOMED Code(s): 750004132 Code(s): L03.115 - CELLULITIS OF RIGHT LOWER LIMB; L03.116 - CELLULITIS OF LEFT LOWER LIMB Status: Acute Priority: High Current Visit: Yes (2) Sepsis SNOMED Code(s): 29402198 Code(s): A41.9 - SEPSIS, UNSPECIFIED ORGANISM Status: Acute Current Visit: Yes Qualifiers: Sepsis type: sepsis due to unspecified organism Sepsis acute organ dysfunction status: without acute organ dysfunction Qualified Code(s): A41.9 - Sepsis, unspecified organism (3) Chronic acquired lymphedema SNOMED Code(s): 38907027 Code(s): I89.0 - LYMPHEDEMA, NOT ELSEWHERE CLASSIFIED Status: Acute Priority: High Current Visit: No - Problem List Review Problem List Initiated/Reviewed/Updated: Yes - My Orders Last 24 Hours: My Active Orders 09/03/20 09:00 Fluconazole [Diflucan] 100 mg PO DAILY - Plan Plan:: Overall, Barbara physically appears to have significant improvement today. Laboratory work does show continued elevated WBC of 13.2. CRP did elevate to 13.1 today. Will closely monitor and continue IV antibiotics. Initial blood culture is positive, pending final report. PT to evaluate for wound care. Patient is allergic to medications in regards to [place] boots.
[2020-09-03] MEDS: Acetaminophen/HYDROcodone 325-5 MG Tab PO PRN (16:52)
[2020-09-03] MEDS: Levofloxacin/Dextrose 5%-Water 500 MG in Premix Bag 1 BAG IV SCH (19:30)
[2020-09-03] MEDS ORDERED: Simvastatin 20 MG Tab PO SCH (20:00)
[2020-09-03] MEDS ORDERED: Gabapentin 300 MG Cap PO SCH (20:00)
[2020-09-03] MEDS: Pantoprazole 40 MG Vial IVPUSH SCH (21:31)
[2020-09-03] MEDS: Enoxaparin 40 MG/0.4 ML Syringe SUBCUT SCH (21:33)
[2020-09-04] MEDS: Acetaminophen/HYDROcodone 325-5 MG Tab PO PRN (03:57)
[2020-09-04] MEDS: Acetaminophen 325 MG Tab PO PRN (08:18)
[2020-09-04] MEDS: rOPINIRole 1 MG Tab PO SCH (08:19)
[2020-09-04] MEDS: Pregabalin 25 MG Cap PO SCH (08:19)
[2020-09-04] MEDS: Citalopram 10 MG Tab PO SCH (08:19)
[2020-09-04] MEDS: Furosemide 40 MG Tab PO SCH (08:19)
[2020-09-04] MEDS: Ferrous Sulfate 324 MG Tab.EC PO SCH (08:19)
[2020-09-04] MEDS: Estradiol 1 MG Tab PO SCH (08:19)
[2020-09-04] MEDS: Aspirin 81 MG Tab.EC PO SCH (08:20)
[2020-09-04] MEDS: Fluconazole 100 MG Tab PO SCH (08:20)
[2020-09-04] MEDS: Gabapentin 100 MG Cap PO SCH (08:24)
[2020-09-04 09:01] VITALS: BP 146/62; PULSE 102
[2020-09-04] MEDS ORDERED: cefTRIAXone 2 GM Vial IVPUSH ONE (10:00)
--- NOTE | 2020-09-04 10:00 | PCM.DCSUM1 ---
Discharge Summary - Hospital Course HPI Initial Comments: Barbara is a 49 year old female who presented to the ED on the evening of the 02 of September with complaints of generalized malaise and fever. She was feeling fine earlier that morning when she woke up. As the day progressed she reports she started to feel "lousy". That evening she had a temperature of 102. Upon arrival to ED temp was 103.7. She had complaints of nausea and chills with bodyaches all over. She has chronic lymphedema and venous stasis to bilateral lower extremities. Has known chronic weeping edema. She had been wrapping them and changing dressings twice daily. Allergy to Unna boots. Upon admission she had complaints of increased redness and her left leg hurting more than normal. Patient has known history of cellulitis with numerous hospitalizations. - Discharge Data Discharge Date: 09/04/20 Discharge Disposition: DC/Tfer to Acute Hospital 02 Condition: Fair - Referral to [facility] Primary Care Physician: TONY Ferris - Discharge Diagnosis/Problem(s) (1) Cellulitis of both lower extremities SNOMED Code(s): 661168220 ICD Code: L03.115 - CELLULITIS OF RIGHT LOWER LIMB; L03.116 - CELLULITIS OF LEFT LOWER LIMB Status: Acute Priority: High Current Visit: Yes (2) Sepsis SNOMED Code(s): 75198336 ICD Code: A41.9 - SEPSIS, UNSPECIFIED ORGANISM Status: Acute Current Visit: Yes Qualifiers: Sepsis type: Streptococcus group A Sepsis acute organ dysfunction status: without acute organ dysfunction Qualified Code(s): A40.0 - Sepsis due to streptococcus, group A (3) Chronic acquired lymphedema SNOMED Code(s): 74673540 ICD Code: I89.0 - LYMPHEDEMA, NOT ELSEWHERE CLASSIFIED Status: Acute Priority: High Current Visit: No - Patient Summary/Data Consults: Consultations 09/02/20 22:24 PT Evaluation and Treatment [CONS] Routine - Patient Instructions Diet: NPO - Discharge Plan *PRESCRIPTION DRUG MONITORING PROGRAM REVIEWED*: Not Applicable *COPY OF PRESCRIPTION DRUG MONITORING REPORT IN PATIENT NATA: Not Applicable Home Medications: Home Meds Albuterol [IJD: Ventolin HFA] 1 - 2 puff INH Q4H PRN 01/14/16 [History] Albuterol/Ipratropium [DuoNeb 3.0-0.5 MG/3 ML] 3 ml NEB Q4HRRT PRN 01/14/16 [History] Aspirin [Halfprin] 81 mg PO DAILY 01/14/16 [History] Furosemide [Lasix] 40 mg PO BID 01/14/16 [History] Simvastatin 20 mg PO BEDTIME 01/14/16 [History] estradioL [Estradiol] 1 mg PO DAILY 01/14/16 [History] rOPINIRole HCl [Ropinirole HCl] 4 mg PO BEDTIME 01/14/16 [History] Ferrous Sulfate [Iron] 325 mg PO DAILY 01/23/16 [History] Pantoprazole Sodium 40 mg PO DAILY 01/23/16 [History] Glucosamine/Chondroitn/C/Steve [Glucosamine-Chondr Complex] 1 each PO DAILY 02/16/19 [History] Pregabalin [Lyrica] 75 mg PO BID 02/16/19 [History] Escitalopram [Lexapro] 10 mg PO DAILY 03/10/20 [History] Gabapentin [Neurontin] 100 mg PO ASDIRECTED 03/10/20 [History] hydrOXYzine HCL [Hydroxyzine HCl] 50 mg PO TID PRN 03/10/20 [History] rOPINIRole [Requip] 0.5 tab PO ASDIRECTED 03/10/20 [History] Ibuprofen [Advil] 200 mg PO ASDIRECTED PRN 09/02/20 [History] Forms: ED Department Discharge Referrals: PCP,None [Ordering Only Provider] - - Discharge Summary/Plan Comment DC Time >30 min.: Yes Discharge Summary/Plan Comment: Patient's symptoms started to worsen this morning with increased redness, discomfort to right lower extremity. Left lower extremity doesn't show any significant migration. Blood culture (preliminary) was positive for Group A strep. Consulted with hospitalist, Dr. Oh, at [facility] in [place] with concerns of developing necrotizing fascitis. Dr. Oh kindly accepted transfer. Labs today show an elevated CRP of 22.4, up from 13.1 yesterday. Lactic acid on admission was 1.6. [place] [address] [place] [address]. Discussed with Barbara transferring to a higher level of care, which she is in agreement. Patient did receive 2gm of Rocephin prior to discharge. Vital signs are stable. Risks and benefits of transfer were discussed with patient. Risks of transfer included worsening of condition en route, increase pain, MVA, etc... Benefits of transfer included higher level of care, specialists, interventions not available at local facility. Risks of non transfer included worsening of condition, unable to perform surgical debridement if needed, loss of limb, . Benefits of non transfer included staying close to home, familiar environment. Patient ve rbalized benefits of transfer outweigh the risks. Will transfer via S services to [facility] in [place]. - General Info Date of Service: 09/04/20 Admission Dx/Problem (Free Text: Cellulitis Bilateral Lower Extremities Sepsis Subjective Update: Barbara is a 49 year old female who presented to the ED yesterday eveing with c/o generalized malaise and fever. Reports she was feeling fine yesterday morning when she woke up. As the day progressed she reports she started to feel "lousy". Last night she had a temperature of 102. Upon arrival to ED her temperature was 103.7. Patient complained of generalized achiness. Patient did have some bilateral lower abdominal pain as well with low back pain but denied any urinary complaints. Patient has chronic lymphedema and venous stasis to both lower extremities with weeping edema. Admits she goes to [place] for treatments. Has been wrapping them and changing dressings twice daily. She did admit that her left leg was hurting a little more than normal. Patient has been hospitalized numerous times with cellulitis. 09/03/2020 Barbara states she is feeling a lot better today from yesterday. Fever broke last night and states she doesn't have any discomfort at this time. States she is drinking fine. Denies any further abdominal discomfort or back pain. 09/04/2020 Patient states she started to feel worse in the middle of the night around 4:00am this morning. Staff did notice low grade temperature and patient was given Tylenol. She states she has increased discomfort to the right lower extremity. Physical therapy had wrapped her legs the day prior. Patient unable to have Unna boots secondary to allergies. Functional Status: Reports: New Symptoms (worsening erythema) - Review of Systems General: Reports: Fever, Weakness, Fatigue. Denies: Chills HEENT: Reports: No Symptoms Pulmonary: Reports: No Symptoms Cardiovascular: Reports: No Symptoms Gastrointestinal: Reports: No Symptoms Genitourinary: Reports: No Symptoms Musculoskeletal: Reports: Leg Pain Skin: Reports: Other (worsening cellulitis) Neurological: Reports: No Symptoms - Patient Data Vitals - Most Recent: Last Vital Signs Temp 100.6 F 09/04/20 08:00 Pulse 102 H 09/04/20 08:00 Resp 20 09/04/20 08:00 BP 146/62 H 09/04/20 08:00 Pulse Ox 96 09/04/20 08:00 Weight - Most Recent: 359 lb 8 oz Lab Results - Last 24 hrs: Laboratory Results - last 24 hr 09/04/20 09/04/20 Range/Units 06:57 06:57 WBC 10.6 H (5.0-10.0) 10^3/uL RBC 4.06 (4.00-5.50) 10^6/uL Hgb 12.3 (12.0-16.0) g/dL Hct 37.1 (37.0-47.0) % MCV 91.4 (82.0-94.0) fL MCH 30.3 (27.0-32.0) pg MCHC 33.2 (33.0-38.0) g/dL RDW Coeff of Debi 12.7 (11.0-15.0) % Plt Count 220 (150-400) 10^3/uL Neut % (Auto) 77.1 (35-85) % Lymph % (Auto) 12.9 (10-55) % [place] % (Auto) 6.0 (0-16) % Eos % (Auto) 3.8 (0-5) % Baso % (Auto) 0.2 (0-3) % Neut # (Auto) 8.18 H (1.80-7.00) 10^3/uL Lymph # (Auto) 1.37 (1.00-4.80) 10^3/uL [place] # (Auto) 0.64 (0.00-0.80) 10^3/uL Eos # (Auto) 0.40 (0.00-0.45) 10^3/uL Baso # (Auto) 0.02 10^3/uL Sodium 137 (136-145) mEq/L Potassium 3.7 (3.5-5.0) mEq/L Chloride 102 (98-106) mEq/L Carbon Dioxide 30 (21-32) mmol/L BUN 14 (7-18) mg/dL Creatinine 1.0 (0.6-1.0) mg/dL Est Cr Clr Drug Dosing 56.90 mL/min Estimated GFR (MDRD) 59 L (>=60) mL/min Glucose 152 H (75-99) mg/dL Calcium 7.9 L (8.4-10.1) mg/dL C-Reactive Protein 22.4 H (0.2-0.8) mg/dL GAYLA Results - Last 24 hrs: Microbiology 09/02/20 20:09 Aerobic Blood Culture - Final Blood - Venous Streptococcus Group A Anaerobic Blood Culture - Final Streptococcus Group A Med Orders - Current: Current Medications Acetaminophen (Tylenol) 650 mg PO Q4H PRN PRN Reason: Pain (Mild 1-3)/fever Last Admin: 09/04/20 08:18 Dose: 650 mg Documented by: Hydrocodone Bitart/Acetaminophen ([place] 325-5 Mg) 1 tab PO Q6H PRN PRN Reason: Pain (moderate 4-6) Last Admin: 09/04/20 03:57 Dose: 1 tab Documented by: Albuterol (Ventolin Hfa) 0 gm INH Q4H PRN PRN Reason: Shortness of Breath Albuterol/Ipratropium (Duoneb 3.0-0.5 Mg/3 Ml) 3 ml NEB Q4H PRN PRN Reason: Shortness of Breath Aspirin (Halfprin) 81 mg PO DAILY [facility] Last Admin: 09/04/20 08:20 Dose: 81 mg Documented by: Ceftriaxone Sodium (Rocephin) 2 gm IVPUSH ONETIME ONE Stop: 09/04/20 09:36 Citalopram Hydrobromide (Celexa) 20 mg PO DAILY [facility] Last Admin: 09/04/20 08:19 Dose: 20 mg Documented by: Docusate Sodium (Colace) 100 mg PO BID PRN PRN Reason: Constipation Enoxaparin Sodium (Lovenox) 40 mg SUBCUT Q24H [facility] Last Admin: 09/03/20 21:33 Dose: 40 mg Documented by: Estradiol (Estradiol) 1 mg PO DAILY [facility] Last Admin: 09/04/20 08:19 Dose: 1 mg Documented by: Ferrous Sulfate (Ferrous Sulfate) 324 mg PO DAILY [facility] Last Admin: 09/04/20 08:19 Dose: 324 mg Documented by: Fluconazole (Diflucan) 100 mg PO DAILY [facility] Last Admin: 09/04/20 08:20 Dose: 100 mg Documented by: Furosemide (Lasix) 40 mg PO BIDDIURETIC [facility] Last Admin: 09/04/20 08:19 Dose: 40 mg Documented by: Gabapentin (Neurontin) 100 mg PO 0800,1500 [facility] Last Admin: 09/04/20 08:24 Dose: 100 mg Documented by: Gabapentin (Neurontin) 300 mg PO BEDTIME [facility] Last Admin: 09/03/20 19:16 Dose: 300 mg Documented by: Hydroxyzine HCl (Atarax) 50 mg PO TID PRN PRN Reason: Itching Levofloxacin/Dextrose 500 mg/ (Premix) 100 mls @ 100 mls/hr IV Q24H [facility] Last Admin: 09/03/20 19:30 Dose: 100 mls/hr Documented by: Ibuprofen (Motrin) 600 mg PO Q6H PRN PRN Reason: Pain (mild 1-3) Last Admin: 09/03/20 18:13 Dose: 600 mg Documented by: Ondansetron HCl (Zofran) 4 mg IV Q6H PRN PRN Reason: Nausea/Vomiting Pantoprazole Sodium (Protonix Iv) 40 mg IVPUSH Q24H [facility] Last Admin: 09/03/20 21:31 Dose: 40 mg Documented by: Polyethylene Glycol (Miralax) 17 gm PO DAILY PRN PRN Reason: Constipation Pregabalin (Lyrica) 75 mg PO BID [facility] Last Admin: 09/04/20 08:19 Dose: 75 mg Documented by: Ropinirole HCl (Requip) 1 mg PO 0800,1200 [facility] Last Admin: 09/04/20 08:19 Dose: 1 mg Documented by: Ropinirole HCl (Requip) 4 mg PO BEDTIME [facility] Last Admin: 09/03/20 19:16 Dose: 4 mg Documented by: Simvastatin (Zocor) 20 mg PO BEDTIME [facility] Last Admin: 09/03/20 19:17 Dose: 20 mg Documented by: Temazepam (Restoril) 15 mg PO BEDTIME PRN PRN Reason: Sleep Discontinued Medications Lactated Ringer's (Ringers, Lactated) 1,000 mls @ 125 mls/hr IV ASDIRECTED [facility] Stop: 09/03/20 04:29 Last Admin: 09/02/20 20:32 Dose: 125 mls/hr Documented by: Non-Formulary Medication (Glucosamine/Chondroitn/C/Steve [Glucosamine-Chondr Complex]) 1 each PO DAILY [facility] Last Admin: 09/03/20 09:31 Dose: Not Given Documented by: - Exam General: Reports: Alert, Oriented, Cooperative, No Acute Distress Lungs: Reports: Clear to Auscultation, Normal Respiratory Effort Cardiovascular: Reports: Regular Rate, Regular Rhythm, No Murmurs GI/Abdominal Exam: Normal Bowel Sounds, Soft, Non-Tender, Other (morbid obesity) Extremities: Leg Pain, Increased Warmth, Redness Wound/Incisions: Reports: Drainage, Erythema, Other (right lower extremity has worsened in the last 12 hours. Extensive erythema and warmth extending above right knee. Tender upon palpation. ) Psy/Mental Status: Reports: Alert, Normal Affect, Normal Mood
[2020-09-04] MEDS: Ibuprofen 200 MG Tab PO PRN (10:37)
== END 2020-09-04 11:15 | DRG 872 ==
LOC: CC.ED 19:10 → CC.MS 20:42 → CC.ED 21:08 → UNDOADMIN 21:08
PROVIDERS: ADMIT Nurse Practitioner Family; ATTEND Family Medicine
DX: A40.0 Sepsis due to streptococcus, group A (principal); L03.115 Cellulitis of right lower limb; L03.116 Cellulitis of left lower limb; I89.0 Lymphedema, not elsewhere classified; J45.909 Unspecified asthma, uncomplicated; Z20.822 Contact with and (suspected) exposure to COVID-19; Z88.0 Allergy status to penicillin; Z88.1 Allergy status to other antibiotic agents; Z88.2 Allergy status to sulfonamides; Z91.040 Latex allergy status; Z91.013 Allergy to seafood; Z79.82 Long term (current) use of aspirin; Z79.899 Other long term (current) drug therapy; Z90.710 Acquired absence of both cervix and uterus
CPT/HCPCS: 36415; 80048; 80053; 81001; 82550; 83605; 83880; 84484; 85025; 85379; 85610; 85730; 86140; 87040; 87077; 93970; 96365; 97161-GP; 99284-25; A9270-GY; C9113; J0696; J1650; J1956; J7120; U0002

== ENCOUNTER 2020-11-26 15:17 | Inpatient (IN) | payer OTHER ==
[2020-11-26] MEDS ORDERED: Sodium Chloride 0.9% 10 ML Syringe FLUSH PRN (16:00)
[2020-11-26] MEDS ORDERED: cefTRIAXone 2 GM Vial IVPUSH SCH (16:00)
[2020-11-26] MEDS ORDERED: Albuterol/Ipratropium 3.0-0.5 MG/3 ML Neb Soln NEB PRN (17:36)
[2020-11-26] MEDS ORDERED: cefTRIAXone 2 GM Vial IM ONE (17:45)
[2020-11-26] MEDS ORDERED: Albuterol 8 GM Inhaler INH PRN (17:58)
[2020-11-26] MEDS ORDERED: hydrOXYzine HCl 25 MG Tab PO PRN (18:18)
[2020-11-26] MEDS: rOPINIRole 1 MG Tab PO SCH (20:04)
[2020-11-26] MEDS: Simvastatin 20 MG Tab PO SCH (20:05)
[2020-11-26] MEDS: Gabapentin 300 MG Cap PO SCH (20:05)
[2020-11-26] MEDS: Acetaminophen 325 MG Tab PO PRN (23:28)
[2020-11-27 07:18] LABS: CHLORIDE,CL 108 mEq/L (98-106); SODIUM,NA 143 mEq/L (136-145)
[2020-11-27] MEDS: Citalopram 10 MG Tab PO SCH (07:40)
[2020-11-27] MEDS: Enoxaparin 40 MG/0.4 ML Syringe SUBCUT SCH (07:40)
[2020-11-27] MEDS: Furosemide 40 MG Tab PO SCH (07:45)
[2020-11-27] MEDS: Gabapentin 100 MG Cap PO SCH ×2 (07:45→11:38)
[2020-11-27] MEDS: Aspirin 81 MG Tab.EC PO SCH (07:46)
[2020-11-27] MEDS: Estradiol 1 MG Tab PO SCH (07:46)
[2020-11-27] MEDS: Pantoprazole 40 MG Tab.CR PO SCH (07:46)
[2020-11-27] MEDS: Ferrous Sulfate 324 MG Tab.EC PO SCH (07:46)
[2020-11-27] MEDS ORDERED: Pregabalin 50 MG Cap PO SCH (08:00)
[2020-11-27] MEDS: rOPINIRole 1 MG Tab PO SCH ×3 (08:00→19:24)
[2020-11-27] MEDS ORDERED: Pregabalin 25 MG Cap PO SCH (08:00)
--- NOTE | 2020-11-27 09:39 | PCM.PN ---
- General Info Date of Service: 11/27/20 Admission Dx/Problem (Free Text): Cellulitis of left lower extremity - recurrent Subjective Update: Barbara is a 50 yo female who was admitted to the hospital from the clinic yesterday with cellulitis of the left lower extremity. Patient has known history of cellulitis. Nursing staff were unable to gain IV access yesterday and patient was given 2 grams of Rocephin IM. Legs have been elevated. She denies any new onset of symptoms today. States her leg feels about the same as yesterday. No fevers. States she didn't sleep well as the bed is uncomfortable. Functional Status: Reports: Pain Controlled, Tolerating Diet, Ambulating, Urinating. Denies: New Symptoms - Review of Systems General: Denies: Fever HEENT: Reports: No Symptoms Pulmonary: Reports: No Symptoms Cardiovascular: Reports: No Symptoms Gastrointestinal: Reports: No Symptoms Skin: Reports: Rash (left lower leg) Neurological: Reports: No Symptoms Psychiatric: Reports: No Symptoms - Patient Data Vitals - Most Recent: Last Vital Signs Temp 98.2 F 11/27/20 07:38 Pulse 79 11/27/20 07:38 Resp 16 11/27/20 07:38 BP 127/71 11/27/20 07:38 Pulse Ox 94 L 11/27/20 07:38 Weight - Most Recent: 352 lb 4.8 oz Lab Results Last 24 Hours: Laboratory Results - last 24 hr 11/26/20 11/26/20 11/27/20 Range/Units 16:27 16:27 06:50 WBC 5.4 5.9 (5.0-10.0) 10^3/uL RBC 4.74 4.19 (4.00-5.50) 10^6/uL Hgb 14.1 12.6 (12.0-16.0) g/dL Hct 42.7 38.0 (37.0-47.0) % MCV 90.1 90.7 (82.0-94.0) fL MCH 29.7 30.1 (27.0-32.0) pg MCHC 33.0 33.2 (33.0-38.0) g/dL RDW Coeff of Debi 14.0 14.0 (11.0-15.0) % Plt Count 259 240 (150-400) 10^3/uL Neut % (Auto) 55.9 49.2 (35-85) % Lymph % (Auto) 25.7 32.3 (10-55) % [place] % (Auto) 10.0 10.3 (0-16) % Eos % (Auto) 7.8 H 7.7 H (0-5) % Baso % (Auto) 0.6 0.5 (0-3) % Neut # (Auto) 3.02 2.92 (1.80-7.00) 10^3/uL Lymph # (Auto) 1.39 1.92 (1.00-4.80) 10^3/uL [place] # (Auto) 0.54 0.61 (0.00-0.80) 10^3/uL Eos # (Auto) 0.42 0.46 H (0.00-0.45) 10^3/uL Baso # (Auto) 0.03 0.03 10^3/uL Sodium 145 (136-145) mEq/L Potassium 4.7 D (3.5-5.0) mEq/L Chloride 108 H (98-106) mEq/L Carbon Dioxide 29 (21-32) mmol/L BUN 17 (7-18) mg/dL Creatinine 1.0 (0.6-1.0) mg/dL Est Cr Clr Drug Dosing 55.06 mL/min Estimated GFR (MDRD) 58 L (>=60) mL/min Glucose 113 H (75-99) mg/dL Calcium 9.0 (8.4-10.1) mg/dL C-Reactive Protein 2.4 H (0.2-0.8) mg/dL 11/27/20 Range/Units 06:50 WBC (5.0-10.0) 10^3/uL RBC (4.00-5.50) 10^6/uL Hgb (12.0-16.0) g/dL Hct (37.0-47.0) % MCV (82.0-94.0) fL MCH (27.0-32.0) pg MCHC (33.0-38.0) g/dL RDW Coeff of Debi (11.0-15.0) % Plt Count (150-400) 10^3/uL Neut % (Auto) (35-85) % Lymph % (Auto) (10-55) % [place] % (Auto) (0-16) % Eos % (Auto) (0-5) % Baso % (Auto) (0-3) % Neut # (Auto) (1.80-7.00) 10^3/uL Lymph # (Auto) (1.00-4.80) 10^3/uL [place] # (Auto) (0.00-0.80) 10^3/uL Eos # (Auto) (0.00-0.45) 10^3/uL Baso # (Auto) 10^3/uL Sodium 143 (136-145) mEq/L Potassium 3.9 (3.5-5.0) mEq/L Chloride 108 H (98-106) mEq/L Carbon Dioxide 28 (21-32) mmol/L BUN 13 (7-18) mg/dL Creatinine 0.9 (0.6-1.0) mg/dL Est Cr Clr Drug Dosing 61.17 mL/min Estimated GFR (MDRD) > 60 (>=60) mL/min Glucose 121 H (75-99) mg/dL Calcium 8.3 L (8.4-10.1) mg/dL C-Reactive Protein 2.1 H (0.2-0.8) mg/dL Terry Results Last 24 Hours: Microbiology 11/26/20 16:44 Wound Culture - Preliminary Ankle, Left Gram Negative Rods Staphylococcus Aureus Med Orders - Current: Current Medications Acetaminophen (Acetaminophen 325 Mg Tab) 650 mg PO Q4H PRN PRN Reason: Pain (Mild 1-3)/fever Last Admin: 11/26/20 23:28 Dose: 650 mg Documented by: Albuterol (Albuterol 8 Gm Inhaler) 1 - 2 gm INH Q4H PRN PRN Reason: Shortness of Breath Albuterol/Ipratropium (Albuterol/Ipratropium 3.0-0.5 Mg/3 Ml Neb Soln) 3 ml NEB Q4H PRN PRN Reason: Shortness of Breath Aspirin (Aspirin 81 Mg Tab.Ec) 81 mg PO DAILY [facility] Last Admin: 11/27/20 07:46 Dose: 81 mg Documented by: Ceftriaxone Sodium (Ceftriaxone 2 Gm Vial) 2 gm IVPUSH Q24H [facility] Last Admin: 11/26/20 17:24 Dose: Not Given Documented by: Citalopram Hydrobromide (Citalopram 10 Mg Tab) 20 mg PO DAILY [facility] Last Admin: 11/27/20 07:40 Dose: 20 mg Documented by: Enoxaparin Sodium (Enoxaparin 40 Mg/0.4 Ml Syringe) 40 mg SUBCUT Q24H [facility] Last Admin: 11/27/20 07:40 Dose: 40 mg Documented by: Estradiol (Estradiol 1 Mg Tab) 1 mg PO DAILY [facility] Last Admin: 11/27/20 07:46 Dose: 1 mg Documented by: Ferrous Sulfate (Ferrous Sulfate 324 Mg Tab.Ec) 324 mg PO DAILY [facility] Last Admin: 11/27/20 07:46 Dose: 324 mg Documented by: Furosemide (Furosemide 40 Mg Tab) 40 mg PO DAILY [facility] Last Admin: 11/27/20 07:45 Dose: 40 mg Documented by: Gabapentin (Gabapentin 100 Mg Cap) 200 mg PO BID@0800,1200 [facility] Last Admin: 11/27/20 07:45 Dose: 200 mg Documented by: Gabapentin (Gabapentin 300 Mg Cap) 300 mg PO BEDTIME [facility] Last Admin: 11/26/20 20:05 Dose: 300 mg Documented by: Hydroxyzine HCl (Hydroxyzine Hcl 25 Mg Tab) 50 mg PO TID PRN PRN Reason: Itching Pantoprazole Sodium (Pantoprazole 40 Mg Tab.Cr) 40 mg PO ACBREAKFAST [facility] Last Admin: 11/27/20 07:46 Dose: 40 mg Documented by: Pregabalin (Pregabalin 50 Mg Cap) 50 mg PO BID@0800,1200 [facility] Last Admin: 11/27/20 07:45 Dose: 50 mg Documented by: Pregabalin (Pregabalin 25 Mg Cap) 25 mg PO BID@0800,1200 [facility] Last Admin: 11/27/20 07:45 Dose: 25 mg Documented by: Ropinirole HCl (Ropinirole 1 Mg Tab) 1 mg PO BID@0800,1200 [facility] Last Admin: 11/27/20 08:00 Dose: 1 mg Documented by: Ropinirole HCl (Ropinirole 1 Mg Tab) 4 mg PO BEDTIME [facility] Last Admin: 11/26/20 20:04 Dose: 4 mg Documented by: Simvastatin (Simvastatin 20 Mg Tab) 20 mg PO BEDTIME [facility] Last Admin: 11/26/20 20:05 Dose: 20 mg Documented by: Sodium Chloride (Sodium Chloride 0.9% 10 Ml Syringe) 10 ml FLUSH ASDIRECTED PRN PRN Reason: Keep Vein Open Discontinued Medications Ceftriaxone Sodium (Ceftriaxone 2 Gm Vial) 2 gm IM ONETIME ONE Stop: 11/26/20 17:46 Last Admin: 11/26/20 18:01 Dose: 2 gm Documented by: Lidocaine HCl (Lidocaine 1% 5 Ml Sdv) 4.2 ml INJECT ONETIME ONE Stop: 11/26/20 17:56 Last Admin: 11/26/20 17:59 Dose: 4.2 ml Documented by: - Exam General: Alert, Oriented, Cooperative, No Acute Distress Lungs: Clear to Auscultation, Normal Respiratory Effort Cardiovascular: Regular Rate, Regular Rhythm, No Murmurs Extremities: Normal Inspection, Pedal Edema, Increased Warmth, Redness Wound/Incisions: Dressing Dry and Intact, Drainage, Erythema Improving Psy/Mental Status: Alert, Normal Affect, Normal Mood - Patient Data Lab Results Last 24 hrs: Laboratory Results - last 24 hr 11/26/20 11/26/20 11/27/20 Range/Units 16:27 16:27 06:50 WBC 5.4 5.9 (5.0-10.0) 10^3/uL RBC 4.74 4.19 (4.00-5.50) 10^6/uL Hgb 14.1 12.6 (12.0-16.0) g/dL Hct 42.7 38.0 (37.0-47.0) % MCV 90.1 90.7 (82.0-94.0) fL MCH 29.7 30.1 (27.0-32.0) pg MCHC 33.0 33.2 (33.0-38.0) g/dL RDW Coeff of Debi 14.0 14.0 (11.0-15.0) % Plt Count 259 240 (150-400) 10^3/uL Neut % (Auto) 55.9 49.2 (35-85) % Lymph % (Auto) 25.7 32.3 (10-55) % [place] % (Auto) 10.0 10.3 (0-16) % Eos % (Auto) 7.8 H 7.7 H (0-5) % Baso % (Auto) 0.6 0.5 (0-3) % Neut # (Auto) 3.02 2.92 (1.80-7.00) 10^3/uL Lymph # (Auto) 1.39 1.92 (1.00-4.80) 10^3/uL [place] # (Auto) 0.54 0.61 (0.00-0.80) 10^3/uL Eos # (Auto) 0.42 0.46 H (0.00-0.45) 10^3/uL Baso # (Auto) 0.03 0.03 10^3/uL Sodium 145 (136-145) mEq/L Potassium 4.7 D (3.5-5.0) mEq/L Chloride 108 H (98-106) mEq/L Carbon Dioxide 29 (21-32) mmol/L BUN 17 (7-18) mg/dL Creatinine 1.0 (0.6-1.0) mg/dL Est Cr Clr Drug Dosing 55.06 mL/min Estimated GFR (MDRD) 58 L (>=60) mL/min Glucose 113 H (75-99) mg/dL Calcium 9.0 (8.4-10.1) mg/dL C-Reactive Protein 2.4 H (0.2-0.8) mg/dL 11/27/20 Range/Units 06:50 WBC (5.0-10.0) 10^3/uL RBC (4.00-5.50) 10^6/uL Hgb (12.0-16.0) g/dL Hct (37.0-47.0) % MCV (82.0-94.0) fL MCH (27.0-32.0) pg MCHC (33.0-38.0) g/dL RDW Coeff of Debi (11.0-15.0) % Plt Count (150-400) 10^3/uL Neut % (Auto) (35-85) % Lymph % (Auto) (10-55) % [place] % (Auto) (0-16) % Eos % (Auto) (0-5) % Baso % (Auto) (0-3) % Neut # (Auto) (1.80-7.00) 10^3/uL Lymph # (Auto) (1.00-4.80) 10^3/uL [place] # (Auto) (0.00-0.80) 10^3/uL Eos # (Auto) (0.00-0.45) 10^3/uL Baso # (Auto) 10^3/uL Sodium 143 (136-145) mEq/L Potassium 3.9 (3.5-5.0) mEq/L Chloride 108 H (98-106) mEq/L Carbon Dioxide 28 (21-32) mmol/L BUN 13 (7-18) mg/dL Creatinine 0.9 (0.6-1.0) mg/dL Est Cr Clr Drug Dosing 61.17 mL/min Estimated GFR (MDRD) > 60 (>=60) mL/min Glucose 121 H (75-99) mg/dL Calcium 8.3 L (8.4-10.1) mg/dL C-Reactive Protein 2.1 H (0.2-0.8) mg/dL Result Diagrams: 11/27/20 06:50 11/27/20 06:50 Terry Results Last 24 hrs: Microbiology 11/26/20 16:44 Wound Culture - Preliminary Ankle, Left Gram Negative Rods Staphylococcus Aureus Sepsis Event Note - Evaluation Sepsis Screening Result: No Definite Risk - Focused Exam Vital Signs: Vital Signs Temp Pulse Resp BP Pulse Ox 11/27/20 07:38 98.2 F 79 16 127/71 94 L 11/27/20 04:00 97.9 F 99 20 123/66 94 L 11/27/20 00:00 99.3 F 107 H 20 119/57 L 93 L - Problem List & Annotations (1) Cellulitis of left leg SNOMED Code(s): 834297843 Code(s): L03.116 - CELLULITIS OF LEFT LOWER LIMB Status: Acute Priority: High Current Visit: No - Problem List Review Problem List Initiated/Reviewed/Updated: Yes - My Orders Last 24 Hours: My Active Orders 11/26/20 16:00 Up ad Mary [RC] .PRN Acetaminophen [TylenoL] 650 mg PO Q4H PRN Sodium Chloride 0.9% [Saline Flush] 10 ml FLUSH ASDIRECTED PRN cefTRIAXone [Rocephin] 2 gm IVPUSH Q24H Blood Culture x2 Reflex Set [OM.PC] Stat Saline Lock Insert [OM.PC] Routine Resuscitation Status Routine 11/26/20 16:01 Patient Status [ADT] Routine Oxygen Therapy [RC] .PRN Vital Signs [RC] 1600,2000,0000,0400,0800,1200 11/26/20 16:03 Pulse Oximetry [RC] .PRN 11/26/20 16:09 Elevate Extremity [RC] CONTINUOUS 11/26/20 16:27 CULTURE BLOOD [BC] Stat CULTURE BLOOD [BC] Stat 11/26/20 16:44 CULTURE WOUND [RM] Stat 11/26/20 17:36 Albuterol/Ipratropium [DuoNeb 3.0-0.5 MG/3 ML] 3 ml NEB Q4H PRN 11/26/20 17:38 RT Aerosol Therapy [RC] .PRN 11/26/20 17:58 Albuterol [Ventolin HFA] 1 - 2 gm INH Q4H PRN 11/26/20 Dinner Regular Diet [DIET] 11/26/20 18:18 hydrOXYzine HCL [Atarax] 50 mg PO TID PRN 11/26/20 20:00 Gabapentin [Neurontin] 300 mg PO BEDTIME Simvastatin [Zocor] 20 mg PO BEDTIME rOPINIRole [Requip] 4 mg PO BEDTIME 11/27/20 07:00 Pantoprazole [ProTONIX] 40 mg PO ACBREAKFAST 11/27/20 08:00 Aspirin [Halfprin] 81 mg PO DAILY Citalopram [Celexa] 20 mg PO DAILY Enoxaparin [Lovenox] 40 mg SUBCUT Q24H Ferrous Sulfate 324 mg PO DAILY Furosemide [Lasix] 40 mg PO DAILY Gabapentin [Neurontin] 200 mg PO BID@0800,1200 Pregabalin [Lyrica] 25 mg PO BID@0800,1200 Pregabalin [Lyrica] 50 mg PO BID@0800,1200 estradioL 1 mg PO DAILY rOPINIRole [Requip] 1 mg PO BID@0800,1200 11/28/20 08:00 BASIC METABOLIC PANEL,BMP [CHEM] DAILY C-REACTIVE PROTEIN [CHEM] DAILY CBC WITH AUTO DIFF [HEME] DAILY 11/29/20 08:00 BASIC METABOLIC PANEL,BMP [CHEM] DAILY C-REACTIVE PROTEIN [CHEM] DAILY CBC WITH AUTO DIFF [HEME] DAILY 11/30/20 08:00 BASIC METABOLIC PANEL,BMP [CHEM] DAILY C-REACTIVE PROTEIN [CHEM] DAILY CBC WITH AUTO DIFF [HEME] DAILY - Plan Plan:: Left lower extremity has shown improvement since yesterday. Preliminary culture shows abundance of staph aureus and gram negative rods. Will continue with IM Rocephin today and judiciously keeping lower extremity elevated. Discussed possible discharge tomorrow, pending final culture report.
[2020-11-27] MEDS: Acetaminophen 325 MG Tab PO PRN ×2 (10:46→22:07)
[2020-11-27] MEDS ORDERED: cefTRIAXone 2 GM Vial IM SCH (16:00)
[2020-11-27] MEDS: Simvastatin 20 MG Tab PO SCH (19:24)
[2020-11-27] MEDS: Gabapentin 300 MG Cap PO SCH (19:24)
[2020-11-27] MEDS: Pregabalin 50 MG Cap PO SCH (19:25)
[2020-11-27] MEDS: Pregabalin 25 MG Cap PO SCH (19:25)
[2020-11-28] MEDS: Pantoprazole 40 MG Tab.CR PO SCH (06:41)
[2020-11-28 07:48] LABS: CHLORIDE,CL 106 mEq/L (98-106); SODIUM,NA 143 mEq/L (136-145)
[2020-11-28] MEDS: Gabapentin 100 MG Cap PO SCH ×2 (08:00→11:56)
[2020-11-28] MEDS: Pregabalin 25 MG Cap PO SCH (08:27)
[2020-11-28] MEDS: Estradiol 1 MG Tab PO SCH (08:27)
[2020-11-28] MEDS: Aspirin 81 MG Tab.EC PO SCH (08:27)
[2020-11-28] MEDS: Ferrous Sulfate 324 MG Tab.EC PO SCH (08:27)
[2020-11-28] MEDS: Enoxaparin 40 MG/0.4 ML Syringe SUBCUT SCH (08:28)
[2020-11-28] MEDS: Pregabalin 50 MG Cap PO SCH (08:28)
[2020-11-28] MEDS: rOPINIRole 1 MG Tab PO SCH ×2 (08:28→11:56)
[2020-11-28] MEDS: Furosemide 40 MG Tab PO SCH (08:28)
[2020-11-28] MEDS: Citalopram 10 MG Tab PO SCH (08:29)
[2020-11-28 15:30] VITALS: BP 140/75; PULSE 68
[2020-11-28] MEDS ORDERED: Ceres/Mineral Oil/Petrolatum/Wool Alcohol Cream 113 GM Tube TOP SCH (20:00)
--- NOTE | 2020-12-02 00:32 | PCM.DCSUM1 ---
Discharge Summary - Hospital Course HPI Initial Comments: Barbara is a 50 yo female who was admitted from the clinic on the with cellulitis of the left lower extremity. Patient was admitted for IV antibiotics. Has known history of recurrent cellulitis. patient had not been compliant with keeping lower extremity elevated recently. Diagnosis: Stroke: No - Discharge Data Discharge Date: 11/28/20 Discharge Disposition: Home, Self-Care 01 Condition: Good - Referral to Home Health Primary Care Physician: Mike Mojica PA-C - Discharge Diagnosis/Problem(s) (1) Cellulitis of left leg SNOMED Code(s): 740277859 ICD Code: L03.116 - CELLULITIS OF LEFT LOWER LIMB Status: Acute Priority: High - Discharge Plan Prescriptions/Med Rec: levoFLOXacin [Levaquin] 500 mg PO DAILY 10 Days #10 tab Home Medications: Home Meds Albuterol [IJD: Ventolin HFA] 1 - 2 puff INH Q4H PRN 01/14/16 [History] Albuterol/Ipratropium [DuoNeb 3.0-0.5 MG/3 ML] 3 ml NEB Q4HRRT PRN 01/14/16 [History] Aspirin [Halfprin] 81 mg PO DAILY 01/14/16 [History] Furosemide [Lasix] 40 mg PO DAILY 01/14/16 [History] Simvastatin 20 mg PO BEDTIME 01/14/16 [History] estradioL [Estradiol] 1 mg PO DAILY 01/14/16 [History] rOPINIRole HCl [Ropinirole HCl] 4 mg PO BEDTIME 01/14/16 [History] Ferrous Sulfate [Iron] 325 mg PO DAILY 01/23/16 [History] Pantoprazole Sodium 40 mg PO DAILY 01/23/16 [History] Glucosamine/Chondroitn/C/Steve [Glucosamine-Chondr Complex] 1 each PO DAILY 02/16/19 [History] Pregabalin [Lyrica] 75 mg PO BID 02/16/19 [History] Escitalopram [Lexapro] 10 mg PO DAILY 03/10/20 [History] Gabapentin [Neurontin] 200 mg PO BID 03/10/20 [History] hydrOXYzine HCL [Hydroxyzine HCl] 50 mg PO TID PRN 03/10/20 [History] rOPINIRole [Requip] 1 mg PO BID 03/10/20 [History] Ibuprofen [Advil] 200 mg PO ASDIRECTED PRN 09/02/20 [History] Gabapentin [Neurontin] 300 mg PO BEDTIME 11/26/20 [History] [place]/Min Oil/[place]/Wool Alcoh [Eucerin Creme] 25 gm TOP BID tube 11/28/20 [Rx] levoFLOXacin [Levaquin] 500 mg PO DAILY 10 Days #10 tab 11/28/20 [Rx] Oxygen Therapy Mode: Room Air Patient Handouts: Cellulitis, Adult Referrals: Apple Mae PA [ED Midlevel Provider] - (1 week) - Discharge Summary/Plan Comment DC Time >30 min.: Yes Discharge Summary/Plan Comment: Barbara's leg has showed decreasing in erythematous area. Significant improvement with work. Patient to be discharged home on oral antibiotics. Culture report received, which did show Pseudomonas and MRSA. Consulted with Dr. Good and reviewed culture report. Negative blood cultures. Will follow up next week for recheck. - General Info Admission Dx/Problem (Free Text: Cellulitis of left lower extremity - recurrent Subjective Update: Barbara is a 50 yo female who was admitted to the hospital from the clinic y esterday with cellulitis of the left lower extremity. Patient has known history of cellulitis. Nursing staff were unable to gain IV access yesterday and patient was given 2 grams of Rocephin IM. Legs have been elevated. She denies any new onset of symptoms today. States her leg feels about the same as yesterday. No fevers. States she didn't sleep well as the bed is uncomfortable. Barbara is in good spirits today. Feels ready to be discharged home. States swelling and warmth has went down. Continues to ge itchy. Functional Status: Reports: Pain Controlled, Tolerating Diet, Ambulating, Urinating - Review of Systems General: Reports: No Symptoms HEENT: Reports: No Symptoms Pulmonary: Reports: No Symptoms Cardiovascular: Reports: No Symptoms Genitourinary: Reports: Retention Musculoskeletal: Reports: No Symptoms Skin: Reports: Rash (Chronic stasis dermatitis. Erythema has improved. ) Neurological: Reports: No Symptoms - Patient Data Vitals - Most Recent: Last Vital Signs Temp 98.3 F 11/28/20 12:00 Pulse 68 11/28/20 12:00 Resp 20 11/28/20 12:00 BP 140/75 11/28/20 12:00 Pulse Ox 95 11/28/20 12:00 Weight - Most Recent: 352 lb 4.8 oz GAYLA Results - Last 24 hrs: Microbiology 11/26/20 16:27 Aerobic Blood Culture - Final Blood - Venous NO GROWTH AFTER 5 DAYS Anaerobic Blood Culture - Final NO GROWTH AFTER 5 DAYS 11/26/20 16:27 Aerobic Blood Culture - Final Blood - Venous - Lab Draw NO GROWTH AFTER 5 DAYS Anaerobic Blood Culture - Final NO GROWTH AFTER 5 DAYS Med Orders - Current: Current Medications Discontinued Medications Acetaminophen (Acetaminophen 325 Mg Tab) 650 mg PO Q4H PRN PRN Reason: Pain (Mild 1-3)/fever Last Admin: 11/27/20 22:07 Dose: 650 mg Documented by: Albuterol (Albuterol 8 Gm Inhaler) 1 - 2 gm INH Q4H PRN PRN Reason: Shortness of Breath Albuterol/Ipratropium (Albuterol/Ipratropium 3.0-0.5 Mg/3 Ml Neb Soln) 3 ml NEB Q4H PRN PRN Reason: Shortness of Breath Aspirin (Aspirin 81 Mg Tab.Ec) 81 mg PO DAILY [facility] Last Admin: 11/28/20 08:27 Dose: 81 mg Documented by: Ceftriaxone Sodium (Ceftriaxone 2 Gm Vial) 2 gm IVPUSH Q24H [facility] Last Admin: 11/26/20 17:24 Dose: Not Given Documented by: Ceftriaxone Sodium (Ceftriaxone 2 Gm Vial) 2 gm IM ONETIME ONE Stop: 11/26/20 17:46 Last Admin: 11/26/20 18:01 Dose: 2 gm Documented by: Ceftriaxone Sodium (Ceftriaxone 2 Gm Vial) 2 gm IM DAILY@1600 [facility] Last Admin: 11/27/20 15:25 Dose: 2 gm Documented by: Citalopram Hydrobromide (Citalopram 10 Mg Tab) 20 mg PO DAILY [facility] Last Admin: 11/28/20 08:29 Dose: 20 mg Documented by: Enoxaparin Sodium (Enoxaparin 40 Mg/0.4 Ml Syringe) 40 mg SUBCUT Q24H [facility] Last Admin: 11/28/20 08:28 Dose: 40 mg Documented by: Estradiol (Estradiol 1 Mg Tab) 1 mg PO DAILY [facility] Last Admin: 11/28/20 08:27 Dose: 1 mg Documented by: Ferrous Sulfate (Ferrous Sulfate 324 Mg Tab.Ec) 324 mg PO DAILY [facility] Last Admin: 11/28/20 08:27 Dose: 324 mg Documented by: Furosemide (Furosemide 40 Mg Tab) 40 mg PO DAILY [facility] Last Admin: 11/28/20 08:28 Dose: 40 mg Documented by: Gabapentin (Gabapentin 100 Mg Cap) 200 mg PO BID@0800,1200 [facility] Last Admin: 11/28/20 11:56 Dose: 200 mg Documented by: Gabapentin (Gabapentin 300 Mg Cap) 300 mg PO BEDTIME [facility] Last Admin: 11/27/20 19:24 Dose: 300 mg Documented by: Hydroxyzine HCl (Hydroxyzine Hcl 25 Mg Tab) 50 mg PO TID PRN PRN Reason: Itching Last Admin: 11/27/20 22:07 Dose: 50 mg Documented by: Lidocaine HCl (Lidocaine 1% 5 Ml Sdv) 4.2 ml INJECT ONETIME ONE Stop: 11/26/20 17:56 Last Admin: 11/26/20 17:59 Dose: 4.2 ml Documented by: Lidocaine HCl (Lidocaine 1% 5 Ml Sdv) 4.2 ml INJECT DAILY@1600 ONE Stop: 11/27/20 16:01 Last Admin: 11/27/20 15:25 Dose: 4.2 ml Documented by: Multi-Ingredient Ointment ([place]/Mineral Oil/Petrolatum/Wool Alcohol Cream 113 Gm Tube) 25 gm TOP BID [facility] Pantoprazole Sodium (Pantoprazole 40 Mg Tab.Cr) 40 mg PO ACBREAKFAST [facility] Last Admin: 11/28/20 06:41 Dose: 40 mg Documented by: Pregabalin (Pregabalin 50 Mg Cap) 50 mg PO BID@0800,1200 [facility] Last Admin: 11/27/20 07:45 Dose: 50 mg Documented by: Pregabalin (Pregabalin 25 Mg Cap) 25 mg PO BID@0800,1200 [facility] Last Admin: 11/27/20 07:45 Dose: 25 mg Documented by: Pregabalin (Pregabalin 50 Mg Cap) 50 mg PO BID [facility] Last Admin: 11/28/20 08:28 Dose: 50 mg Documented by: Pregabalin (Pregabalin 25 Mg Cap) 25 mg PO BID [facility] Last Admin: 11/28/20 08:27 Dose: 25 mg Documented by: Ropinirole HCl (Ropinirole 1 Mg Tab) 1 mg PO BID@0800,1200 [facility] Last Admin: 11/28/20 11:56 Dose: 1 mg Documented by: Ropinirole HCl (Ropinirole 1 Mg Tab) 4 mg PO BEDTIME [facility] Last Admin: 11/27/20 19:24 Dose: 4 mg Documented by: Simvastatin (Simvastatin 20 Mg Tab) 20 mg PO BEDTIME [facility] Last Admin: 11/27/20 19:24 Dose: 20 mg Documented by: Sodium Chloride (Sodium Chloride 0.9% 10 Ml Syringe) 10 ml FLUSH ASDIRECTED PRN PRN Reason: Keep Vein Open - Exam General: Reports: Alert, Oriented, Cooperative Lungs: Reports: Clear to Auscultation, Normal Respiratory Effort Cardiovascular: Reports: Regular Rate, Regular Rhythm GI/Abdominal Exam: Normal Bowel Sounds, Soft, Non-Tender Skin: Reports: Other (overall cellulitis has significantly improved.) Wound/Incisions: Reports: Erythema Improving Psy/Mental Status: Reports: Alert, Normal Affect
== END 2020-11-28 14:15 | disposition home or self-care (01) | DRG 603 ==
LOC: UNDOADMIN 15:17 → CC.MS 15:17
PROVIDERS: ADMIT Physician Assistant Medical; ATTEND Family Medicine
DX: L03.116 Cellulitis of left lower limb (principal); Z87.01 Personal history of pneumonia (recurrent); Z86.69 Personal history of other diseases of the nervous system and sense organs; Z87.09 Personal history of other diseases of the respiratory system; Z86.2 Personal history of diseases of the blood and blood-forming organs and certain disorders involving the immune mechanism; Z90.710 Acquired absence of both cervix and uterus; Z79.899 Other long term (current) drug therapy; Z88.2 Allergy status to sulfonamides; Z88.1 Allergy status to other antibiotic agents; Z88.0 Allergy status to penicillin; Z91.013 Allergy to seafood; Z91.040 Latex allergy status; Z91.018 Allergy to other foods
CPT/HCPCS: 36415; 80048; 85025; 86140; 87040; 87070; 87077; 87186; A9270-GY; J0696; J1650

== ENCOUNTER 2022-06-07 08:01 | Emergency (ER) | payer OTHER ==
[2022-06-07] MEDS ORDERED: Cyclobenzaprine 10 MG Tab PO ONE (08:13)
[2022-06-07] MEDS ORDERED: Lidocaine 5% 700 MG Patch TRDERM ONE (08:14)
[2022-06-07] MEDS ORDERED: Ketorolac 30 MG/ML SDV IVPUSH ONE (08:14)
[2022-06-07 08:15] VITALS: BP 170/67; PULSE 85
[2022-06-07] MEDS ORDERED: Ketorolac 30 MG/ML SDV IM ONE (08:21)
== END 2022-06-07 08:40 | disposition home or self-care (01) ==
LOC: CC.ED 08:01
DX: M25.512 Pain in left shoulder (principal); M62.838 Other muscle spasm; K21.9 Gastro-esophageal reflux disease without esophagitis; Z79.899 Other long term (current) drug therapy; Z88.8 Allergy status to other drugs, medicaments and biological substances; Z88.0 Allergy status to penicillin; Z88.2 Allergy status to sulfonamides
CPT/HCPCS: 96372; 99283; A9270; J1885

== ENCOUNTER 2022-07-28 16:45 | Emergency (ER) | payer OTHER ==
[2022-07-28] MEDS ORDERED: Sodium Chloride 0.9% 1,000 ML IV ONE (17:14)
[2022-07-28 17:50] VITALS: BP 139/72; PULSE 89
[2022-07-28] MEDS ORDERED: Ondansetron 4 MG/2 ML SDV IVPUSH ONE (18:22)
[2022-07-28] MEDS ORDERED: Acetaminophen/HYDROcodone 325-5 MG Tab PO ONE (18:23)
== END 2022-07-28 20:47 | disposition home or self-care (01) ==
LOC: CC.ED 16:45
DX: R55 Syncope and collapse (principal); R10.9 Unspecified abdominal pain; J45.909 Unspecified asthma, uncomplicated; Z88.1 Allergy status to other antibiotic agents; Z88.0 Allergy status to penicillin; Z88.2 Allergy status to sulfonamides; Z91.040 Latex allergy status; Z91.013 Allergy to seafood; Z91.018 Allergy to other foods; Z79.899 Other long term (current) drug therapy; Z90.710 Acquired absence of both cervix and uterus
CPT/HCPCS: 81001; 82150; 83690; 85025; 96361; 96374; 99284; A9270; J1642; J2405; J7030

== ENCOUNTER 2023-04-03 08:40 | Emergency (ER) | payer BC ==
[2023-04-03 09:11] LABS: BASOPHILS ABSOLUTE AUTO 0.02 10^3/uL (0.00-0.50); BASOPHILS PERCENT AUTO 0.2 % (0-1); EOSINOPHILS ABSOLUTE AUTO 0.05 10^3/uL (0.00-1.50); EOSINOPHILS PERCENT AUTO 0.5 % (0-6); HEMATOCRIT 43.6 % (37.0-47.0); IMMATURE GRAN ABSOLUTE AUTO 0.01 10^3/uL (0.00-0.49); IMMATURE GRAN PERCENT AUTO 0.1 % (0.0-4.9); LYMPHOCYTES ABSOLUTE AUTO 1.08 10^3/uL (0.60-5.00); LYMPHOCYTES PERCENT AUTO 10.5 % (24-44); MEAN CORPUSCULAR HEMOGLOBIN 32.2 pg (27.0-32.0); MEAN CORPUSCULAR HGB CONC 34.4 g/dL (32.0-36.0); MEAN CORPUSCULAR VOLUME 93.6 fL (83.0-97.0); MONOCYTES ABSOLUTE AUTO 0.62 10^3/uL (0.00-1.50); NEUTROPHILS ABSOLUTE AUTO 8.55 x10^3/uL (1.80-8.00); NEUTROPHILS PERCENT AUTO 82.7 % (41-71); PLATELET COUNT,PLT 212 10^3/uL (150-400); RED BLOOD CELL COUNT 4.66 x10^6/uL (4.00-5.50); WHITE BLOOD CELL COUNT,WBC 10.3 10^3/uL (4.0-11.0)
[2023-04-03 09:23] LABS: ALBUMIN 3.8 g/dL (3.4-5.0); BILIRUBIN TOTAL 0.5 mg/dL (0.0-1.0); CALCIUM 9.9 mg/dL (8.4-10.1); CREATININE 1.1 mg/dL (0.6-1.0); EST CRCL DRUG DOSING (CG) 48.93 mL/min; POTASSIUM,K 4.3 mEq/L (3.5-5.0); PROTEIN TOTAL,TP 7.4 g/dL (6.4-8.2)
[2023-04-03 09:25] LABS: APPEARANCE,URINE CLEAR (CLEAR); BILIRUBIN,URINE SMALL (NEGATIVE); COLOR,URINE DARK YELLOW (YELLOW); GLUCOSE,URINE NEGATIVE (NEGATIVE); KETONES,URINE TRACE mg/dL (NEGATIVE); LEUKOCYTE ESTERASE,URINE SMALL (NEGATIVE); NITRITE,URINE NEGATIVE (NEGATIVE); OCCULT BLOOD,URINE MODERATE (NEGATIVE); PROTEIN,URINE 100 mg/dL (NEGATIVE)
[2023-04-03 09:29] LABS: BACTERIA,URINE OCCASIONAL /HPF (NOT SEEN); EPITHELIAL CELLS,URINE FEW /HPF (NOT SEEN); WBC CASTS,URINE FEW /LPF (NOT SEEN); WBC,URINE 0-5 /HPF (0-5)
[2023-04-03 10:25] VITALS: BP 132/70; PULSE 88
== END 2023-04-03 09:50 | disposition home or self-care (01) ==
LOC: CC.ED 08:40
DX: K62.5 Hemorrhage of anus and rectum (principal); R19.5 Other fecal abnormalities; E11.9 Type 2 diabetes mellitus without complications; K21.9 Gastro-esophageal reflux disease without esophagitis; I11.0 Hypertensive heart disease with heart failure; I50.9 Heart failure, unspecified; E78.00 Pure hypercholesterolemia, unspecified; J45.909 Unspecified asthma, uncomplicated; Z88.1 Allergy status to other antibiotic agents; Z88.0 Allergy status to penicillin; Z91.018 Allergy to other foods; Z88.2 Allergy status to sulfonamides; Z91.040 Latex allergy status; Z91.013 Allergy to seafood; Z79.84 Long term (current) use of oral hypoglycemic drugs; Z79.899 Other long term (current) drug therapy
CPT/HCPCS: 36415; 80053; 81001; 85025; 99284

== ENCOUNTER → 2023-04-16 | Day surgery (SDC) | payer BC ==
[~2023-04-16] MED LIST: Flumazenil 0.1 MG/ML 10 ML MDV ONE; Ketamine 200 MG/20 ML MDV ONE; Lactated Ringers 1,000 ML IV SCH; Midazolam 1 MG/ML 2 ML SDV ONE; Phenylephrine 1% 10 MG/ML SDV ONE; Propofol 200 MG/20 ML SDV ONE; Sodium Chloride 0.9% 10 ML Sterile Syringe FLUSH ONE; fentaNYL 50 MCG/ML SDV ONE
[2023-04-16 10:33] VITALS: BP 113/61; PULSE 86
== END ==
LOC: CC.SDS 08:07
PROVIDERS: ATTEND Family Medicine
DX: K63.5 Polyp of colon (principal); K62.89 Other specified diseases of anus and rectum; J45.909 Unspecified asthma, uncomplicated; K21.9 Gastro-esophageal reflux disease without esophagitis; I10 Essential (primary) hypertension; E78.5 Hyperlipidemia, unspecified; G62.9 Polyneuropathy, unspecified; M17.0 Bilateral primary osteoarthritis of knee; G25.81 Restless legs syndrome; E11.9 Type 2 diabetes mellitus without complications; E66.01 Morbid (severe) obesity due to excess calories; Z88.2 Allergy status to sulfonamides; Z88.0 Allergy status to penicillin; Z88.1 Allergy status to other antibiotic agents; Z88.8 Allergy status to other drugs, medicaments and biological substances; Z91.040 Latex allergy status; Z91.013 Allergy to seafood; Z91.018 Allergy to other foods; Z79.84 Long term (current) use of oral hypoglycemic drugs; Z79.899 Other long term (current) drug therapy; Z79.85 Long-term (current) use of injectable non-insulin antidiabetic drugs; Z79.51 Long term (current) use of inhaled steroids
CPT/HCPCS: J2250; J2370; J2704; J3010; J3490; J7120

== ENCOUNTER 2024-01-28 05:39 | Emergency (ER) | payer MEDICARE ==
[2024-01-28 05:45] VITALS: BP 132/72; PULSE 93
[2024-01-28] MEDS: Ondansetron 4 MG/2 ML SDV IVPUSH PRN (06:04)
[2024-01-28] MEDS: Sodium Chloride 0.9% 1,000 ML IV ONE (06:04)
[2024-01-28 06:13] LABS: BASOPHILS ABSOLUTE AUTO 0.01 10^3/uL (0.00-0.50); BASOPHILS PERCENT AUTO 0.1 % (0-1); EOSINOPHILS ABSOLUTE AUTO 0.06 10^3/uL (0.00-1.50); EOSINOPHILS PERCENT AUTO 0.5 % (0-6); HEMATOCRIT 47.3 % (37.0-47.0); IMMATURE GRAN ABSOLUTE AUTO 0.02 10^3/uL (0.00-0.49); IMMATURE GRAN PERCENT AUTO 0.2 % (0.0-4.9); LYMPHOCYTES ABSOLUTE AUTO 0.45 10^3/uL (0.60-5.00); MEAN CORPUSCULAR HEMOGLOBIN 32.5 pg (27.0-32.0); MEAN CORPUSCULAR HGB CONC 33.8 g/dL (32.0-36.0); MEAN CORPUSCULAR VOLUME 95.9 fL (83.0-97.0); MONOCYTES ABSOLUTE AUTO 0.43 10^3/uL (0.00-1.50); MONOCYTES PERCENT AUTO 3.8 % (0-10); NEUTROPHILS ABSOLUTE AUTO 10.39 x10^3/uL (1.80-8.00); NEUTROPHILS PERCENT AUTO 91.4 % (41-71); PLATELET COUNT,PLT 225 10^3/uL (150-400); RED BLOOD CELL COUNT 4.93 x10^6/uL (4.00-5.50); WHITE BLOOD CELL COUNT,WBC 11.4 10^3/uL (4.0-11.0)
[2024-01-28 06:24] LABS: ALANINE AMINOTRANSFERASE,ALT 31 U/L (12-78); ALBUMIN 3.8 g/dL (3.4-5.0); ALKALINE PHOSPHATASE 97 U/L (46-116); ASPARTATE AMNIOTRANSFERASE,AST 23 U/L (15-37); BILIRUBIN TOTAL 0.7 mg/dL (0.0-1.0); BLOOD UREA NITROGEN,BUN 20 mg/dL (7-18); C-REACTIVE PROTEIN < 0.50 mg/dL (<=0.50); CARBON DIOXIDE,CO2 25 mmol/L (21-32); CHLORIDE,CL 107 mEq/L (98-106); ESTIMATED GFR 67 mL/min (>=60); GLUCOSE RANDOM 160 mg/dL (75-99); LIPASE 107 U/L (16-77); POTASSIUM,K 4.6 mEq/L (3.5-5.0); PROTEIN TOTAL,TP 7.6 g/dL (6.4-8.2); SODIUM,NA 144 mEq/L (136-145)
[2024-01-28] MEDS: Sodium Chloride 0.9% 1,000 ML IV SCH (07:56)
== END 2024-01-28 09:15 | disposition home or self-care (01) ==
LOC: CC.ED 05:39
DX: K52.9 Noninfective gastroenteritis and colitis, unspecified (principal); I11.0 Hypertensive heart disease with heart failure; I50.9 Heart failure, unspecified; J45.909 Unspecified asthma, uncomplicated; K21.9 Gastro-esophageal reflux disease without esophagitis; E11.9 Type 2 diabetes mellitus without complications; Z88.0 Allergy status to penicillin; Z88.2 Allergy status to sulfonamides; Z91.013 Allergy to seafood; Z91.018 Allergy to other foods; Z91.040 Latex allergy status; Z88.8 Allergy status to other drugs, medicaments and biological substances; Z79.84 Long term (current) use of oral hypoglycemic drugs; Z79.899 Other long term (current) drug therapy; Z90.710 Acquired absence of both cervix and uterus
CPT/HCPCS: 36415; 80053; 83690; 85025; 86140; 96361; 96374; 99284; 99284-25; J1642; J2405; J7030